=== PATIENT | male | born 1940 | race Caucasian/White ===

== ENCOUNTER 2017-10-03 13:23 | Outpatient (POV) | payer MEDICARE, SELFPAY | END 2017-10-03 16:02 | disposition home or self-care (01) | PROVIDERS: Visit Provider Podiatrist | DX: E11.52 Type 2 diabetes mellitus with diabetic peripheral angiopathy with gangrene (principal); L03.032 Cellulitis of left toe; M06.9 Rheumatoid arthritis, unspecified; M25.572 Pain in left ankle and joints of left foot | CPT/HCPCS: 99203; G0127; 73630 ==

== ENCOUNTER 2017-10-11 10:44 | Outpatient (POV) | payer MEDICARE, SELFPAY | END 2017-10-11 13:59 | disposition home or self-care (01) | PROVIDERS: Visit Provider Podiatrist | DX: M06.9 Rheumatoid arthritis, unspecified (principal); L97.523 Non-pressure chronic ulcer of other part of left foot with necrosis of muscle | CPT/HCPCS: 11042; 99213 ==

== ENCOUNTER → 2017-10-20 | Outpatient (POV) | payer MEDICARE, SELFPAY | PROVIDERS: Visit Provider Internal Medicine | DX: I25.10 Atherosclerotic heart disease of native coronary artery without angina pectoris (principal); I73.9 Peripheral vascular disease, unspecified; I10 Essential (primary) hypertension; E11.9 Type 2 diabetes mellitus without complications; R94.31 Abnormal electrocardiogram [ECG] [EKG]; I45.2 Bifascicular block | CPT/HCPCS: 93005 ==

== ENCOUNTER → 2017-10-21 | Day surgery (SDC) | payer MEDICARE, SELFPAY | PROVIDERS: Family Provider Internal Medicine; PCP Internal Medicine; Visit Provider Internal Medicine | DX: I70.262 Atherosclerosis of native arteries of extremities with gangrene, left leg (principal); I45.2 Bifascicular block | CPT/HCPCS: 37226; 75630; 80048; 85025; 85347; 99152; C1725; C1760; C1766; C1769; C1894; J1644; Q9966 ==

== ENCOUNTER → 2017-10-31 14:32 | Outpatient (CLI) | payer MEDICARE, SELFPAY ==
[2017-10-31 15:07] LABS: Basophils # 0.1 K/mm3 (0-0.2); Basophils % 0.7 % (0.1-2.0); Eosinophils % 10.7 % (0.1-12.0); Hematocrit 41.5 % (42.0-52.0); Hemoglobin 13.1 g/dL (14.1-18.0); Lymphocytes # 1.4 K/mm3 (0.7-4.5); Mean Corpuscular HGB Conc 31.6 g/dL (31.8-35.4); Mean Corpuscular Hemoglobin 34.3 pg (27.0-31.2); Mean Corpuscular Volume 108.6 fl (80-94); Mean Platelet Volume 8.5 fl (7.4-10.4); Monocytes # 0.6 K/mm3 (0.1-1.0); Monocytes % 6.1 % (1.7-9.3); Neutrophils # 6.1 K/mm3 (1.8-7.8); Neutrophils % 67.5 % (37.0-80.0); Platelet Count 424 K/mm3 (142-424); Red Blood Count 3.82 M/mm3 (4.60-6.20); Red Cell Distribution Width 14.7 % (11.5-17.5); White Blood Count 9.1 K/mm3 (4.8-10.8)
[2017-10-31 15:34] LABS: Hemoglobin A1C 6.9 % (0.0-7.0)
[2017-10-31 15:39] LABS: Anion Gap 11.3 mEq/L (5-15); Blood Urea Nitrogen 16 mg/dL (7-18); Carbon Dioxide 30 mmol/L (21.0-32.0); Chloride 100 mmol/L (98-107); Estimated Glomerular Filt Rate 73 ml/min (>60); GFR (African American) 88 ML/MIN (>60); Glucose 148 mg/dL (74-106); Potassium 5.3 mmoL/L (3.5-5.1); Sodium 136 mmol/L (136-145)
[2017-10-31 15:46] LABS: C-Reactive Protein < 0.2 mg/L (0.0-0.9)
[2017-10-31 15:58] LABS: Erythrocyte Sedimentation Rate 58 mm/hr (0-20)
== END ==
PROVIDERS: PCP Podiatrist; Visit Provider Podiatrist
DX: E10.622 Type 1 diabetes mellitus with other skin ulcer (principal); E10.9 Type 1 diabetes mellitus without complications
CPT/HCPCS: 36415; 80048; 83036; 85025; 85651; 86140

== ENCOUNTER 2017-12-02 06:00 | Day surgery (SDC) | payer MEDICARE, SELFPAY ==
[2017-11-29 14:32] VITALS: BMI 33.9
[2017-12-02] VITALS (9 sets, daily range): BP systolic 113–134; BP diastolic 60–68; PULSE 65–84; RESP 16–18; TEMP 36.1–36.4; O2SAT 93–100
[2017-12-02 06:38] LABS: POC Glucose,Bedside 132 mg/dL
--- NOTE | 2017-12-02 07:07 | P.PN_ITS ---
[facility] Anesthesia Checklist - Patient Identification Patient Identification: Arm Band - Structural Data Admitted From: Home Planned Operative Procedure/s: bmt Consent for Planned Operative Procedure(s) Verified: Yes Verified Documents: Surgical Consent, History and Physical - NPO Status Verified Time NPO: 00:00 - Additional verifications Anesthesia Reactions: No - Airway Assessment C-Spine Mobility Assessed: Yes TMJ Mobility Assessed: Yes Dentition: Edentulous - Neurological Assessment Level of Consciousness: Awake, Alert - Anesthesia Plan Anesthesia Risk discussed: Yes Anesthesia Plan: Verified ASA Class: III Anesthesia Type: General [facility] Anesthesia HX I have reviewed the patient's past medical history: Yes Medical History: Reports:: Coronary Artery Disease, Deep Vein Thrombosis, Diabetes Mellitus Type 2 (on meds and isulin), Hyperlipidemia, Hypertension, Myocardial Infarction, Peripheral Artery Disease, Peripheral Vascular Disease Denies:: Asthma, Atrial Fibrillation, Cancer, Congestive Heart Failure, Chronic Obstructive Pulmonary Disease (COPD), Gastroesophageal Reflux Disease( GERD), Gastrointestinal Bleed, Internal Pacemaker, Kidney Stones, MRSA, Osteoporosis, Pulmonary Embolism, Renal Disease, Seizures Other Medical History: Reports: Arthritis, Cataracts, Glaucoma. Denies: Blood Transfusion Reaction, Fibromyalgia, Hypothyroidism, Osteoporosis, Thyroid Disease Other Surgeries: Yes: Splenectomy, Other. No: Pacemaker Amputation: No Fractures: Yes Comment: cabg *Family Hx:: No significant family history
--- NOTE | 2017-12-02 08:12 | HMH.ANESI ---
[facility] Anesthesia Record Part I Intake, IV Amount: 500 Estimated blood loss (mL): 0 Urine output (mL): 0 Blood Pressure: 115/60 SaO2: 93 Pulse Rate: 78 Respiratory Rate: 16 Temperature: 97 F Patient is:: Awake, Stable Stable to PACU at:: 08:10
--- NOTE | 2017-12-02 08:13 | P.PN_ITS ---
[facility] Anesthesia Record Part II Discharge Time: 08:40 Destination: [facility] PACU nurse assessment reviewed?: Yes Patient Condition:: Good Anesthesia Complications:: None
--- NOTE | 2017-12-02 08:13 | HMH.ANESII ---
[facility] Anesthesia Record Part II Discharge Time: 08:40 Destination: [facility] PACU nurse assessment reviewed?: Yes Patient Condition:: Good Anesthesia Complications:: None
--- NOTE | 2017-12-02 14:41 | HMH.OPNOTE ---
Date of procedure: 12/02/17 Pre-op Diagnosis:: Chronic serous otitis media Post-op diagnosis:: same Procedure performed:: Bilateral myringotomy tube placement Surgeon:: Vito Coronado MD SAP ADMINISTRATOR:: Jay Chin Anesthesia: GETA Estimated blood loss (mL): 0 Operative findings:: With the patient under general anesthesia the right ear was prepped and draped. Using the operating microscope for all the procedure and incision was made in the posterior inferior quadrant of the right tympanic membrane. Serous fluid was aspirated and an Kline beveled tube was placed. Ciprodex drops were applied. The left ear was done in the same fashion. An Kline beveled tube was placed and Ciprodex drops were applied. Patient tolerated the procedure well and was sent to recovery in good general condition Pathology: none sent Condition: stable Disposition: PACU Complications:: none
--- NOTE | 2017-12-02 14:51 | P.OP_ITS ---
Date of procedure: 12/02/17 Pre-op Diagnosis:: Chronic serous otitis media Post-op diagnosis:: same Procedure performed:: Bilateral myringotomy tube placement Surgeon:: Vito Coronado MD SAFETY INSTRUCTOR:: Jay Chin Anesthesia: GETA Estimated blood loss (mL): 0 Operative findings:: With the patient under general anesthesia the right ear was prepped and draped. Using the operating microscope for all the procedure and incision was made in the posterior inferior quadrant of the right tympanic membrane. Serous fluid was aspirated and an Kline beveled tube was placed. Ciprodex drops were applied. The left ear was done in the same fashion. An Kline beveled tube was placed and Ciprodex drops were applied. Patient tolerated the procedure well and was sent to recovery in good general condition Pathology: none sent Condition: stable Disposition: PACU Complications:: none
== END 2017-12-02 09:06 | disposition home or self-care (01) ==
LOC: OR 06:02
PROVIDERS: Family Provider Internal Medicine; PCP Internal Medicine; Visit Provider Otolaryngology
DX: H65.20 Chronic serous otitis media, unspecified ear (principal); E11.9 Type 2 diabetes mellitus without complications; Z79.4 Long term (current) use of insulin
CPT/HCPCS: 69436; 69990; 82962; 96374

== ENCOUNTER → 2017-12-27 15:52 | Outpatient (CLI) | payer MEDICARE, SELFPAY ==
[2017-12-27 16:16] LABS: Basophils # 0.1 K/mm3 (0-0.2); Basophils % 0.9 % (0.1-2.0); Eosinophils # 0.8 K/mm3 (0.0-0.4); Eosinophils % 7.6 % (0.1-12.0); Hematocrit 42.1 % (42.0-52.0); Hemoglobin 13.2 g/dL (14.1-18.0); Lymphocytes # 1.4 K/mm3 (0.7-4.5); Lymphocytes % 13.6 K/mm3 (10-50); Mean Corpuscular HGB Conc 31.3 g/dL (31.8-35.4); Mean Corpuscular Hemoglobin 34.2 pg (27.0-31.2); Mean Corpuscular Volume 109.3 fl (80-94); Mean Platelet Volume 8.3 fl (7.4-10.4); Monocytes # 0.8 K/mm3 (0.1-1.0); Monocytes % 7.4 % (1.7-9.3); Neutrophils # 7.3 K/mm3 (1.8-7.8); Neutrophils % 70.5 % (37.0-80.0); Platelet Count 441 K/mm3 (142-424); Red Blood Count 3.85 M/mm3 (4.60-6.20); Red Cell Distribution Width 14.7 % (11.5-17.5); White Blood Count 10.3 K/mm3 (4.8-10.8)
--- NOTE | 2017-12-27 16:20 | XR_ITS ---
XR chest 2V HISTORY: ITS.REASON: HTN ORDERING PHYSICIAN: Edwige Hernandez DPM PATIENT AGE: 77 years COMPARISON: 12/15/2016 FINDINGS: Prior CABG. There is cardiomegaly without failure. The lungs are clear. No acute bony anomalies. IMPRESSION: Cardiomegaly, prior CABG, no acute finding.
[2017-12-27 16:22] LABS: C-Reactive Protein 1.5 mg/L (0.0-0.9)
[2017-12-27 17:16] LABS: Erythrocyte Sedimentation Rate 30 mm/hr (0-20)
[2017-12-27 17:32] LABS: Hemoglobin A1C 6.5 % (0.0-7.0)
== END ==
PROVIDERS: Visit Provider Podiatrist
DX: Z01.818 Encounter for other preprocedural examination (principal); E11.621 Type 2 diabetes mellitus with foot ulcer; L97.529 Non-pressure chronic ulcer of other part of left foot with unspecified severity
CPT/HCPCS: 36415; 71046; 83036; 85025; 85651; 86140; 93005

== ENCOUNTER 2017-12-28 10:54 | Day surgery (SDC) | payer MEDICARE, SELFPAY ==
--- NOTE | 2017-12-28 | XR_ITS ---
XR toe LT min 2V CLINICAL INDICATION: ITS.REASON: DEBRIDEMENT TO LT BIG TOE ORDERING PHYSICIAN: Edwige Hernandez DPM PATIENT AGE: 77 years Fluoroscopy time: 7 seconds COMPARISON: None FINDINGS: Moderate hallux valgus. 2 images submitted the C-arm available for review IMPRESSION: C-arm utilized for debridement of the left big toe
[2017-12-28 11:26] VITALS: BP 119/71; PULSE 80; RESP 18; TEMP 36.6; O2SAT 92; BMI 32.5
[2017-12-28 11:46] LABS: POC Glucose,Bedside 151 mg/dL (70-110)
--- NOTE | 2017-12-28 13:07 | P.PN_ITS ---
[facility] Anesthesia Checklist - Structural Data Admitted From: Home Planned Operative Procedure/s: i/d l foot Consent for Planned Operative Procedure(s) Verified: Yes Verified Documents: Surgical Consent - Airway Assessment C-Spine Mobility Assessed: Yes TMJ Mobility Assessed: Yes Dentition: Dentures-good fit - Neurological Assessment Level of Consciousness: Awake, Alert - Anesthesia Plan Anesthesia Risk discussed: Yes Anesthesia Plan: Verified ASA Class: III Anesthesia Type: General [facility] Anesthesia HX I have reviewed the patient's past medical history: Yes Medical History: Reports:: Coronary Artery Disease, Deep Vein Thrombosis, Diabetes Mellitus Type 2, Hyperlipidemia, Hypertension, Myocardial Infarction, Peripheral Artery Disease, Peripheral Vascular Disease Denies:: Asthma, Atrial Fibrillation, Cancer, Congestive Heart Failure, Chronic Obstructive Pulmonary Disease (COPD), Diabetes Mellitus Type 1, Gastroesophageal Reflux Disease(GERD), Gastrointestinal Bleed, Internal Pacemaker, Kidney Stones, MRSA, Osteoporosis, Pulmonary Embolism, Renal Disease , Seizures Other Medical History: Reports: Arthritis, Cataracts, Glaucoma. Denies: Blood Transfusion Reaction, Fibromyalgia, Hypothyroidism, Osteoporosis, Thyroid Disease Laterality Cases: Bilateral: Cataract Other Surgeries: Yes: Splenectomy, Other. No: Pacemaker Amputation: No Fractures: Yes *Family Hx:: No significant family history
--- NOTE | 2017-12-28 13:23 | HMH.OPNOTE ---
Date of procedure: 12/28/17 Pre-op Diagnosis:: Left Hallux Diabetic Ulcer Left Hallux Cellulitis Possible Osteomyelitis Post-op Diagnosis:: Same Procedure performed:: Left Partial Hallux Amputation Surgeon:: Edwige Hernandez DPM BULBS FARMWORKER:: Prasanna Wise Anesthesia: MAC Estimated blood loss (mL): 10 Clinical Note:: Mr. Lea is a pleasant 77-year-old diabetic RA male who presents today for follow up of a left hallux wound. Patient has been applying Santyl daily. Patient states in August 2017 he wore a pair of crocs without socks. Then he noticed some discoloration and blackness to the tip of the toe. He underwent revascularization by Dr. Sauceda 10/21/17 and had 2 stents placed. Patient has been attending HBO with Dr. Porfirio Morfin since 11/21/17. On 12/02/17 he had surgery by Dr. Coronado for bilateral myringotomy tube placement, as a complication from HBO. Dr. Morfin referred the patient back to me to surgical evaluation of worsening redness, malodor and non healing ulcer. 10/21/17: Dr. Sauceda (vascular): 1. catheter placement in the abdominal aorta, 2. abdominal aortography, 3. Repositioning the catheter in the abdominal aorta, 4. Bilateral iliofemoral runoff, 5. Stent deployment to the left popliteal artery for the indications of gangrenous left great toe, peripheral artery disease and popliteal artery stenosis. 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 2 vessel runoff is present below the knee. PRE-OP AMPUTATION/INFECTION: The patient has been having daily HBO therapy at [facility] with Dr. Porfirio Morfin. Patient was referred back to me today for surgical evaluation. Since I last saw him 11/17/17, the wound looks larger, more edematous and erythematous. I had a long discussion with the patient in regards to aggressive debridement versus amputation. I explained to the patient that after I debrided if there is exposed bone we could put a graft or I could do a definitive amputation. Patient has expressed frustration with the wound and he said he would rather not have to deal with a long postop course of daily wound care. Patient states that if post debridement the wound or bone appears bad he would rather that I be more aggressive and do the amputation. We discussed surgical intervention for amputation of the left hallux amputation versus aggressive debridement with application of wound graft (bone biopsy). Patient understands that there is a chance that the toes can migrate to fill the gap or the foot may change shape after surgery. Patient also understands that they could have wound healing complications including delayed healing and infection. We discussed that if the wound does not heal, it is possible that they may need a more proximal amputation and could result in further loss of digits, loss of partial foot or loss of leg. We discussed the risks and benefits in great detail. Other surgical risks include: prolonged pain and swelling, further infection requiring oral or IV antibiotics, delay in healing of soft tissue or bone, nerve or blood vessel damage, CRPS/RSD, DVT, anesthesia complications, and even . Plan for new x-rays intra-op tomorrow. Patient did see his PCP, Dr. Olea earlier this month. Patient has surgery with Dr. Coronado 12/02/17. Pre-op labs today 12/27/17 (compared to labs from 10/31/17): ESR 30 (58), CRP 1.5 (<0.2), Ha1c 6.5 (6.9), CBC 10.3 (9.1), neutrophils 70.5% (67.5), EKG pending Plan for surgery, [facility] 12/28/17: left hallux wound debridement with graft application, possible hallux amputation Operative findings:: Ulcer noted to the medial distal left hallux measuring preoperatively 3.1?2.2 cm. The wound base was fibrotic with areas of necrotic tissue. There is no periwound maceration. There was periwound cellulitis extending to the first metatarsophalangeal joint.
[2017-12-28 14:33] VITALS: BP 108/54; PULSE 79; RESP 16; TEMP 36.8; O2SAT 97
[2017-12-28 14:48] VITALS: BP 108/66; PULSE 78; RESP 16; O2SAT 95
--- NOTE | 2017-12-28 15:02 | XR_ITS ---
XR foot LT min 3V HISTORY: Follow-up indication ITS.REASON: post op ORDERING PHYSICIAN: Edwige Hernandez DPM PATIENT AGE: 77 years COMPARISON: 10/03/2017 FINDINGS: Status post amputation at the first interphalangeal joint. Bandage artifact is present. Diffuse vascular calcification. No fracture or dislocation. IMPRESSION: Status post amputation of the first interphalangeal joint
[2017-12-28 15:03] VITALS: BP 105/54; PULSE 81; RESP 16; O2SAT 95
[2017-12-28 15:18] VITALS: BP 105/53; PULSE 75; RESP 16; O2SAT 95
[2017-12-28 15:40] VITALS: BP 107/58; PULSE 79; RESP 16; O2SAT 95
== END 2017-12-28 15:40 | disposition home or self-care (01) ==
LOC: OR 10:56
PROVIDERS: Family Provider Internal Medicine; PCP Internal Medicine; Visit Provider Podiatrist
PROC: (CPT 28124; principal; 2017-12-28 12:30)
DX: M86.172 Other acute osteomyelitis, left ankle and foot (principal); L98.496 Non-pressure chronic ulcer of skin of other sites with bone involvement without evidence of necrosis; I45.10 Unspecified right bundle-branch block; L03.90 Cellulitis, unspecified; Z95.820 Peripheral vascular angioplasty status with implants and grafts; M72.6 Necrotizing fasciitis; I10 Essential (primary) hypertension; B95.7 Other staphylococcus as the cause of diseases classified elsewhere; M86.672 Other chronic osteomyelitis, left ankle and foot; E11.622 Type 2 diabetes mellitus with other skin ulcer; Z95.5 Presence of coronary angioplasty implant and graft
CPT/HCPCS: 28124; 73630; 73660; 76000; 82962; 87070; 87077; 87186; 87205; 88305; 88311; 96374; J3370

== ENCOUNTER → 2018-01-05 14:59 | Outpatient (CLI) | payer MEDICARE, SELFPAY ==
[2018-01-05 15:23] LABS: Basophils # 0.1 K/mm3 (0-0.2); Basophils % 0.5 % (0.1-2.0); Eosinophils # 0.7 K/mm3 (0.0-0.4); Eosinophils % 5.6 % (0.1-12.0); Hemoglobin 12.4 g/dL (14.1-18.0); Lymphocytes # 1.1 K/mm3 (0.7-4.5); Lymphocytes % 9.6 K/mm3 (10-50); Mean Corpuscular HGB Conc 31.6 g/dL (31.8-35.4); Mean Corpuscular Hemoglobin 33.4 pg (27.0-31.2); Mean Corpuscular Volume 105.6 fl (80-94); Mean Platelet Volume 8.4 fl (7.4-10.4); Monocytes # 0.5 K/mm3 (0.1-1.0); Monocytes % 4.2 % (1.7-9.3); Neutrophils # 9.2 K/mm3 (1.8-7.8); Neutrophils % 80.1 % (37.0-80.0); Platelet Count 536 K/mm3 (142-424); Red Cell Distribution Width 14.2 % (11.5-17.5); White Blood Count 11.5 K/mm3 (4.8-10.8)
[2018-01-05 16:05] LABS: Erythrocyte Sedimentation Rate > 120 mm/hr (0-20)
[2018-01-05 17:52] LABS: Alanine Aminotransferase 21 U/L (12-78); Albumin Level 2.9 gm/dL (3.4-5.0); Albumin/Globulin Ratio 0.7 (1.1-1.8); Alkaline Phosphatase 83 U/L (46-116); Anion Gap 15.1 mEq/L (5-15); Aspartate Amino Transferase 16 U/L (15-37); Bilirubin,Total 0.4 mg/dL (0.2-1.0); Blood Urea Nitrogen 19 mg/dL (7-18); Carbon Dioxide 29 mmol/L (21.0-32.0); Chloride 93 mmol/L (98-107); Creatinine,Serum 0.98 mg/dL (0.70-1.30); Estimated Glomerular Filt Rate 74 ml/min (>60); GFR (African American) 90 ML/MIN (>60); Glucose 234 mg/dL (74-106); Potassium 5.1 mmoL/L (3.5-5.1); Sodium 132 mmol/L (136-145); Total Protein,Serum 6.9 gm/dL (6.4-8.2)
[2018-01-05 17:58] LABS: C-Reactive Protein 17.9 mg/L (0.0-0.9)
== END ==
PROVIDERS: Family Provider Internal Medicine; PCP Internal Medicine; Visit Provider Podiatrist
DX: Z98.890 Other specified postprocedural states (principal); I45.10 Unspecified right bundle-branch block
CPT/HCPCS: 36415; 80053; 85025; 85651; 86140; 87070; 87077; 87205

== ENCOUNTER 2018-01-06 09:58 | Inpatient (IN) | payer MEDICARE, SELFPAY ==
[2018-01-06] VITALS (19 sets, daily range): BP systolic 94–132; BP diastolic 42–77; PULSE 75–105; RESP 12–20; TEMP 36.3–43; O2SAT 90–96; BMI 32.5; BMI 31.8
--- NOTE | 2018-01-06 10:48 | XR_ITS ---
XR chest portable COMPARISON: PA and lateral chest 12/27/2017 HISTORY: PICC line placement TECHNIQUE: Portable upright chest FINDINGS: The PICC line is seen ascending the left axillary vein and the tip is at the junction of the innominate vein with superior vena cava. The lung [place] remain clear and there is no pleural fluid. There is no pneumothorax. IMPRESSION: PICC line placement as described above
[2018-01-06 11:16] LABS: POC Glucose,Bedside 141 mg/dL (70-110)
--- NOTE | 2018-01-06 12:13 | HMH.OPNOTE ---
Date of procedure: 01/06/18 Pre-op Diagnosis:: Left hallux cellulitis Left foot gas gangrene S/p left partial hallux amp 12/28/17 Post-op Diagnosis:: Left hallux cellulitis Left foot necrotizing fasciitis Procedure performed:: Left Hallux Incision and Drainage Left Transmetatarsal Amputation Surgeon:: Edwige Hernandez DPM HAIR SPINNING MACHINE OPERATOR:: Jay Chin Anesthesia: LMA Estimated blood loss (mL): 5 Clinical Note:: Labs 01/08/18: WBC 11.5, CRP 17.9, ESR >120, Neutrophil 80.1%, glucose 234 Wound culture: gram positive bacilli Based on the wound culture result this morning GPB, we called the patient to come in for reevaluation. The wound is more wet than yesterday. There is malodor, pain and increased edema and erythema. We discussed surgical intervention for amputation of the left hallux and possible 1st ray resection. Patient understands that there is a chance that the toes can migrate to fill the gap or the foot may change shape after surgery. Patient also understands that they could have wound healing complications including delayed healing and infection. We discussed that if the wound does not heal, it is possible that they may need a more proximal amputation and could result in further loss of digits, loss of partial foot or loss of leg. We discussed the risks and benefits in great detail. Other surgical risks include: prolonged pain and swelling, further infection requiring oral or IV antibiotics, delay in healing of soft tissue or bone, nerve or blood vessel damage, CRPS/RSD, DVT, anesthesia complications, and even . Patient has recent lab work from yesterday and medical clearance from previous surgery 12/28/17. Plan for OR now for incision and drainage, left hallux amp, possible left partial 1st ray resection Operative findings:: Left hallux cellulitis and edema had spread proximally. Erythema noted extending to the TN joint as well as to the distal one third of the leg. There was a clear space with no erythema over the ankle. There was brown dishwater drainage coming from the suture flap site. Upon disarticulation of the hallux at the first MPJ there was soto discoloration noted to the muscle the tissue was necrotic there is malodor noted. There is breakdown of the tissue planes with infection spreading to the second MPJ. Discoloration duskiness and erythema noted to the second third and fourth MPJs plantarly. Operative note:: On this date and time patient was deemed an appropriate surgical candidate. With informed consent signed, the patient was taken to the operating theater. The patient was positioned supine. LMA anesthesia was induced. No tourniquet used. Intraoperative fluoroscopy was utilized to take pictures of the left foot preoperatively. Left hallux incision and drainage: The left lower extremity was prepped and draped in normal sterile fashion. Attention was directed to the plantar medial aspect of the left hallux where new necrotic tissue was noted. The distal tip of the proximal phalanx where the flap was sutured was necrotic with brown dishwater drainage seeping from it. Sutures were loose. Macerated wet skin noted extending from the sutures into the interspace and over the second metatarsophalangeal joint. The second through fourth MPJs plantarly were dusky with erythema noted. Cellulitis is noted extending from the MPJ to TNJ, clear at ankle, and more erythema noted on distal leg. Wound probed directly to the bone and purulent drainage was coming from the wound site. A wound culture was taken. A racketball incision was mapped out over the left hallux to first MPJ. Utilizing a 15 blade dissection was carried down sharply to the level of the bone around the proximal phalanx was disarticulated from the first MPJ. The phalanx bone was soft and crumbly and had a slight malodor to it. It was sent for bone culture. This point the wound was explored. Tissue around the first metatarsal head was necrotic and the muscle was soto. The soft
--- NOTE | 2018-01-06 13:42 | XR_ITS ---
XR foot LT 2V COMPARISON: Left foot 12/28/2017 HISTORY: Probable diabetic neuropathy, post previous amputation distal phalanx great toe TECHNIQUE: Fluoroscopy for amputation procedure FINDINGS: Initial fluoroscopy shows the capitate distal phalanx great toe, metatarsals and remaining phalanges are seen with mild hammertoe deformities of the second through fifth toes. Subsequent fluoroscopic images show amputation of all the metatarsals and phalanges at the level of the distal shaft of the metatarsals. IMPRESSION: Satisfactory amputation of the forefoot as described
--- NOTE | 2018-01-06 14:11 | P.PN_ITS ---
[facility] Anesthesia Record Part I Intake, IV Amount: 800 Estimated blood loss (mL): 100 Urine output (mL): 0 Blood Pressure: 114/42 SaO2: 96 Pulse Rate: 90 Respiratory Rate: 12 Temperature: 97.4 F Patient is:: Awake, Stable Stable to PACU at:: 14:10
--- NOTE | 2018-01-06 14:12 | P.PN_ITS ---
[facility] Anesthesia Record Part II Discharge Time: 14:40 Destination: floor PACU nurse assessment reviewed?: Yes Patient Condition:: Good Anesthesia Complications:: None
--- NOTE | 2018-01-06 14:13 | XR_ITS ---
XR foot LT min 3V COMPARISON: Fluoroscopy at time of surgery HISTORY: Post appendectomy dictation TECHNIQUE: AP lateral and oblique views FINDINGS: There has been amputation of the distal metatarsals and phalanges with well demarcated postsurgical truncation at the dictation sites.. There are somewhat heterogenic appearing soft tissue around the dictation sites probably due to post surgical changes of the soft tissues. IMPRESSION: Satisfactory amputation of the forefoot as described
[2018-01-06 14:33] LABS: POC Glucose,Bedside 157 mg/dL (70-110)
--- NOTE | 2018-01-06 14:49 | P.CONPHA_ITS ---
- Pharmacy Consult Date: 01/06/18 Time: 14:47 Referring provider: DR. MAHONEY Reason for Consult:: VANCOMYCIN DOSING Allergies and ADEs:: Allergies Allergy/AdvReac Type Severity Reaction Status Date / Time Penicillins Allergy Severe S-BLISTERING Verified 01/05/18 13:48 WELTS Home Medications:: Home Medications Medication Instructions Recorded Confirmed Type aspirin 81 mg tablet,delayed 81 mg PO QDAY 10/25/17 01/06/18 History release celecoxib 200 mg capsule 200 mg PO BID cap 10/25/17 01/06/18 History etanercept 50 mg/mL (0.98 mL) 50 mg IV WEEKLY 10/25/17 01/06/18 History subcutaneous cartridge folic acid 1 mg tablet 1 mg PO QDAY 10/25/17 01/06/18 History furosemide 40 mg tablet 40 mg PO QDAY 10/25/17 01/06/18 History glipizide 10 mg tablet 10 mg PO QDAY 10/25/17 01/06/18 History insulin human U-100 NPH-regulr 15 unit SUB-Q QPMWM 10/25/17 01/06/18 History 70-30 mix 100 unit/mL subcutaneous susp melatonin 10 mg tablet 10 mg PO HS PRN 10/25/17 01/06/18 History methotrexate sodium 2.5 mg tablet 2.5 mg PO ONCE 10/25/17 01/06/18 History metoprolol succinate ER 25 mg 25 mg PO BID tab 10/25/17 01/06/18 History tablet,extended release 24 hr omeprazole 20 mg tablet,delayed 20 mg PO QDAY tab 10/25/17 01/06/18 History release pioglitazone 30 mg tablet 30 mg PO QDAY 10/25/17 01/06/18 History prednisone 1 mg tablet 1 mg PO ONCE 10/25/17 01/06/18 History valsartan 320 mg tablet 320 mg PO QDAY 10/25/17 01/06/18 History clopidogrel 75 mg tablet 75 mg PO QDAY 10/26/17 01/06/18 History atorvastatin 80 mg tablet 80 mg PO QDAY 10/31/17 01/06/18 History gabapentin 300 mg capsule 300 mg PO Q8H 10/31/17 01/06/18 History metformin 1,000 mg tablet 1,000 mg PO BID 10/31/17 01/06/18 History timolol maleate 0.5 % eye drops 1 drp OPHTHALMIC BID 10/31/17 01/06/18 History clindamycin HCl 300 mg capsule 300 mg PO DAILY 14 Days cap 12/27/17 01/06/18 History polyethylene glycol 3350 17 17 g PO ONCE g 01/05/18 01/06/18 History gram/dose oral powder Height: 1.83 m Weight: 108.862 kg Laboratory Results:: Laboratory Results - last 24 hr 01/06/18 10:53: POC Glucose 141 01/06/18 14:25: POC Glucose 157 Medical History: Reports:: Coronary Artery Disease, Deep Vein Thrombosis, Diabetes Mellitus Type 2, Hyperlipidemia, Hypertension, Myocardial Infarction, Peripheral Artery Disease, Peripheral Vascular Disease Denies:: Asthma, Atrial Fibrillation, Cancer, Congestive Heart Failure, Chronic Obstructive Pulmonary Disease (COPD), Diabetes Mellitus Type 1, Gastroesophageal Reflux Disease(GERD), Gastrointestinal Bleed, Internal Pacemaker, Kidney Stones, MRSA, Osteoporosis, Pulmonary Embolism, Renal Disease , Seizures Assessment and Plan - Assessment and plan all Dx Assessment and Plan for all problems:: BASED ON PATIENT FACTORS, RECOMMEND VANCOMYCIN 1,500MG IV EVERY 12 HOURS. PATIENT RECEIVED ONE TIME DOSE OF VANCOMYCIN 2GM PREOPERATIVE. WILL OBTAIN TROUGH LEVEL PRIOR TO THE FOURTH DOSE. PHARMACY WILL MONITOR AND ADJUST DOSE APPROPRIATE. -COLIN REGALADO, EPHRAIMD
--- NOTE | 2018-01-06 15:16 | PC.NURSE ---
1420-checked fsbs w/results of 157 radiology at bedside
--- NOTE | 2018-01-06 15:22 | PC.NURSE ---
1438-detailed report called to [place],RN 1440-Pt transported to 2nd floor room 203 via hospital bed and left in care of KATHARINE Camarena w/bed locked in lowest position per KATHARINE Carlton and KATHARINE Waldron. VSS. PT stable .
--- NOTE | 2018-01-06 15:43 | SUR.OPER ---
1245-Family notified and agreed to Left Transmetatarsal Amputation, consent updated. 1255-Dr. Hernandez to talk to family.
--- NOTE | 2018-01-06 17:25 | HMH.HP ---
*Admission Date: 01/06/18 *Chief complaint: Gangrenous foot with cellulitis *History of present illness: 77-year-old white male who suffers from diabetes, coronary disease, and rheumatoid arthritis who has been following with podiatry here over the past week for foot infection. Wound culture showed Staphylococcus that was amenable to outpatient clindamycin but examination of his wound showed significant progression over the past 48 hours and was brought to the OR this morning for metatarsal amputation which was accomplished. Please see surgical note. Given the seriousness of the infection, his comorbid conditions and low-grade temperatures and elevated white count it was felt he would require IV antibiotics to forestall further infection or the development of bloodstream infection. The patient himself now feels good, denies breathing or GI effects. Has no foot in the pain at this point. Podiatry surgical notes reviewed. [facility] History Medical History: Reports:: Coronary Artery Disease, Deep Vein Thrombosis, Diabetes Mellitus Type 2, Hyperlipidemia, Hypertension, Myocardial Infarction, Peripheral Artery Disease, Peripheral Vascular Disease Denies:: Asthma, Atrial Fibrillation, Cancer, Congestive Heart Failure, Chronic Obstructive Pulmonary Disease (COPD), Diabetes Mellitus Type 1, Gastroesophageal Reflux Disease(GERD), Gastrointestinal Bleed, Internal Pacemaker, Kidney Stones, MRSA, Osteoporosis, Pulmonary Embolism, Renal Disease, Seizures Other Medical History: Reports: Arthritis, Cataracts, Glaucoma. Denies: Blood Transfusion Reaction, Fibromyalgia, Hypothyroidism, Osteoporosis, Thyroid Disease Laterality Cases: Bilateral: Myringotomy (Ear Tubes) Other Surgeries: Yes: Splenectomy, Other. No: Pacemaker Amputation: Yes (Left hallux partial amputation) Fractures: Yes - *Social History Educational Level: Completed High School Smoking Status: Never smoker Tobacco Type: cigarettes #Yrs smoked (if former smoker): 25 Alcohol Intake: never Alcohol Intake Frequency:: 0-2 drinks per day Substance Use Type: denies use Occupational Status: retired Housing: house Household Members: spouse - Psychiatric History Expresses thoughts of harming self/others: None Suicide Plan Description: No Plan *Family Hx:: No significant family history Review of Systems - Review of Systems Review of systems:: unable to obtain, other, pertinent systems reviewed and negative unless documented below - Constitutional Denies anorexia, Denies body ache(s), Denies chills - Eyes Denies blind spots, Denies blurry vision - *Cardiovascular Denies chest pain, Denies chest pain at rest, Denies chest pain with activity - *Respiratory Denies change in phlegm color, Denies chest congestion, Denies cough - *Gastrointestinal Denies abdominal pain, Denies belching, Denies bloating - *Genitourinary Denies difficulty urinating - *Musculoskeletal Reports abnormal walking, Reports joint pain - *Neurologic Reports abnormal walking, Denies abnormal hearing, Denies abnormal movements - Psychiatric Denies abnormal sleep pattern Meds Home Medications Medication Instructions Recorded Confirmed Type aspirin 81 mg tablet,delayed 81 mg PO QDAY 10/25/17 01/06/18 History release celecoxib 200 mg capsule 200 mg PO BID cap 10/25/17 01/06/18 History etanercept 50 mg/mL (0.98 mL) 50 mg IV WEEKLY 10/25/17 01/06/18 History subcutaneous cartridge folic acid 1 mg tablet 1 mg PO QDAY 10/25/17 01/06/18 History furosemide 40 mg tablet 40 mg PO QDAY 10/25/17 01/06/18 History glipizide 10 mg tablet 10 mg PO QDAY 10/25/17 01/06/18 History insulin human U-100 NPH-regulr 15 unit SUB-Q QPMWM 10/25/17 01/06/18 History 70-30 mix 100 unit/mL subcutaneous susp melatonin 10 mg tablet 10 mg PO HS PRN 10/25/17 01/06/18 History methotrexate sodium 2.5 mg tablet 2.5 mg PO ONCE 10/25/17 01/06/18 History metoprolol succinate ER 25 mg 25 mg PO BID tab 10/25/17 01/06/18 History tab
--- NOTE | 2018-01-06 17:28 | P.HP_ITS ---
*Admission Date: 01/06/18 *Chief complaint: Gangrenous foot with cellulitis *History of present illness: 77-year-old white male who suffers from diabetes, coronary disease, and rheumatoid arthritis who has been following with podiatry here over the past week for foot infection. Wound culture showed Staphylococcus that was amenable to outpatient clindamycin but examination of his wound showed significant progression over the past 48 hours and was brought to the OR this morning for metatarsal amputation which was accomplished. Please see surgical note. Given the seriousness of the infection, his comorbid conditions and low-grade temperatures and elevated white count it was felt he would require IV antibiotics to forestall further infection or the development of bloodstream infection. The patient himself now feels good, denies breathing or GI effects. Has no foot in the pain at this point. Podiatry surgical notes reviewed. [facility] History Medical History: Reports:: Coronary Artery Disease, Deep Vein Thrombosis, Diabetes Mellitus Type 2, Hyperlipidemia, Hypertension, Myocardial Infarction, Peripheral Artery Disease, Peripheral Vascular Disease Denies:: Asthma, Atrial Fibrillation, Cancer, Congestive Heart Failure, Chronic Obstructive Pulmonary Disease (COPD), Diabetes Mellitus Type 1, Gastroesophageal Reflux Disease(GERD), Gastrointestinal Bleed, Internal Pacemaker, Kidney Stones, MRSA, Osteoporosis, Pulmonary Embolism, Renal Disease , Seizures Other Medical History: Reports: Arthritis, Cataracts, Glaucoma. Denies: Blood Transfusion Reaction, Fibromyalgia, Hypothyroidism, Osteoporosis, Thyroid Disease Laterality Cases: Bilateral: Myringotomy (Ear Tubes) Other Surgeries: Yes: Splenectomy, Other. No: Pacemaker Amputation: Yes (Left hallux partial amputation) Fractures: Yes - *Social History Educational Level: Completed High School Smoking Status: Never smoker Tobacco Type: cigarettes #Yrs smoked (if former smoker): 25 Alcohol Intake: never Alcohol Intake Frequency:: 0-2 drinks per day Substance Use Type: denies use Occupational Status: retired Housing: house Household Members: spouse - Psychiatric History Expresses thoughts of harming self/others: None Suicide Plan Description: No Plan *Family Hx:: No significant family history Review of Systems - Review of Systems Review of systems:: unable to obtain, other, pertinent systems reviewed and negative unless documented below - Constitutional Denies anorexia, Denies body ache(s), Denies chills - Eyes Denies blind spots, Denies blurry vision - *Cardiovascular Denies chest pain, Denies chest pain at rest, Denies chest pain with activity - *Respiratory Denies change in phlegm color, Denies chest congestion, Denies cough - *Gastrointestinal Denies abdominal pain, Denies belching, Denies bloating - *Genitourinary Denies difficulty urinating - *Musculoskeletal Reports abnormal walking, Reports joint pain - *Neurologic Reports abnormal walking, Denies abnormal hearing, Denies abnormal movements - Psychiatric Denies abnormal sleep pattern Meds Home Medications Medication Instructions Recorded Confirmed Type aspirin 81 mg tablet,delayed 81 mg PO QDAY 10/25/17 01/06/18 History release celecoxib 200 mg capsule 200 mg PO BID cap 10/25/17 01/06/18 History etanercept 50 mg/mL (0.98 mL) 50 mg IV WEEKLY 10/25/17 01/06/18 History subcutaneous cartridge folic acid 1 mg tablet 1 mg PO QDAY 10/25/17 01/06/18 History furosemide 40 mg tablet
--- NOTE | 2018-01-06 17:48 | PC.NURSE ---
PT IS RESTING IN BED, NO COMPLAINTS OF DISCOMFORT, ALERT AND ORIENTED X3. DRESSING TO LEFT FOOT IS C/D/I AND IS ELEVATED ON 2 PILLOWS. LUNG SOUNDS CLEAR, BOWEL SOUNDS NORMAL, PT HAS BEEN VOIDING, EATING WELL, VSS, WILL CONTINUE TO MONITOR.
--- NOTE | 2018-01-06 19:30 | PC.NURSE ---
report given to mj
[2018-01-07] VITALS (7 sets, daily range): BP systolic 114–134; BP diastolic 33–62; PULSE 77–109; RESP 18–20; TEMP 36.8–37.2; O2SAT 90–96
--- NOTE | 2018-01-07 04:37 | PC.NURSE ---
PATIENT HAS SLEPT ON AND OFF THIS SHIFT. LLE REMAINS ELEVATED. DRESSING TO LEFT FOOT SURGICAL SITE CDI. REDNESS TO LLE DOESN'T SEEM TO HAVE SPREAD BEYOND MARKINGS. PATIENT AFEBRILE. C/O PAIN X2 AND RECEIVED PRN PAIN MEDICATION, WHICH HE STATED WAS EFFECTIVE. PATIENT VERY PLEASANT AND TALKATIVE. NO OTHER PROBLEMS NOTED AT THIS TIME. VSS. WILL CONTINUE TO MONITOR.
--- NOTE | 2018-01-07 05:30 | PC.NURSE ---
PATIENT C/O INCREASED PAIN AT THIS TIME. PRN NORCO NOT DUE. PATIENT OFFERED PRN MORPHINE AND REFUSED, STATING HE ISN'T GOING HOME WITH MORPHINE SO HE DOESN'T WANT IT NOW. EXPLAINED TO PATIENT THAT MORPHINE CAN BE USED IN BETWEEN PO PAIN MEDS FOR BREAKTHROUGH PAIN, HOWEVER HE STILL REFUSED. PATIENT INFORMED TO LET STAFF KNOW IF HE DOES DECIDE TO HAVE MORPHINE; PATIENT VERBALIZED UNDERSTANDING. WILL CONTINUE TO MONITOR.
--- NOTE | 2018-01-07 07:19 | P.PN_ITS ---
Internal Medicine - PN: Subj *Date: 01/07/18 *Time: 07:18 Interval history: Patient underwent successful left great toe amputation yesterday by Dr. Mills. He states this morning the amputation site can become quite painful and that pain medication does not last quite long enough. Otherwise he feels well Exam Vital signs and Labs for Last 24 Hours: Temp Pulse Resp BP Pulse Ox 98.7 F 91 H 18 134/62 94 L 01/07/18 04:00 01/07/18 04:00 01/07/18 04:00 01/07/18 04:00 01/07/18 04:00 Laboratory Results - last 24 hr 01/06/18 10:53: POC Glucose 141 01/06/18 14:25: POC Glucose 157 I & O for Last 24 hours: Intake & Output 01/04/18 01/05/18 01/06/18 01/07/18 11:59 11:59 11:59 11:59 Intake Total 1810 / 1810 Output Total 1675 / 1675 Balance 135 / 135 Weight 240 lb 235 lb 3 oz Microbiology Reports for the Last 24 Hours: Microbiology 01/06/18 13:24 Toe,Left Great Gram Stain - Final 01/06/18 13:24 Toe,Left Fifth Gram Stain - Final 01/06/18 13:24 Foot,Left Gram Stain - Final 01/06/18 13:24 Foot,Left Gram Stain - Final 01/06/18 13:24 Foot,Left Gram Stain - Final 01/06/18 13:24 Foot,Left Gram Stain - Final Narrative: Patient appears comfortable. Lungs are clear. Heart has a regular rate and rhythm. Foot is bandaged and I chose not to remove the bandage as Dr. Mills will be in later to examine the surgical site Assessment and Plan (1) CAD (coronary artery disease) Current visit: No Status: Chronic Qualifiers: Coronary Disease-Associated Artery/Lesion type: [place] artery [place] vs. transplanted heart: [place] heart Associated angina: without angina Qualified Code(s): I25.10 - Atherosclerotic heart disease of [place] coronary artery without angina pectoris Category: Medical Code(s): I25.10 - Atherosclerotic heart disease of [place] coronary artery without angina pectoris (2) Diabetes mellitus Current visit: No Status: Chronic Qualifiers: Diabetes mellitus type: type 2 Diabetes mellitus extermination inspector insulin use: without care home use Diabetes mellitus complication status: without complication Qualified Code(s): E11.9 - Type 2 diabetes mellitus without complications Category: Medical Code(s): E11.9 - Type 2 diabetes mellitus without complications (3) PAD (peripheral artery disease) Current visit: No Status: Chronic Category: Medical Code(s): I73.9 - Peripheral vascular disease, unspecified - Assessment and plan all Dx Assessment and Plan for all problems:: Doing well, await podiatry assessment and plan
--- NOTE | 2018-01-07 07:31 | PC.NURSE ---
REPORT GIVEN TO Elke ALANIZ W/C
[2018-01-07 08:06] LABS: Basophils # 0.1 K/mm3 (0-0.2); Basophils % 0.7 % (0.1-2.0); Eosinophils # 0.7 K/mm3 (0.0-0.4); Eosinophils % 6.1 % (0.1-12.0); Hematocrit 34.2 % (42.0-52.0); Hemoglobin 10.8 g/dL (14.1-18.0); Lymphocytes # 1.7 K/mm3 (0.7-4.5); Lymphocytes % 14.5 K/mm3 (10-50); Mean Corpuscular HGB Conc 31.7 g/dL (31.8-35.4); Mean Corpuscular Hemoglobin 33.3 pg (27.0-31.2); Mean Corpuscular Volume 105.1 fl (80-94); Mean Platelet Volume 8.9 fl (7.4-10.4); Monocytes # 0.8 K/mm3 (0.1-1.0); Monocytes % 6.7 % (1.7-9.3); Neutrophils # 8.6 K/mm3 (1.8-7.8); Platelet Count 587 K/mm3 (142-424); Red Blood Count 3.25 M/mm3 (4.60-6.20); Red Cell Distribution Width 14.4 % (11.5-17.5); White Blood Count 11.9 K/mm3 (4.8-10.8)
--- NOTE | 2018-01-07 11:46 | P.PN_ITS ---
Subjective Date: 01/07/18 Time: 11:15 Principal diagnosis: Left foot cellulitis, necrotizing fasciitis Interval history: Mr. Hamm is a 77-year-old male who was admitted yesterday after left foot incision and drainage and transmetatarsal amputation. Patient states his appetite has returned and is feeling overall better. His pain has decreased. He also denies fever and chills, nausea and vomiting, shortness of breath and chest pain. S/p left foot incision and drainage, transmetatarsal amputation POD # 1 PN: Obj Ex Vital signs: Temp Pulse Resp BP Pulse Ox 98.3 F 80 18 123/55 92 L 01/07/18 11:39 01/07/18 11:39 01/07/18 11:39 01/07/18 11:39 01/07/18 11:39 - Constitutional no acute distress - Routine HEENT Exam Head: Present: normocephalic - Routine Extremities Exam Present: edema, amputation. Absent: cyanosis - Detailed Lower Extremity Exam Foot/Toes: Left amputation (L TMA), Left erythema (improved from yesterday), Left swelling (non pitting edema), Left tenderness (mild) Top foot image: 1 - Amputated Comments: The erythema extending to the distal leg has greatly improved. There is some nonpitting edema noted to the left foot. Sutures are intact. Small opening at the apex of the incision line has packing. Packing removed. No purulence or malodor noted. Decreased pain to palpation of the distal foot. Foot is not as hot as it was yesterday. No lymphangitis or palpable popliteal lymph nodes. No calf or thigh pain noted bilaterally. Progress Note: A&P (1) CAD (coronary artery disease) Status: Chronic Current Visit: No (2) Diabetes mellitus Status: Chronic Current Visit: No (3) PAD (peripheral artery disease) Status: Chronic Current Visit: No (4) Cellulitis Start date: 01/05/18 Start time: 08:00 Status: Acute Assessment and plan: S/p left foot incision and drainage, transmetatarsal amputation POD # 1 Intra-op wound culture, 3/7/18: Staphylococcus lugdunensis, Gram Positive Bacilli (resistant to Clinda, changed to po Cipro) Intra-op bone path (left hallux distal phalanx), 12/28/17: Acute and chronic osteomyelitis Office wound culture, 01/05/18: Gram Positive Bacilli, Cocci Intra-op wound culture, 01/06/18: GPC The left foot dressing was removed today. Saline was used to clean the incision site and flushed the small opening at the apex of the incision. Wound explored no purulence or malodor noted. Infection looks to be much improved with decrease in pain, edema and erythema. Quarter inch packing was soaked in Betadine and packed into the wound. Soaked Xeroform followed by Betadine soaked 4 x 4, dry 4 x 4 and Kerlix was secured to the left foot. 1. Dr. Hernandez will do dressing change again tomorrow 2. PICC in place, continue IV Abx (Vanco) 3. Await intra-op wound culture from 01/06/18 4. Intra-op bone cultures and path pending 5. NWB left foot, has post op shoe and walker at home 6. Elevate on pillow for pain and swelling 7. senior living plan: will need PICC, IV Abx 4 (up to 6) weeks, daily dressing changes with packing, weekly follow up outpt with me Current Visit: Yes (5) Osteomyelitis Start date: 12/28/17 Status: Acute Assessment and plan: See above Current Visit: Yes (6) Necrotizing fasciitis Start date: 01/05/18 Status: Acute Assessment and plan: See above Current Visit: Yes
--- NOTE | 2018-01-07 13:22 | P.CONPHA_ITS ---
[facility] Pharmacy VTE Monitoring - Patient Demographics Admission date: 01/07/18 Report Date: 01/07/18 Time: 13:22 Allergies/Adverse Reactions: Patient Allergies Penicillins Allergy (Severe, Verified 01/05/18 13:48) S-BLISTERING WELTS Height: 1.83 m Weight: 106.679 kg Patient Problems: Current Active Problems Cellulitis (Acute) Osteomyelitis (Acute) Necrotizing fasciitis (Acute) - VTE Risk Labs: VTE Related Lab Results Hgb 10.8 g/dL (14.1-18.0) L 01/07/18 06:44 Hct 34.2 % (42.0-52.0) L 01/07/18 06:44 Plt Count 587 K/mm3 (142-424) H 01/07/18 06:44 VTE Score: 6 VTE Risk Level: Moderate Risk - Prophylaxis Location of Applied Device: Refused - VTE Diagnosis Confirmed Comment: ARMANI BARRIOS ORDERED
[2018-01-07 16:38] LABS: POC Glucose,Bedside 285 mg/dL (70-110)
--- NOTE | 2018-01-07 18:58 | PC.NURSE ---
Report to be given to Elke Harrell RN
[2018-01-07 22:37] LABS: Vancomycin,Trough 14.4 mcg/ml (10.0-20.0)
--- NOTE | 2018-01-08 03:43 | PC.NURSE ---
C/O PAIN IN L FOOT THIS SHIFT. PT STATED IT IS INTERMITTENT, IT IS REALLY INTENSE/SHARP THEN IT GOES AWAY. MEDICATED PT PER MAR WITH PRN PAIN MEDICATIONS, PT REPORTS RELIEF WITH THESE MEDICATIONS. L FOOT DRESSING NOTED CDI. VSS. WILL CONTINUE TO MONITOR.
[2018-01-08 04:00] VITALS: BP 114/63; PULSE 91; RESP 18; TEMP 36.9; O2SAT 97
--- NOTE | 2018-01-08 06:28 | PC.NURSE ---
ENCOURAGED USE OF INCENTIVE SPIROMETER WHILE AWAKE THIS SHIFT, PT VERBALIZES UNDERSTANDING OF HOW TO USE INCENTIVE SPIROMETER.
--- NOTE | 2018-01-08 07:17 | PC.NURSE ---
REPORT GIVEN TO Elke ALANIZ W/C
[2018-01-08 07:42] VITALS: BP 124/73; PULSE 93; RESP 18; TEMP 36.8; O2SAT 96
[2018-01-08 08:21] LABS: C-Reactive Protein 15.3 mg/L (0.0-0.9)
--- NOTE | 2018-01-08 08:33 | HMH.ACPN2 ---
Internal Medicine - PN: Subj *Date: 01/08/18 *Time: 08:33 Interval history: Patient has no complaints this morning. Pain in the left foot seems to be improving. Exam Vital signs and Labs for Last 24 Hours: Temp Pulse Resp BP Pulse Ox 98.2 F 93 H 18 124/73 96 01/08/18 07:42 01/08/18 07:42 01/08/18 07:42 01/08/18 07:42 01/08/18 07:42 Laboratory Results - last 24 hr 01/07/18 16:26: POC Glucose 285 01/07/18 22:05: Vancomycin Trough 14.4 01/08/18 08:00: C-Reactive Protein 15.3 H I & O for Last 24 hours: Intake & Output 01/05/18 01/06/18 01/07/18 01/08/18 11:59 11:59 11:59 11:59 Intake Total 2290 / 2290 1090 / 1090 Output Total 2775 / 2775 1500 / 1500 Balance -485 / -485 -410 / -410 Weight 240 lb 235 lb 3 oz 235 lb 3 oz Microbiology Reports for the Last 24 Hours: Microbiology 01/06/18 13:24 Toe,Left Great Gram Stain - Final 01/06/18 13:24 Toe,Left Great Wound Culture - Preliminary Kocuria kristinae 01/06/18 13:24 Foot,Left Gram Stain - Final 01/06/18 13:24 Foot,Left Surgical Biopsy Culture - Preliminary 01/06/18 13:24 Toe,Left Fifth Gram Stain - Final 01/06/18 13:24 Toe,Left Fifth Surgical Biopsy Culture - Preliminary NO GROWTH AFTER 24 HOURS 01/06/18 13:24 Foot,Left Gram Stain - Final 01/06/18 13:24 Foot,Left Surgical Biopsy Culture - Preliminary NO GROWTH AFTER 24 HOURS 01/06/18 13:24 Foot,Left Gram Stain - Final 01/06/18 13:24 Foot,Left Surgical Biopsy Culture - Preliminary NO GROWTH AFTER 24 HOURS 01/06/18 13:24 Foot,Left Gram Stain - Final 01/06/18 13:24 Foot,Left Surgical Biopsy Culture - Preliminary NO GROWTH AFTER 24 HOURS Narrative: Is awake and alert and in no distress. Lungs are clear. Heart has a regular rate and rhythm. Bandages intact on the left foot. Left great toe culture is positive for Kocuria with sensitivities pending Assessment and Plan (1) CAD (coronary artery disease) Current visit: No Status: Chronic Qualifiers: Coronary Disease-Associated Artery/Lesion type: [place] artery [place] vs. transplanted heart: [place] heart Associated angina: without angina Qualified Code(s): I25.10 - Atherosclerotic heart disease of [place] coronary artery without angina pectoris Category: Medical Code(s): I25.10 - Atherosclerotic heart disease of [place] coronary artery without angina pectoris (2) Diabetes mellitus Current visit: No Status: Chronic Qualifiers: Diabetes mellitus type: type 2 Diabetes mellitus snf insulin use: without terminal worker use Diabetes mellitus complication status: without complication Qualified Code(s): E11.9 - Type 2 diabetes mellitus without complications Category: Medical Code(s): E11.9 - Type 2 diabetes mellitus without complications (3) PAD (peripheral artery disease) Current visit: No Status: Chronic Category: Medical Code(s): I73.9 - Peripheral vascular disease, unspecified (4) Cellulitis Start date: 01/05/18 Start time: 08:00 Current visit: Yes Status: Acute Category: Medical Code(s): L03.90 - Cellulitis, unspecified (5) Osteomyelitis Start date: 12/28/17 Current visit: Yes Status: Acute Category: Medical Code(s): M86.9 - Osteomyelitis, unspecified (6) Necrotizing fasciitis Start date: 01/05/18 Current visit: Yes Status: Acute Category: Medical Code(s): M72.6 - Necrotizing fasciitis - Assessment and plan all Dx Assessment and Plan for all problems:: No change in medical care at this time
[2018-01-08 08:55] LABS: Erythrocyte Sedimentation Rate > 120 mm/hr (0-20)
[2018-01-08 09:45] VITALS: PULSE 93; RESP 18; O2SAT 96
--- NOTE | 2018-01-08 10:00 | HMH.ORTHPN ---
Subjective Date: 01/08/18 Time: 09:35 Principal diagnosis: Left foot cellulitis, necrotizing fasciitis Interval history: Mr. Hamm is a 77-year-old male who was admitted [facility] after left foot incision and drainage and transmetatarsal amputation. Patient states his appetite has returned and is feeling overall better. His pain has decreased and he has not had pain meds since last night. He also denies fever and chills, nausea and vomiting, shortness of breath and chest pain. Patient does report constipation, no bowel movement for several days. S/p left foot incision and drainage, transmetatarsal amputation POD # 2 PN: Obj Ex Vital signs: Temp Pulse Resp BP Pulse Ox 98.2 F 93 H 18 124/73 96 01/08/18 07:42 01/08/18 09:45 01/08/18 09:45 01/08/18 07:42 01/08/18 09:45 - Constitutional no acute distress - Detailed Lower Extremity Exam Foot/Toes: Left amputation (L TMA), Left swelling (non pitting), Left tenderness (lateral left amp site) Comments: The erythema extending to the distal leg has greatly improved and resolved on the leg. There is some nonpitting edema noted to the left foot. Sutures are intact. Small opening at the apex of the incision line has packing. Packing removed. No purulence or malodor noted. Decreased pain to palpation of the distal foot medially. No lymphangitis or palpable popliteal lymph nodes. No calf or thigh pain noted bilaterally. There is pain noted to the left lateral foot over where the 5th met. Two sutures moved. Wound explored with a sterile hemostat. Pain noted with palpation and squeezing. No purulence or drainage expressed. Skin color over this area is the same as the central and medial flap. No necrotic tissue noted. Progress Note: A&P (1) CAD (coronary artery disease) Status: Chronic Current Visit: No (2) Diabetes mellitus Status: Chronic Current Visit: No (3) PAD (peripheral artery disease) Status: Chronic Current Visit: No (4) Cellulitis Status: Acute Current Visit: Yes (5) Osteomyelitis Status: Acute Current Visit: Yes (6) Necrotizing fasciitis Status: Acute Current Visit: Yes Assessment and Plan for All Diagnoses:: S/p left foot incision and drainage, transmetatarsal amputation POD # 2 Intra-op wound culture, 3/7/18: Staphylococcus lugdunensis, Gram Positive Bacilli (resistant to Clinda, changed to po Cipro) Intra-op bone path (left hallux distal phalanx), 12/28/17: Acute and chronic osteomyelitis Office wound culture, 01/05/18: Koprasadria rhonaae Intra-op wound culture, 01/06/18: GPC ESR 01/07/18: >120 CRP 01/08/18: 15.3 (down from 17.9) The left foot dressing was removed today. Saline was used to clean the incision site and flushed the small opening at the apex of the incision. Wound explored no purulence or malodor noted. Infection looks to be much improved with decrease in pain medially. Edema and erythema improved. There is pain noted to the left lateral foot over where the 5th met. Two sutures moved. Wound explored with a sterile hemostat. Pain noted with palpation and squeezing. No purulence or drainage expressed. I am concerned with the pain directly localized over the fifth metatarsal. There is no evidence of new cellulitis or breakdown of skin. There is no purulence from the wound site. Patient reported feeling better after the suture was removed and it was re-flushed. Patient was given morphine for the dressing change. Quarter inch packing was soaked in Betadine and packed into the wound (3 suture sites). Betadine soaked 4 x 4, dry 4 x 4 and Kerlix was secured to the left foot. 1. Dr. Hernandez will do dressing change again tomorrow am 2. PICC in place, continue IV Abx (Vanco) 3. Await intra-op wound culture from 01/06/18 4. Intra-op bone cultures and path pending 5. NWB left foot, has post op shoe and walker at home 6. Elevate on pillow for pain and swelling 7. assisted plan: has PICC, IV Abx 6 weeks, jonah
--- NOTE | 2018-01-08 13:29 | HMH.PHACONS ---
- Pharmacy Consult Date: 01/08/18 Time: 13:29 Referring provider: DR. GAONA Reason for Consult:: VANCOMYCIN TROUGH LEVEL Allergies and ADEs:: Allergies Allergy/AdvReac Type Severity Reaction Status Date / Time Penicillins Allergy Severe S-BLISTERING Verified 01/05/18 13:48 WELTS Home Medications:: Home Medications Medication Instructions Recorded Confirmed Type aspirin 81 mg tablet,delayed 81 mg PO DAILY 10/25/17 01/07/18 History release celecoxib 200 mg capsule 200 mg PO BID cap 10/25/17 01/06/18 History etanercept 50 mg/mL (0.98 mL) 50 mg IV WEEKLY 10/25/17 01/06/18 History subcutaneous cartridge folic acid 1 mg tablet 1 mg PO DAILY 10/25/17 01/07/18 History furosemide 40 mg tablet 40 mg PO DAILY 10/25/17 01/07/18 History glipizide 10 mg tablet 10 mg PO DAILY 10/25/17 01/07/18 History insulin human U-100 NPH-regulr 15 unit SUB-Q QPMWM 10/25/17 01/06/18 History 70-30 mix 100 unit/mL subcutaneous susp melatonin 10 mg tablet 10 mg PO HS PRN 10/25/17 01/06/18 History metoprolol succinate ER 25 mg 25 mg PO BID tab 10/25/17 01/06/18 History tablet,extended release 24 hr omeprazole 20 mg tablet,delayed 20 mg PO DAILY tab 10/25/17 01/07/18 History release pioglitazone 30 mg tablet 30 mg PO DAILY 10/25/17 01/07/18 History valsartan 320 mg tablet 320 mg PO DAILY 10/25/17 01/07/18 History clopidogrel 75 mg tablet 75 mg PO DAILY 10/26/17 01/07/18 History atorvastatin 80 mg tablet 80 mg PO DAILY 10/31/17 01/07/18 History gabapentin 300 mg capsule 300 mg PO Q8H 10/31/17 01/06/18 History metformin 1,000 mg tablet 1,000 mg PO BID 10/31/17 01/06/18 History clindamycin HCl 300 mg capsule 300 mg PO BID 14 Days cap 12/27/17 01/07/18 History polyethylene glycol 3350 17 17 g PO DAILY g 01/05/18 01/07/18 History gram/dose oral powder Height: 1.83 m Weight: 106.679 kg Laboratory Results:: Laboratory Results - last 24 hr 01/07/18 16:26: POC Glucose 285 01/07/18 22:05: Vancomycin Trough 14.4 01/08/18 08:00: ESR > 120 H 01/08/18 08:00: C-Reactive Protein 15.3 H Medical History: Reports:: Coronary Artery Disease, Deep Vein Thrombosis, Diabetes Mellitus Type 2, Hyperlipidemia, Hypertension, Myocardial Infarction, Peripheral Artery Disease, Peripheral Vascular Disease Denies:: Asthma, Atrial Fibrillation, Cancer, Congestive Heart Failure, Chronic Obstructive Pulmonary Disease (COPD), Diabetes Mellitus Type 1, Gastroesophageal Reflux Disease(GERD), Gastrointestinal Bleed, Internal Pacemaker, Kidney Stones, MRSA, Osteoporosis, Pulmonary Embolism, Renal Disease, Seizures Assessment and Plan (1) CAD (coronary artery disease) Current visit: No Status: Chronic Qualifiers: Coronary Disease-Associated Artery/Lesion type: [place] artery [place] vs. transplanted heart: [place] heart Associated angina: without angina Qualified Code(s): I25.10 - Atherosclerotic heart disease of [place] coronary artery without angina pectoris Category: Medical Code(s): I25.10 - Atherosclerotic heart disease of [place] coronary artery without angina pectoris (2) Diabetes mellitus Current visit: No Status: Chronic Qualifiers: Diabetes mellitus type: type 2 Diabetes mellitus alf insulin use: without alf use Diabetes mellitus complication status: without complication Qualified Code(s): E11.9 - Type 2 diabetes mellitus without complications Category: Medical Code(s): E11.9 - Type 2 diabetes mellitus without complications (3) PAD (peripheral artery disease) Current visit: No Status: Chronic Category: Medical Code(s): I73.9 - Peripheral vascular disease, unspecified (4) Cellulitis Start date: 01/05/18 Start time: 08:00 Current visit: Yes Status: Acute Category: Medical Code(s): L03.90 - Cellulitis, unspecified (5) Osteomyelitis Start date: 12/28/17 Current visit: Yes Status: Acute Category: Medical Code(s): M86.9 - Osteomyelitis, unspecified (6) Ne
[2018-01-08 15:34] VITALS: BP 132/65; PULSE 83; RESP 18; TEMP 36.7; O2SAT 97
--- NOTE | 2018-01-08 17:58 | PC.NURSE ---
Dressing to LLE changed this am by Dr. Hernandez. Pt was medicated with prn pain meds before procedure and tolerated well. Pt tried to ambulate to the bathroom with a walker and assist x1 but stated his legs were too weak to make it there. Bedside commode was utilized instead. Family has been to visit. No complaints verbalized. Will continue to monitor.
[2018-01-08 20:00] VITALS: BP 144/63; PULSE 91; RESP 18; TEMP 36.9; O2SAT 94
[2018-01-09 01:50] LABS: POC Glucose,Bedside 261 mg/dL (70-110)
[2018-01-09 04:00] VITALS: BP 125/58; PULSE 87; RESP 18; TEMP 36.4; O2SAT 94
--- NOTE | 2018-01-09 04:22 | PC.PHONENOTE ---
C/O PAIN IN L FOOT, RATING IT A 5/10 ON 0-10 ESTIMATOR JEWELRY, DESCRIBES PAIN SHARP/SHOOTING THAT IS INTERMITTENT, MEDICATED PER MAR WITH PRN NORCO, ON REASSESSMENT PT NOTED SLEEPING. DRESSING ON L FOOT NOTED CDI. L FOOT ELEVATED ON PILLOWS THIS SHIFT. CONTACT PRECAUTIONS IN PLACE THIS SHIFT. PICC NOTED IN [place], PATENT WITH DRESSING CDI, NO S/S OF INFECTION NOTED. PT REPORTED LAST BOWEL MOVEMENT WAS MULTIPLE DAYS AGO, PT STATED I DO NOT HAVE ANY PAIN IN MY ABDOMEN BUT IT JUST FEELS FULL. PROVIDED PT WITH PRUNE JUICE, NO STOOL NOTED. ENCOURAGED USE OF INCENTIVE SPIROMETER EVERY HOUR WHILE AWAKE, PT VERBALIZED UNDERSTANDING AND REPORTED ABOUT EVERY HOUR USE OF INCENTIVE SPIROMETER. VSS. WILL CONTINUE TO MONITOR.
--- NOTE | 2018-01-09 07:17 | PC.NURSE ---
REPORT GIVEN TO Christine JOHNSON W/C
[2018-01-09 07:36] VITALS: BP 139/70; PULSE 90; RESP 18; TEMP 36.6; O2SAT 91
--- NOTE | 2018-01-09 07:54 | HMH.ORTHPN ---
Subjective Date: 01/05/18 Time: 08:00 Principal diagnosis: Left foot cellulitis, necrotizing fasciitis Interval history: Mr. Hamm is a 77-year-old male who was admitted [facility] after left foot incision and drainage and transmetatarsal amputation. Patient states his appetite has returned and is feeling overall better. His pain has decreased and he has not had pain meds since last night. He also denies fever and chills, nausea and vomiting, shortness of breath and chest pain. Patient does report constipation, no bowel movement for several days. S/p left foot incision and drainage, transmetatarsal amputation POD # 3 PN: Obj Ex Vital signs: Temp Pulse Resp BP Pulse Ox 97.8 F 90 18 139/70 91 L 01/09/18 07:36 01/09/18 07:36 01/09/18 07:36 01/09/18 07:36 01/09/18 07:36 Narrative: Denies N/V, F/C, SOB/CP. - Constitutional no acute distress - Detailed Lower Extremity Exam Foot/Toes: Left amputation (L TMA), Left erythema (improving), Left swelling (improving), Left tenderness (lateral left foot) Comments: The erythema extending to the distal leg has greatly improved and resolved on the leg. There is some nonpitting edema noted to the left foot. Sutures are intact (minus 3). Small opening at the apex medially, centrally and most lateral part of the incision line has packing. No purulence or malodor noted. Decreased pain to palpation of the distal foot medially. No lymphangitis or palpable popliteal lymph nodes. No calf or thigh pain noted bilaterally. There is less pain noted to the left lateral foot over where the 4-5th met. Mild pain noted with palpation and squeezing. No purulence or drainage expressed. Skin color over the central flap slightly dusky but no necrotic tissue noted. Overall looks stable with improved edema and erythema. Progress Note: A&P (1) CAD (coronary artery disease) Status: Chronic Current Visit: No (2) Diabetes mellitus Status: Chronic Current Visit: No (3) PAD (peripheral artery disease) Status: Chronic Current Visit: No (4) Cellulitis Start date: 01/05/18 Start time: 08:00 Status: Acute Assessment and plan: S/p left foot incision and drainage, transmetatarsal amputation POD # 3 Intra-op wound culture, 12/28/17: Staphylococcus lugdunensis, Gram Positive Bacilli (resistant to Clinda, changed to po Cipro in office) Intra-op bone path (left hallux distal phalanx), 12/28/17: Acute and chronic osteomyelitis Office wound culture, 01/05/18: Kocuria kristinae Intra-op wound culture, 01/06/18: Kocuria kristinae Intra-op 4th metatarsal bone culture, 01/06/18: GPC ESR 01/07/18: >120 CRP 01/08/18: 15.3 (down from 17.9) The left foot dressing was removed today. Saline was used to clean the incision site and flushed the 3 small openings at the medial apex, central and lateral side of the incision. Wound explored no purulence or malodor noted. There is still pain noted to the left lateral foot over the 4th-5th met, pain is less than yesterday. No purulence or drainage expressed. There is no evidence of new cellulitis or breakdown of skin. There is no purulence from the wound site. Patient was given morphine for the dressing change. Overall the left foot looks stable, with decreased pain, edema and erythema noted. Quarter inch packing was soaked in Betadine and packed into the wound (3 suture sites). Betadine soaked 4 x 4, dry 4 x 4 and Kerlix was secured to the left foot. 1. Dr. Hernandez will do dressing change tomorrow am 2. PICC in place, continue IV Abx (Vanco) 3. Await intra-op wound culture from 01/06/18 4. Intra-op bone cultures and path pending 5. NWB left foot, has post op shoe and walker at bedside 6. Elevate on pillow for pain and swelling 7. ferry terminal supervisor plan: has PICC, IV Abx 6 weeks, daily dressing changes with packing, weekly follow up outpt with me Current Visit: Yes (5) Osteomyelitis Status: Acute Current Visit: Yes (6) Necrotizing fasciitis S
--- NOTE | 2018-01-09 07:56 | HMH.ACPN ---
Internal Medicine - PN: Subj *Date: 01/09/18 *Time: 07:56 Interval history: No events overnight. He reports feeling well this morning, no pain prior to surgical dressing change. Rested well last night. Hasn't had a BM for some time, started miralax and prune juice yesterday. Exam Vital signs and Labs for Last 24 Hours: Temp Pulse Resp BP Pulse Ox 97.8 F 90 18 139/70 91 L 01/09/18 07:36 01/09/18 07:36 01/09/18 07:36 01/09/18 07:36 01/09/18 07:36 Laboratory Results - last 24 hr 01/08/18 08:00: ESR > 120 H 01/08/18 08:00: C-Reactive Protein 15.3 H 01/08/18 22:15: POC Glucose 261 I & O for Last 24 hours: Intake & Output 01/06/18 01/07/18 01/08/18 01/09/18 11:59 11:59 11:59 11:59 Intake Total 2290 / 2290 1090 / 1090 870 / 870 Output Total 2775 / 2775 1650 / 1650 1250 / 1250 Balance -485 / -485 -560 / -560 -380 / -380 Weight 240 lb 235 lb 3 oz 235 lb 3 oz 235 lb 3 oz Microbiology Reports for the Last 24 Hours: Microbiology 01/06/18 13:24 Foot,Left Gram Stain - Final 01/06/18 13:24 Foot,Left Surgical Biopsy Culture - Preliminary Gram Positive Cocci 01/06/18 13:24 Foot,Left Gram Stain - Final 01/06/18 13:24 Foot,Left Surgical Biopsy Culture - Preliminary 01/06/18 13:24 Toe,Left Fifth Gram Stain - Final 01/06/18 13:24 Toe,Left Fifth Surgical Biopsy Culture - Preliminary NO GROWTH AFTER 48 HOURS 01/06/18 13:24 Foot,Left Gram Stain - Final 01/06/18 13:24 Foot,Left Surgical Biopsy Culture - Preliminary NO GROWTH AFTER 48 HOURS 01/06/18 13:24 Foot,Left Gram Stain - Final 01/06/18 13:24 Foot,Left Surgical Biopsy Culture - Preliminary NO GROWTH AFTER 48 HOURS 01/06/18 13:24 Toe,Left Great Gram Stain - Final 01/06/18 13:24 Toe,Left Great Wound Culture - Preliminary Yumiko mercado Narrative: Pleasant male, upright on bedside eating breakfast. Heart with RRR, lungs are clear with good air movement. Abdomen is soft, NT/ND, BS present. He has no edema in the right lower extremity, surgical dressing intact on the left foot. Alert and oriented x3. Assessment and Plan (1) Osteomyelitis Start date: 12/28/17 Current visit: Yes Status: Acute Category: Medical Code(s): M86.9 - Osteomyelitis, unspecified (2) CAD (coronary artery disease) Current visit: No Status: Chronic Qualifiers: Qualified Code(s): I25.10 - Atherosclerotic heart disease of [place] coronary artery without angina pectoris Category: Medical Code(s): I25.10 - Atherosclerotic heart disease of [place] coronary artery without angina pectoris (3) Diabetes mellitus Current visit: No Status: Chronic Qualifiers: Qualified Code(s): E11.9 - Type 2 diabetes mellitus without complications Category: Medical Code(s): E11.9 - Type 2 diabetes mellitus without complications (4) PAD (peripheral artery disease) Current visit: No Status: Chronic Category: Medical Code(s): I73.9 - Peripheral vascular disease, unspecified (5) Cellulitis Start date: 01/05/18 Start time: 08:00 Current visit: Yes Status: Acute Category: Medical Code(s): L03.90 - Cellulitis, unspecified (6) Necrotizing fasciitis Start date: 01/05/18 Current visit: Yes Status: Acute Category: Medical Code(s): M72.6 - Necrotizing fasciitis - Assessment and plan all Dx Assessment and Plan for all problems:: No changes in plan today. Continue IV vancomycin, dressing changes per surgeon. Final culture with sensitivity is still pending.
--- NOTE | 2018-01-09 07:58 | P.PN_ITS ---
Subjective Date: 01/05/18 Time: 08:00 Principal diagnosis: Left foot cellulitis, necrotizing fasciitis Interval history: Mr. Hamm is a 77-year-old male who was admitted [facility] after left foot incision and drainage and transmetatarsal amputation. Patient states his appetite has returned and is feeling overall better. His pain has decreased and he has not had pain meds since last night. He also denies fever and chills , nausea and vomiting, shortness of breath and chest pain. Patient does report constipation, no bowel movement for several days. S/p left foot incision and drainage, transmetatarsal amputation POD # 3 PN: Obj Ex Vital signs: Temp Pulse Resp BP Pulse Ox 97.8 F 90 18 139/70 91 L 01/09/18 07:36 01/09/18 07:36 01/09/18 07:36 01/09/18 07:36 01/09/18 07:36 Narrative: Denies N/V, F/C, SOB/CP. - Constitutional no acute distress - Detailed Lower Extremity Exam Foot/Toes: Left amputation (L TMA), Left erythema (improving), Left swelling ( improving), Left tenderness (lateral left foot) Comments: The erythema extending to the distal leg has greatly improved and resolved on the leg. There is some nonpitting edema noted to the left foot. Sutures are intact (minus 3). Small opening at the apex medially, centrally and most lateral part of the incision line has packing. No purulence or malodor noted. Decreased pain to palpation of the distal foot medially. No lymphangitis or palpable popliteal lymph nodes. No calf or thigh pain noted bilaterally. There is less pain noted to the left lateral foot over where the 4-5th met. Mild pain noted with palpation and squeezing. No purulence or drainage expressed. Skin color over the central flap slightly dusky but no necrotic tissue noted. Overall looks stable with improved edema and erythema. Progress Note: A&P (1) CAD (coronary artery disease) Status: Chronic Current Visit: No (2) Diabetes mellitus Status: Chronic Current Visit: No (3) PAD (peripheral artery disease) Status: Chronic Current Visit: No (4) Cellulitis Start date: 01/05/18 Start time: 08:00 Status: Acute Assessment and plan: S/p left foot incision and drainage, transmetatarsal amputation POD # 3 Intra-op wound culture, 12/28/17: Staphylococcus lugdunensis, Gram Positive Bacilli (resistant to Clinda, changed to po Cipro in office) Intra-op bone path (left hallux distal phalanx), 12/28/17: Acute and chronic osteomyelitis Office wound culture, 01/05/18: Kocuria kristinae Intra-op wound culture, 01/06/18: Kocuria kristinae Intra-op 4th metatarsal bone culture, 01/06/18: GPC ESR 01/07/18: >120 CRP 01/08/18: 15.3 (down from 17.9) The left foot dressing was removed today. Saline was used to clean the incision site and flushed the 3 small openings at the medial apex, central and lateral side of the incision. Wound explored no purulence or malodor noted. There is still pain noted to the left lateral foot over the 4th-5th met, pain is less than yesterday. No purulence or drainage expressed. There is no evidence of new cellulitis or breakdown of skin. There is no purulence from the wound site. Patient was given morphine for the dressing change. Overall the left foot looks stable, with decreased pain, edema and erythema noted. Quarter inch packing was soaked in Betadine and packed into the wound (3 suture sites). Betadine soaked 4 x 4, dry 4 x 4 and Kerlix was secured to the left foot. 1. Dr. Hernandez will do dressing change tomorrow am 2. PICC in place, continue IV Abx (Vanco) 3. Await intra-op wound culture fr
--- NOTE | 2018-01-09 07:59 | P.PN_ITS ---
Internal Medicine - PN: Subj *Date: 01/09/18 *Time: 07:56 Interval history: No events overnight. He reports feeling well this morning, no pain prior to surgical dressing change. Rested well last night. Hasn't had a BM for some time , started miralax and prune juice yesterday. Exam Vital signs and Labs for Last 24 Hours: Temp Pulse Resp BP Pulse Ox 97.8 F 90 18 139/70 91 L 01/09/18 07:36 01/09/18 07:36 01/09/18 07:36 01/09/18 07:36 01/09/18 07:36 Laboratory Results - last 24 hr 01/08/18 08:00: ESR > 120 H 01/08/18 08:00: C-Reactive Protein 15.3 H 01/08/18 22:15: POC Glucose 261 I & O for Last 24 hours: Intake & Output 01/06/18 01/07/18 01/08/18 01/09/18 11:59 11:59 11:59 11:59 Intake Total 2290 / 2290 1090 / 1090 870 / 870 Output Total 2775 / 2775 1650 / 1650 1250 / 1250 Balance -485 / -485 -560 / -560 -380 / -380 Weight 240 lb 235 lb 3 oz 235 lb 3 oz 235 lb 3 oz Microbiology Reports for the Last 24 Hours: Microbiology 01/06/18 13:24 Foot,Left Gram Stain - Final 01/06/18 13:24 Foot,Left Surgical Biopsy Culture - Preliminary Gram Positive Cocci 01/06/18 13:24 Foot,Left Gram Stain - Final 01/06/18 13:24 Foot,Left Surgical Biopsy Culture - Preliminary 01/06/18 13:24 Toe,Left Fifth Gram Stain - Final 01/06/18 13:24 Toe,Left Fifth Surgical Biopsy Culture - Preliminary NO GROWTH AFTER 48 HOURS 01/06/18 13:24 Foot,Left Gram Stain - Final 01/06/18 13:24 Foot,Left Surgical Biopsy Culture - Preliminary NO GROWTH AFTER 48 HOURS 01/06/18 13:24 Foot,Left Gram Stain - Final 01/06/18 13:24 Foot,Left Surgical Biopsy Culture - Preliminary NO GROWTH AFTER 48 HOURS 01/06/18 13:24 Toe,Left Great Gram Stain - Final 01/06/18 13:24 Toe,Left Great Wound Culture - Preliminary Yumiko mercado Narrative: Pleasant male, upright on bedside eating breakfast. Heart with RRR, lungs are clear with good air movement. Abdomen is soft, NT/ND, BS present. He has no edema in the right lower extremity, surgical dressing intact on the left foot. Alert and oriented x3. Assessment and Plan (1) Osteomyelitis Start date: 12/28/17 Current visit: Yes Status: Acute Category: Medical Code(s): M86.9 - Osteomyelitis, unspecified (2) CAD (coronary artery disease) Current visit: No Status: Chronic Qualifiers: Qualified Code(s): I25.10 - Atherosclerotic heart disease of [place] coronary artery without angina pectoris Category: Medical Code(s): I25.10 - Atherosclerotic heart disease of [place] coronary artery without angina pectoris (3) Diabetes mellitus Current visit: No Status: Chronic Qualifiers: Qualified Code(s): E11.9 - Type 2 diabetes mellitus without complications Category: Medical Code(s): E11.9 - Type 2 diabetes mellitus without complications (4) PAD (peripheral artery disease) Current visit: No Status: Chronic Category: Medical Code(s): I73.9 - Peripheral vascular disease, unspecified (5) Cellulitis Start date: 01/05/18 Start time: 08:00 Current visit: Yes Status: Acute Category: Medical Code(s): L03.90 - Cellulitis, unspecified (6) Necrotizing fasciitis Start date: 01/05/18 Current visit: Yes Status: Acute Category: Medical Code(s): M72.6 - Necrotizing fasciitis - [place]
--- NOTE | 2018-01-09 09:22 | HMH.ACPN ---
Internal Medicine - PN: Subj *Date: 01/09/18 *Time: 09:22 Exam Vital signs and Labs for Last 24 Hours: Temp Pulse Resp BP Pulse Ox 97.8 F 90 18 139/70 91 L 01/09/18 07:36 01/09/18 07:36 01/09/18 07:36 01/09/18 07:36 01/09/18 07:36 Laboratory Results - last 24 hr 01/08/18 22:15: POC Glucose 261 I & O for Last 24 hours: Intake & Output 01/06/18 01/07/18 01/08/18 01/09/18 23:59 23:59 23:59 23:59 Intake Total 1330 / 1330 1690 / 1690 960 / 960 520 / 520 Output Total 675 / 675 2500 / 2500 2150 / 2150 350 / 350 Balance 655 / 655 -810 / -810 -1190 / -1190 170 / 170 Weight 106.679 kg 106.679 kg 106.679 kg Microbiology Reports for the Last 24 Hours: Microbiology 01/06/18 13:24 Toe,Left Great Gram Stain - Final 01/06/18 13:24 Toe,Left Great Wound Culture - Preliminary Gram Positive Bacilli 01/06/18 13:24 Foot,Left Gram Stain - Final 01/06/18 13:24 Foot,Left Surgical Biopsy Culture - Preliminary Gram Positive Cocci 01/06/18 13:24 Foot,Left Gram Stain - Final 01/06/18 13:24 Foot,Left Surgical Biopsy Culture - Preliminary 01/06/18 13:24 Toe,Left Fifth Gram Stain - Final 01/06/18 13:24 Toe,Left Fifth Surgical Biopsy Culture - Preliminary NO GROWTH AFTER 48 HOURS 01/06/18 13:24 Foot,Left Gram Stain - Final 01/06/18 13:24 Foot,Left Surgical Biopsy Culture - Preliminary NO GROWTH AFTER 48 HOURS 01/06/18 13:24 Foot,Left Gram Stain - Final 01/06/18 13:24 Foot,Left Surgical Biopsy Culture - Preliminary NO GROWTH AFTER 48 HOURS Assessment and Plan (1) Osteomyelitis Start date: 12/28/17 Current visit: Yes Status: Acute Category: Medical Code(s): M86.9 - Osteomyelitis, unspecified (2) CAD (coronary artery disease) Current visit: No Status: Chronic Qualifiers: Coronary Disease-Associated Artery/Lesion type: [place] artery [place] vs. transplanted heart: [place] heart Associated angina: without angina Qualified Code(s): I25.10 - Atherosclerotic heart disease of [place] coronary artery without angina pectoris Category: Medical Code(s): I25.10 - Atherosclerotic heart disease of [place] coronary artery without angina pectoris (3) Diabetes mellitus Current visit: No Status: Chronic Qualifiers: Diabetes mellitus type: type 2 Diabetes mellitus extermination inspector insulin use: without shelter use Diabetes mellitus complication status: without complication Qualified Code(s): E11.9 - Type 2 diabetes mellitus without complications Category: Medical Code(s): E11.9 - Type 2 diabetes mellitus without complications (4) PAD (peripheral artery disease) Current visit: No Status: Chronic Category: Medical Code(s): I73.9 - Peripheral vascular disease, unspecified (5) Cellulitis Start date: 01/05/18 Start time: 08:00 Current visit: Yes Status: Acute Category: Medical Code(s): L03.90 - Cellulitis, unspecified (6) Necrotizing fasciitis Start date: 01/05/18 Current visit: Yes Status: Acute Category: Medical Code(s): M72.6 - Necrotizing fasciitis The patient's infection will respond to the chosen ABx?: Yes Is the patient receiving the right drug, dose, and route?: Yes Could a more targeted ABx be ordered?: No
[2018-01-09 13:54] VITALS: BMI 31.8
[2018-01-09 15:46] VITALS: BP 141/58; PULSE 87; RESP 18; TEMP 36.5; O2SAT 98
--- NOTE | 2018-01-09 16:34 | SW/DCPLANNER ---
SENT REFERRAL FOR IV ANTIBIOTICS FOR THE PATIENT LISTED ABOVE...I SENT REFERRAL TO [facility] AND ASKED FOR THEM TO DO A COST REPORT AND GAVE IT TO THE PATIENT... HE WAS OK PAYING THE $75 PER WEEK FOR HIS MEDICINE AND IF HOME [facility]ALTH DOESN'T PAY FOR THE FLUSHES HE REALIZES HE MAY BE RESPONSIBLE FOR THEM ALSO....HE CHOSE [facility] HIS PROVIDER AND ONCE THE ORDER HAS BEEN OBTAINED AND WE KNOW EXACTLY WHAT THE CULTURE SHOWS I WILL MAKE CONTACT WITH THEM AND SET THIS UP FOR HIM TO RECEIVE HIS ANTIBIOTIC AT HOME... PLANNED DISCHARGE IS FOR TU PENDING WE GET THE CULTURE BACK...
--- NOTE | 2018-01-09 19:11 | PC.NURSE ---
report given to chula hadley
[2018-01-09 20:00] VITALS: BP 117/44; PULSE 84; RESP 18; TEMP 36.6; O2SAT 96
[2018-01-10 02:19] LABS: POC Glucose,Bedside 277 mg/dL (70-110)
--- NOTE | 2018-01-10 02:47 | PC.NURSE ---
PT IS PLEASANT AND TALKATIVE, ALERT AND ORIENTED X 3. S/P LT TOE AMPUTATIONS. DRG C/D/I. NO DRAINAGE NOTED. DENIES PAIN OR DISCOMFORT. PT WAS UP WITH WALKER AND BOOT TO AMBULATE YESTERDAY, NOT BEEN UP THUS FAR THIS SHIFT. PT HAS PICC IN LT UPPER ARM, NO REDNESS OR EDEMA NOTED AROUND SITE, DRG C/D/I. LYING IN BED RESTING, CALL LIGHT WITHIN REACH, WILL CONTINUE TO MONITOR.
--- NOTE | 2018-01-10 03:02 | PC.NURSE ---
NO STOOL REPORTED THIS SHIFT BUT PT DOES REPORT PASSING FLATUS OFTEN, PT STATES I FEEL LIKE, THAT IS IMPROVEMENT AND I MAY HAVE A BM SOON.
[2018-01-10 04:00] VITALS: BP 108/54; PULSE 86; RESP 18; TEMP 36.8; O2SAT 92
[2018-01-10 07:40] LABS: Basophils # 0.1 K/mm3 (0-0.2); Basophils % 0.6 % (0.1-2.0); Eosinophils # 0.8 K/mm3 (0.0-0.4); Eosinophils % 5.7 % (0.1-12.0); Hematocrit 35.9 % (42.0-52.0); Hemoglobin 11.3 g/dL (14.1-18.0); Lymphocytes # 1.5 K/mm3 (0.7-4.5); Lymphocytes % 10.4 K/mm3 (10-50); Mean Corpuscular HGB Conc 31.6 g/dL (31.8-35.4); Mean Corpuscular Hemoglobin 33.3 pg (27.0-31.2); Mean Corpuscular Volume 105.3 fl (80-94); Mean Platelet Volume 8.1 fl (7.4-10.4); Monocytes # 0.8 K/mm3 (0.1-1.0); Monocytes % 5.4 % (1.7-9.3); Neutrophils # 11.5 K/mm3 (1.8-7.8); Neutrophils % 77.9 % (37.0-80.0); Platelet Count 663 K/mm3 (142-424); Red Blood Count 3.41 M/mm3 (4.60-6.20); Red Cell Distribution Width 14.2 % (11.5-17.5); White Blood Count 14.7 K/mm3 (4.8-10.8)
[2018-01-10 07:46] LABS: Anion Gap 10.8 mEq/L (5-15); Blood Urea Nitrogen 12 mg/dL (7-18); Carbon Dioxide 30 mmol/L (21.0-32.0); Chloride 99 mmol/L (98-107); Creatinine Clearance Estimated 95 mL/min (0-300); Creatinine,Serum 0.87 mg/dL (0.70-1.30); Estimated Glomerular Filt Rate 85 ml/min (>60); GFR (African American) 103 ML/MIN (>60); Glucose 291 mg/dL (74-106); Potassium 4.8 mmoL/L (3.5-5.1); Sodium 135 mmol/L (136-145)
[2018-01-10 07:47] VITALS: BP 97/31; PULSE 83; RESP 18; TEMP 36.6; O2SAT 95
--- NOTE | 2018-01-10 08:33 | HMH.DCSUM ---
General - General Admission date: 01/07/18 Discharge date: 01/10/18 HPI HPI: 77-year-old white male who suffers from diabetes, coronary disease, and rheumatoid arthritis who has been following with podiatry here over the past week for foot infection. Wound culture showed Staphylococcus that was amenable to outpatient clindamycin but examination of his wound showed significant progression over the past 48 hours and was brought to the OR this morning for metatarsal amputation which was accomplished. Please see surgical note. Given the seriousness of the infection, his comorbid conditions and low-grade temperatures and elevated white count it was felt he would require IV antibiotics to forestall further infection or the development of bloodstream infection. The patient himself now feels good, denies breathing or GI effects. Has no foot in the pain at this point. Podiatry surgical notes reviewed. Hospital Course Hospital Course: Patient was admitted for IV antibiotics and wound care. Dr. Hernandez has performed daily irrigations to left foot wound with dressing changes. He has had significant improvement of erythema and swelling. Pain has resolved. Left 4th metatarsal culture was positive for staph epidermidis which was sensitive to vancomycin. PICC line was placed and placement was confirmed. Patient was able to ambulate with therapy without gait instability or pain. He feels well and is ready to go home. Discharge home with home health for Vancomycin 2 grams IVPB every 24 hours x 6 weeks. Vanco trough per protocol. Daily dressings changes per Dr. Hernandez's recommendations. FU with Dr. Hernandez in 6 days. Objective Vital signs: Temp Pulse Resp BP Pulse Ox 97.9 F 83 18 97/31 95 01/10/18 07:47 01/10/18 07:47 01/10/18 07:47 01/10/18 07:47 01/10/18 07:47 Narrative: Alert and oriented x3. Rate and rhythm regular. Left foot wound without drainage or odor, erythema resolving. 1-2+ left foot edema. Abdomen soft and nontender. Normoactive bowel sound Results Labs on day of discharge: Labs from last 24 hours 01/10/18 01/10/18 01/09/18 07:20 07:20 22:12 WBC 14.7 H RBC 3.41 L Hgb 11.3 L Hct 35.9 L MCV 105.3 H MCH 33.3 H MCHC 31.6 L RDW 14.2 Plt Count 663 H MPV 8.1 Neut % (Auto) 77.9 Lymph % (Auto) 10.4 [place] % (Auto) 5.4 Eos % (Auto) 5.7 Baso % (Auto) 0.6 Neut # (Auto) 11.5 H Lymph # (Auto) 1.5 [place] # (Auto) 0.8 Eos # (Auto) 0.8 H Baso # (Auto) 0.1 Sodium 135 L Potassium 4.8 Chloride 99 Carbon Dioxide 30 Anion Gap 10.8 BUN 12 Creatinine 0.87 Estimated Creat Clear 95 Estimated GFR 85 Est GFR ( Amer) 103 Glucose 291 H POC Glucose 277 Preliminary micro results at discharge 01/06/18 13:24 Surgical Biopsy Culture - Preliminary Foot,Left 01/06/18 13:24 Surgical Biopsy Culture - Preliminary Toe,Left Fifth NO GROWTH AFTER 72 HOURS 01/06/18 13:24 Surgical Biopsy Culture - Preliminary Foot,Left NO GROWTH AFTER 72 HOURS 01/06/18 13:24 Surgical Biopsy Culture - Preliminary Foot,Left NO GROWTH AFTER 72 HOURS Discharge Plan - Patient Discharge Instructions ACTIVITY: Continue current activity DIET: continue same diet - Follow up Plan Disposition: Home Health Service Home Medications: Home Medications Medication Instructions Recorded Confirmed Type aspirin 81 mg tablet,delayed 81 mg PO DAILY 10/25/17 01/07/18 History release celecoxib 200 mg capsule 200 mg PO BID cap 10/25/17 01/06/18 History etanercept 50 mg/mL (0.98 mL) 50 mg IV WEEKLY 10/25/17 01/06/18 History subcutaneous cartridge folic acid 1 mg tablet 1 mg PO DAILY 10/25/17 01/07/18 History furosemide 40 mg tablet 40 mg PO DAILY 10/25/17 01/07/18 History glipizide 10 mg tablet 10 mg PO DAILY 10/25/17 01/07/18 History insulin human U-100 NPH-regulr 15 unit SUB-Q QPMWM 10/25/17 01/06/18 H
--- NOTE | 2018-01-10 08:37 | P.DS_ITS ---
General - General Admission date: 01/07/18 Discharge date: 01/10/18 HPI HPI: 77-year-old white male who suffers from diabetes, coronary disease, and rheumatoid arthritis who has been following with podiatry here over the past week for foot infection. Wound culture showed Staphylococcus that was amenable to outpatient clindamycin but examination of his wound showed significant progression over the past 48 hours and was brought to the OR this morning for metatarsal amputation which was accomplished. Please see surgical note. Given the seriousness of the infection, his comorbid conditions and low-grade temperatures and elevated white count it was felt he would require IV antibiotics to forestall further infection or the development of bloodstream infection. The patient himself now feels good, denies breathing or GI effects. Has no foot in the pain at this point. Podiatry surgical notes reviewed. Hospital Course Hospital Course: Patient was admitted for IV antibiotics and wound care. Dr. Hernandez has performed daily irrigations to left foot wound with dressing changes. He has had significant improvement of erythema and swelling. Pain has resolved. Left 4th metatarsal culture was positive for staph epidermidis which was sensitive to vancomycin. PICC line was placed and placement was confirmed. Patient was able to ambulate with therapy without gait instability or pain. He feels well and is ready to go home. Discharge home with home health for Vancomycin 2 grams IVPB every 24 hours x 6 weeks. Vanco trough per protocol. Daily dressings changes per Dr. Hernandez's recommendations. FU with Dr. Hernandez in 6 days. Objective Vital signs: Temp Pulse Resp BP Pulse Ox 97.9 F 83 18 97/31 95 01/10/18 07:47 01/10/18 07:47 01/10/18 07:47 01/10/18 07:47 01/10/18 07:47 Narrative: Alert and oriented x3. Rate and rhythm regular. Left foot wound without drainage or odor, erythema resolving. 1-2+ left foot edema. Abdomen soft and nontender. Normoactive bowel sound Results Labs on day of discharge: Labs from last 24 hours 01/10/18 01/10/18 01/09/18 07:20 07:20 22:12 WBC 14.7 H RBC 3.41 L Hgb 11.3 L Hct 35.9 L MCV 105.3 H MCH 33.3 H MCHC 31.6 L RDW 14.2 Plt Count 663 H MPV 8.1 Neut % (Auto) 77.9 Lymph % (Auto) 10.4 [place] % (Auto) 5.4 Eos % (Auto) 5.7 Baso % (Auto) 0.6 Neut # (Auto) 11.5 H Lymph # (Auto) 1.5 [place] # (Auto) 0.8 Eos # (Auto) 0.8 H Baso # (Auto) 0.1 Sodium 135 L Potassium 4.8 Chloride 99 Carbon Dioxide 30 Anion Gap 10.8 BUN 12 Creatinine 0.87 Estimated Creat Clear 95 Estimated GFR 85 Est GFR ( Amer) 103 Glucose 291 H POC Glucose 277 Preliminary micro results at discharge 01/06/18 13:24 Surgical Biopsy Culture - Preliminary Foot,Left 01/06/18 13:24 Surgical Biopsy Culture - Preliminary Toe,Left Fifth NO GROWTH AFTER 72 HOURS 01/06/18 13:24 Surgical Biopsy Culture - Preliminary Foot,Left NO GROWTH AFTER 72 HOURS 01/06/18 13:24 Surgical Biopsy Culture - Preliminary Foot,Left NO GROWTH AFTER 72 HOURS
--- NOTE | 2018-01-10 09:02 | HMH.ORTHPN ---
Subjective Date: 01/10/18 Time: 07:50 Principal diagnosis: Left foot cellulitis, necrotizing fasciitis Interval history: Mr. Hamm is a 77-year-old male who was admitted [facility] after left foot incision and drainage and transmetatarsal amputation. Patient denies pain. He also denies fever and chills, nausea and vomiting, shortness of breath and chest pain. S/p left foot incision and drainage, transmetatarsal amputation POD # 4 PN: Obj Ex Vital signs: Temp Pulse Resp BP Pulse Ox 97.9 F 83 18 97/31 95 01/10/18 07:47 01/10/18 07:47 01/10/18 07:47 01/10/18 07:47 01/10/18 07:47 - Constitutional no acute distress - Detailed Lower Extremity Exam Foot/Toes: Left amputation (L TMA), Left erythema (localized to incision site), Left swelling (distal left foot), Left tenderness (resolved) Comments: The erythema extending to the distal leg has greatly resolved and is localized to the left foot TMA incision site. There is some nonpitting edema noted to the left foot. Sutures are intact (minus 3). Small opening at the apex medially, centrally and most lateral part of the incision line has packing. No purulence or malodor noted. Minimal pain to palpation of the distal foot medially. No lymphangitis or palpable popliteal lymph nodes. No calf or thigh pain noted bilaterally. There is no pain noted to the left lateral foot over where the 4-5th met. Minimal pain noted with palpation and squeezing. No purulence or drainage expressed. Skin color over the central flap slightly dusky. Overall looks stable with improved edema, erythema and pain. Progress Note: A&P (1) Cellulitis Start date: 01/05/18 Start time: 08:00 Status: Acute Assessment and plan: S/p left foot incision and drainage, transmetatarsal amputation POD # 4 Intra-op wound culture, 12/28/17: Staphylococcus lugdunensis, Gram Positive Bacilli (resistant to Clinda, changed to po Cipro in office) Intra-op bone path (left hallux distal phalanx), 18: Acute and chronic osteomyelitis Office wound culture, 01/05/18: Kocuria kristinae Intra-op wound culture, 01/06/18: Kocuria rhonaae Intra-op 4th metatarsal bone culture, 01/06/18: Staph epidermidis ESR 01/07/18: >120 CRP 01/08/18: 15.3 (down from 17.9) The left foot dressing was removed today. Saline was used to clean the incision site and flushed the 3 small openings at the medial apex, central and lateral side of the incision. Wound explored no purulence or malodor noted. There is minimal pain noted to the left lateral foot over the 4th-5th met, pain is less than yesterday. If not squeezing, no pain. No purulence or drainage expressed. There is no evidence of new cellulitis or breakdown of skin. Central incision is slightly dusky. Overall the left foot looks stable, with decreased pain, edema and erythema noted. Wound flushed with saline. Betadine packing inserted. Betadine DSD applied (see below for specifics). 1. PICC in place, continue IV Abx (Vanco) 2. Awaiting final intra-op bone cultures and path pending 3. NWB left foot, has post op shoe and walker at bedside. Had a long discussion with the patient bedside about compliance and not being FWB due to the potential of the incision opening. Must be NWB in post op shoe with walker. 4. Elevate on pillow for pain and swelling 5. buttermaker helper plan: has PICC, IV Abx x 6 weeks, daily dressing changes with packing, weekly follow up outpt with co Tuesday01/16/18 Dressing change orders: Flush wound with normal saline via the 3 open suture sites (medial, central, lateral). Cleanse skin with betadine after the saline flush. Quarter inch packing was soaked in Betadine and packed into the wound (3 suture sites). Betadine soaked 4 x 4, dry 4 x 4 and Kerlix was applied to the left foot, secure with tape. Current Visit: Yes (2) Necrotizing fasciitis Status: Acute Current Visit: Yes
[2018-01-10 09:30] VITALS: BP 123/60
[2018-01-10 09:34] LABS: Vancomycin,Trough 19.7 mcg/ml (10.0-20.0)
--- NOTE | 2018-01-10 09:58 | HMH.PHACONS ---
- Pharmacy Consult Date: 01/10/18 Time: 10:00 Referring provider: DR. GAONA/DENZEL Reason for Consult:: VANCOMYCIN TROUGH LEVEL Allergies and ADEs:: Allergies Allergy/AdvReac Type Severity Reaction Status Date / Time Penicillins Allergy Severe S-BLISTERING Verified 01/05/18 13:48 WELTS Home Medications:: Home Medications Medication Instructions Recorded Confirmed Type aspirin 81 mg tablet,delayed 81 mg PO DAILY 10/25/17 01/07/18 History release celecoxib 200 mg capsule 200 mg PO BID cap 10/25/17 01/06/18 History etanercept 50 mg/mL (0.98 mL) 50 mg IV WEEKLY 10/25/17 01/06/18 History subcutaneous cartridge folic acid 1 mg tablet 1 mg PO DAILY 10/25/17 01/07/18 History furosemide 40 mg tablet 40 mg PO DAILY 10/25/17 01/07/18 History glipizide 10 mg tablet 10 mg PO DAILY 10/25/17 01/07/18 History insulin human U-100 NPH-regulr 15 unit SUB-Q QPMWM 10/25/17 01/06/18 History 70-30 mix 100 unit/mL subcutaneous susp melatonin 10 mg tablet 10 mg PO HS PRN 10/25/17 01/06/18 History metoprolol succinate ER 25 mg 25 mg PO BID tab 10/25/17 01/06/18 History tablet,extended release 24 hr omeprazole 20 mg tablet,delayed 20 mg PO DAILY tab 10/25/17 01/07/18 History release pioglitazone 30 mg tablet 30 mg PO DAILY 10/25/17 01/07/18 History valsartan 320 mg tablet 320 mg PO DAILY 10/25/17 01/07/18 History clopidogrel 75 mg tablet 75 mg PO DAILY 10/26/17 01/07/18 History atorvastatin 80 mg tablet 80 mg PO DAILY 10/31/17 01/07/18 History gabapentin 300 mg capsule 300 mg PO Q8H 10/31/17 01/06/18 History metformin 1,000 mg tablet 1,000 mg PO BID 10/31/17 01/06/18 History clindamycin HCl 300 mg capsule 300 mg PO BID 14 Days cap 12/27/17 01/07/18 History polyethylene glycol 3350 17 17 g PO DAILY g 01/05/18 01/07/18 History gram/dose oral powder Height: 1.83 m Weight: 106.679 kg Laboratory Results:: Laboratory Results - last 24 hr 01/09/18 22:12: POC Glucose 277 01/10/18 07:20: WBC 14.7 H, RBC 3.41 L, Hgb 11.3 L, Hct 35.9 L, MCV 105.3 H, MCH 33.3 H, MCHC 31.6 L, RDW 14.2, Plt Count 663 H, MPV 8.1, Neut % (Auto) 77.9, Lymph % (Auto) 10.4, [place] % (Auto) 5.4, Eos % (Auto) 5.7, Baso % (Auto) 0.6, Neut # (Auto) 11.5 H, Lymph # (Auto) 1.5, [place] # (Auto) 0.8, Eos # (Auto) 0.8 H, Baso # (Auto) 0.1 01/10/18 07:20: Sodium 135 L, Potassium 4.8, Chloride 99, Carbon Dioxide 30, Anion Gap 10.8, BUN 12, Creatinine 0.87, Estimated Creat Clear 95, Estimated GFR 85, Est GFR ( Amer) 103, Glucose 291 H 01/10/18 09:00: Vancomycin Trough 19.7 Medical History: Reports:: Coronary Artery Disease, Deep Vein Thrombosis, Diabetes Mellitus Type 2, Hyperlipidemia, Hypertension, Myocardial Infarction, Peripheral Artery Disease, Peripheral Vascular Disease Denies:: Asthma, Atrial Fibrillation, Cancer, Congestive Heart Failure, Chronic Obstructive Pulmonary Disease (COPD), Diabetes Mellitus Type 1, Gastroesophageal Reflux Disease(GERD), Gastrointestinal Bleed, Internal Pacemaker, Kidney Stones, MRSA, Osteoporosis, Pulmonary Embolism, Renal Disease, Seizures Assessment and Plan (1) Cellulitis Start date: 01/05/18 Start time: 08:00 Current visit: Yes Status: Acute Category: Medical Code(s): L03.90 - Cellulitis, unspecified (2) Necrotizing fasciitis Start date: 01/05/18 Current visit: Yes Status: Acute Category: Medical Code(s): M72.6 - Necrotizing fasciitis - Assessment and plan all Dx Assessment and Plan for all problems:: BASED ON VANCOMYCIN TROUGH LEVEL, RECOMMEND CHANGING DOSE AND INTERVAL TO VANCOMYCIN 2 GM IV Q24H. PATIENT WILL HAVE FIRST DOSE THIS MORNING AND WILL BE DISCHARGED. PATIENT WILL CONTINUE VANCOMYCIN 2GM IV Q24H WITH HOME HEALTH.
--- NOTE | 2018-01-10 14:20 | SW/DCPLANNER ---
Patient information has been faxed to [facility] for patient to have IV Vanc 2 Grams every 24 hours x 6 weeks. Andria from [employer] approved this yesterday and patient was fine with co-pay. Patient information has also been faxed to [facility] for administration of IV antibiotic and wound care. Dressing change orders: Flush wound with normal saline via the 3 open suture sites (medial, central, lateral). Cleanse skin with betadine after the saline flush. Quarter inch packing was soaked in Betadine and packed into the wound (3 suture sites). Betadine soaked 4 x 4, dry 4 x 4 and Kerlix was applied to the left foot, secure with tape per Dr Hernandez. I will follow up once Kaylen at [facility] receives patient information and can accept/decline this patient. Patient will need dose of Vanc at 10AM tomorrow.
== END 2018-01-10 12:50 | disposition home health service (06) | DRG 474 ==
LOC: 2ND 09:59
PROVIDERS: Nurse Practitioner Family; Podiatrist; Admitting Provider Internal Medicine Adolescent Medicine; Family Provider Internal Medicine; PCP Internal Medicine; Visit Provider Internal Medicine Adolescent Medicine
PROC: 0Y6N0Z9 Detachment at Left Foot, Partial 1st Ray, Open Approach (ICD-10-PCS; CPT 28800; principal; 2018-01-06 10:45)
DX: M72.6 Necrotizing fasciitis (principal); A48.0 Gas gangrene; E11.52 Type 2 diabetes mellitus with diabetic peripheral angiopathy with gangrene; I45.10 Unspecified right bundle-branch block; M86.9 Osteomyelitis, unspecified; I10 Essential (primary) hypertension; I25.10 Atherosclerotic heart disease of native coronary artery without angina pectoris; I70.292 Other atherosclerosis of native arteries of extremities, left leg; Z87.891 Personal history of nicotine dependence; Z79.4 Long term (current) use of insulin; M06.9 Rheumatoid arthritis, unspecified; K59.00 Constipation, unspecified; Z86.718 Personal history of other venous thrombosis and embolism; Z95.828 Presence of other vascular implants and grafts
CPT/HCPCS: 28800; 36415; 71045; 73620; 73630; 76000; 80048; 80053; 80202; 82962; 85025; 85651; 86140; 87070; 87077; 87186; 87205; 88305; 88307; 88311; 96374; C1751; J2405; J3370

== ENCOUNTER → 2018-01-23 17:10 | Outpatient (REF) | payer MEDICARE, SELFPAY | LOC: LAB 17:10 | PROVIDERS: Visit Provider Podiatrist | DX: Z98.890 Other specified postprocedural states (principal) | CPT/HCPCS: 87070; 87205 ==

== ENCOUNTER 2018-02-07 11:30 | Outpatient (CLI) | payer MEDICARE, SELFPAY ==
[2018-02-07 11:45] VITALS: BP 122/68; PULSE 68; RESP 20; TEMP 36.9; O2SAT 96
[2018-02-07 12:30] VITALS: BP 122/78; PULSE 68; RESP 20; TEMP 36.9; O2SAT 96; BMI 31.1
[2018-02-07 13:04] LABS: Blood Urea Nitrogen 18 mg/dL (7-18); Carbon Dioxide 29 mmol/L (21.0-32.0); Chloride 102 mmol/L (98-107); Creatinine Clearance Estimated 92 mL/min (0-300); Creatinine,Serum 1.01 mg/dL (0.70-1.30); Estimated Glomerular Filt Rate 72 ml/min (>60); GFR (African American) 87 ML/MIN (>60); Glucose 161 mg/dL (74-106); Sodium 139 mmol/L (136-145); Vancomycin,Trough 13.3 mcg/ml (10.0-20.0)
[2018-02-07 13:13] LABS: Basophils # 0.1 K/mm3 (0-0.2); Basophils % 0.7 % (0.1-2.0); Eosinophils # 1.3 K/mm3 (0.0-0.4); Eosinophils % 11.4 % (0.1-12.0); Hematocrit 35.7 % (42.0-52.0); Hemoglobin 11.3 g/dL (14.1-18.0); Lymphocytes # 1.6 K/mm3 (0.7-4.5); Lymphocytes % 14.6 K/mm3 (10-50); Mean Corpuscular HGB Conc 31.5 g/dL (31.8-35.4); Mean Corpuscular Hemoglobin 33.5 pg (27.0-31.2); Mean Corpuscular Volume 106.2 fl (80-94); Mean Platelet Volume 8.4 fl (7.4-10.4); Monocytes # 0.9 K/mm3 (0.1-1.0); Monocytes % 8.2 % (1.7-9.3); Neutrophils # 7.2 K/mm3 (1.8-7.8); Neutrophils % 65.1 % (37.0-80.0); Platelet Count 459 K/mm3 (142-424); Red Blood Count 3.36 M/mm3 (4.60-6.20); White Blood Count 11.1 K/mm3 (4.8-10.8)
== END 2018-02-07 12:35 | disposition home or self-care (01) ==
LOC: INF 14:20
PROVIDERS: Family Provider Internal Medicine; PCP Internal Medicine; Visit Provider Internal Medicine
DX: Z45.2 Encounter for adjustment and management of vascular access device (principal); M86.9 Osteomyelitis, unspecified
CPT/HCPCS: 80048; 80202; 85025; 96365

== ENCOUNTER → 2018-02-13 14:36 | Outpatient (CLI) | payer MEDICARE, SELFPAY ==
--- NOTE | 2018-02-13 14:56 | XR_ITS ---
XR foot wt bearing LT 3V HISTORY: Follow-up amputation ORDERING PHYSICIAN: Edwige Hernandez DPM PATIENT AGE: 77 years COMPARISON: 01/06/2018 FINDINGS: Status post transmetatarsal amputation of the left foot. Surgical clips are in place. No bony erosive change or abnormal soft tissue gas evident.. There is vascular calcification and a small calcaneal spur. IMPRESSION: Overall no change transmetatarsal amputation left foot
[2018-02-13 15:14] LABS: Basophils # 0.1 K/mm3 (0-0.2); Eosinophils # 0.8 K/mm3 (0.0-0.4); Eosinophils % 9.5 % (0.1-12.0); Hematocrit 37.5 % (42.0-52.0); Hemoglobin 11.8 g/dL (14.1-18.0); Lymphocytes # 1.3 K/mm3 (0.7-4.5); Lymphocytes % 14.8 K/mm3 (10-50); Mean Corpuscular HGB Conc 31.6 g/dL (31.8-35.4); Mean Corpuscular Hemoglobin 33.8 pg (27.0-31.2); Mean Corpuscular Volume 106.8 fl (80-94); Monocytes # 0.5 K/mm3 (0.1-1.0); Monocytes % 5.4 % (1.7-9.3); Neutrophils # 6.1 K/mm3 (1.8-7.8); Neutrophils % 69.2 % (37.0-80.0); Platelet Count 542 K/mm3 (142-424); Red Blood Count 3.51 M/mm3 (4.60-6.20); Red Cell Distribution Width 16.1 % (11.5-17.5); White Blood Count 8.7 K/mm3 (4.8-10.8)
[2018-02-13 15:36] LABS: C-Reactive Protein < 0.2 mg/L (0.0-0.9)
[2018-02-13 16:26] LABS: Erythrocyte Sedimentation Rate 64 mm/hr (0-20)
== END ==
PROVIDERS: PCP Internal Medicine; Visit Provider Podiatrist
DX: Z98.890 Other specified postprocedural states (principal); E11.9 Type 2 diabetes mellitus without complications
CPT/HCPCS: 36415; 73630; 83036; 85025; 85651; 86140

== ENCOUNTER → 2018-02-20 09:19 | Outpatient (REF) | payer MEDICARE, SELFPAY | LOC: LAB 09:19 | PROVIDERS: Visit Provider Podiatrist | DX: Z98.890 Other specified postprocedural states (principal) | CPT/HCPCS: 87070; 87205 ==

== ENCOUNTER → 2018-03-22 15:12 | Outpatient (REF) | payer MEDICARE, SELFPAY ==
[2018-03-22 15:22] LABS: Basophils # 0.1 K/mm3 (0-0.2); Basophils % 0.7 % (0.1-2.0); Eosinophils % 8.9 % (0.1-12.0); Hemoglobin 12.4 g/dL (14.1-18.0); Lymphocytes # 1.5 K/mm3 (0.7-4.5); Lymphocytes % 13.3 K/mm3 (10-50); Mean Corpuscular HGB Conc 30.2 g/dL (31.8-35.4); Mean Corpuscular Hemoglobin 32.1 pg (27.0-31.2); Mean Corpuscular Volume 106.3 fl (80-94); Mean Platelet Volume 8.5 fl (7.4-10.4); Monocytes % 8.3 % (1.7-9.3); Neutrophils # 7.9 K/mm3 (1.8-7.8); Neutrophils % 68.8 % (37.0-80.0); Platelet Count 494 K/mm3 (142-424); Red Blood Count 3.86 M/mm3 (4.60-6.20); Red Cell Distribution Width 16.7 % (11.5-17.5); White Blood Count 11.6 K/mm3 (4.8-10.8)
[2018-03-22 15:29] LABS: Anion Gap 13.5 mEq/L (5-15); Blood Urea Nitrogen 20 mg/dL (7-18); Carbon Dioxide 29 mmol/L (21.0-32.0); Chloride 99 mmol/L (98-107); Estimated Glomerular Filt Rate 65 ml/min (>60); GFR (African American) 79 ML/MIN (>60); Glucose 223 mg/dL (74-106); Potassium 4.5 mmoL/L (3.5-5.1); Sodium 137 mmol/L (136-145)
[2018-03-22 16:05] LABS: Erythrocyte Sedimentation Rate 26 mm/hr (0-20)
== END ==
LOC: LAB 15:12
PROVIDERS: Visit Provider Podiatrist
DX: M86.9 Osteomyelitis, unspecified (principal)
CPT/HCPCS: 80048; 85025; 85651

== ENCOUNTER 2018-03-24 06:06 | Day surgery (SDC) | payer MEDICARE, SELFPAY ==
[2018-03-23 13:42] VITALS: BMI 32.5
[2018-03-24 06:24] VITALS: BP 118/44; PULSE 66; RESP 18; TEMP 36.2; O2SAT 95
[2018-03-24 06:55] LABS: POC Glucose,Bedside 124 (70-110)
--- NOTE | 2018-03-24 07:00 | HMH.ANESCL ---
[facility] Anesthesia Checklist - Patient Identification Patient Identification: Arm Band, Verbal (Name & ) - Structural Data Admitted From: Home Consent for Planned Operative Procedure(s) Verified: Yes Verified Documents: Surgical Consent, History and Physical - NPO Status Verified Time NPO: 22:00 - Additional verifications Anesthesia Reactions: No - Airway Assessment C-Spine Mobility Assessed: Yes TMJ Mobility Assessed: Yes Dentition: Partials (Upper) - Neurological Assessment Level of Consciousness: Awake Hx Seizures: No Numbness or tingling in extremities: No - Anesthesia Plan Anesthesia Risk discussed: Yes Anesthesia Plan: Verified ASA Class: III Anesthesia Type: MAC [facility] Anesthesia HX I have reviewed the patient's past medical history: Yes Medical History: Reports:: Coronary Artery Disease, Deep Vein Thrombosis, Diabetes Mellitus Type 2, Hyperlipidemia, Hypertension, Myocardial Infarction, Peripheral Artery Disease, Peripheral Vascular Disease Denies:: Asthma, Atrial Fibrillation, Cancer, Congestive Heart Failure, Chronic Obstructive Pulmonary Disease (COPD), Diabetes Mellitus Type 1, Gastroesophageal Reflux Disease(GERD), Gastrointestinal Bleed, Internal Pacemaker, Lung Disease, Kidney Stones, MRSA, Osteoporosis, Pulmonary Embolism, Renal Disease, Seizures Other Medical History: Reports: Arthritis, Cataracts, Glaucoma. Denies: Blood Transfusion Reaction, Fibromyalgia, Hypothyroidism, Osteoporosis, Thyroid Disease Laterality Cases: Bilateral: Myringotomy (Ear Tubes) Other Surgeries: Yes: Splenectomy, Other. No: Pacemaker Amputation: Yes (Left hallux partial amputation) Fractures: Yes *Family Hx:: No significant family history
--- NOTE | 2018-03-24 08:39 | XR_ITS ---
XR foot LT min 3V HISTORY: Follow-up amputation ITS.REASON: post op ORDERING PHYSICIAN: Edwige Hernandez DPM PATIENT AGE: 77 years COMPARISON: 01/06/2018 FINDINGS: Status post proximal transmetatarsal amputation. Amputation is now more proximal compared to the previous exam of 01/06/2018 postsurgical gas and bandage artifact present. Diffuse vascular calcification noted. IMPRESSION: Status post proximal transmetatarsal amputation
[2018-03-24 08:48] VITALS: BP 99/46; PULSE 69; RESP 18; TEMP 36.3; O2SAT 91
--- NOTE | 2018-03-24 08:57 | XR_ITS ---
XR foot LT 2V HISTORY: ITS.REASON: TOE DEBRIDEMENT IN OR ORDERING PHYSICIAN: Edwige Hernandez DPM PATIENT AGE: 77 years COMPARISON: None Fluoroscopy time: 18 seconds FINDINGS: Status post proximal transmetatarsal amputation. Amputation is now more proximal compared to the previous exam of 01/06/2018. IMPRESSION: Status post proximal transmetatarsal amputation
[2018-03-24 09:03] VITALS: BP 99/47; PULSE 57; RESP 18; O2SAT 93
[2018-03-24 09:18] VITALS: BP 97/50; PULSE 55; RESP 18; O2SAT 93
--- NOTE | 2018-03-24 09:28 | HMH.OPNOTE ---
Date of procedure: 03/24/18 Pre-op Diagnosis:: 1. Left foot DM ulcer 2. Left foot osteomyelitis 3. S/p left foot ulcer debridement, delayed primary closure, application of Integra wound graft on 02/01/18 4. S/p left TMA on 01/06/18 Post-op Diagnosis:: 1. Left foot DM ulcer 2. Left foot osteomyelitis 3. S/p left foot ulcer debridement, delayed primary closure, application of Integra wound graft on 02/01/18 4. S/p left TMA on 01/06/18 Procedure performed:: 1. Left foot ulcer debridement, excision 2. Left revision of transmetatarsal amputation 3. Left delayed primary closure 4. Left foot application of Integra wound graft Surgeon:: Edwige Hernandez DPM NURSE EPIDEMIOLOGIST:: Other (Sloan Walker) Anesthesia: MAC, local Estimated blood loss (mL): 10 Clinical Note:: Mr. Lea is a 77 y/o DM RA male who presents for continued left foot ulcer. 02/01/18: S/p Left foot ulcer debridement, delayed primary closure, application of Integra wound graft on 02/01/18 and s/p left TMA on 01/06/18. He has been using the wound vac > 3 weeks. He denies any new issues. He had the PICC removed with no new drainage or infection symptoms. Patient is having vac changes MWF. Wound vac @125mmHg medium continuous flow to left foot. X-rays 02/13/18: no new evidence of cortical erosions or OM noted, no gas Labs 02/07/18: wbc 11.1, glucose 161, vanco trough 13.3 Labs 02/13/18: wbc 8.7, ESR 64 (from 120), CRP <0.2 (15.3, 17.9) Labs 03/02/18: wbc 9.8, ESR 48, CRP 5.5 Labs 03/22/18: wbc 11.6, ESR 26, creatinine 1.1 Once again, we discussed future options including the use of a wound VAC and continue local wound care with possible regrafting. The other option discussed is return to the operating room for further debridement, metatarsal resection and delayed primary closure. The wound has too much tension and will not close medially. My recommendation is surgery. We discussed surgical intervention for left foot ulcer. Patient understands that there is a chance that the foot may change shape after surgery. Patient also understands that they could have wound healing complications including delayed healing and infection. We discussed that if the wound does not heal, it is possible that they may need a more proximal amputation and could result in further loss of digits, loss of partial foot or loss of leg. We discussed the risks and benefits in great detail. Other surgical risks include: prolonged pain and swelling, further infection requiring oral or IV antibiotics, delay in healing of soft tissue or bone, nerve or blood vessel damage, CRPS/RSD, DVT, anesthesia complications, and even . All questions answered. Written consent obtained. Plan for surgery Tuesday03/24/18: left foot ulcer debridement, metatarsal resection, delayed primary closure, possible application of wound vac, application of skin graft. Operative findings:: Status post left TMA. There is mild non pitting edema noted. No malodor noted. No pain to palpation with compression of the medial wound. There is new tissue formation noted to both the medial and lateral wound sites. The lateral wound is 3.1 x 1.6cm and probes 0.3cm. The new tissue is 70% granular and 30% fibrotic. No necrotic tissue noted. The medial wound is 3.2 x 2.4 and probes to bone. Serous drainage. The metatarsal is visible in wound bed medially. Operative note:: On this date and time patient was deemed an appropriate surgical candidate. With informed consent signed, the patient was taken to the local procedure operating theater room. The patient was positioned supine. No anesthesia was induced. Mid calf tourniquet @225 mmHg. Pre-op left foot block given with 20 cc 0.5% marcaine plain. Left ulcer debridement and excision: The left extremity was prepped and draped in normal sterile fashion. All sutures were removed. Attention was directed to the medial aspect of the left hallux where an ulcer was noted. There is new tissue formation noted to both the medial and lateral wound sit
--- NOTE | 2018-03-24 09:31 | P.OP_ITS ---
Date of procedure: 03/24/18 Pre-op Diagnosis:: 1. Left foot DM ulcer 2. Left foot osteomyelitis 3. S/p left foot ulcer debridement, delayed primary closure, application of Integra wound graft on 02/01/18 4. S/p left TMA on 01/06/18 Post-op Diagnosis:: 1. Left foot DM ulcer 2. Left foot osteomyelitis 3. S/p left foot ulcer debridement, delayed primary closure, application of Integra wound graft on 02/01/18 4. S/p left TMA on 01/06/18 Procedure performed:: 1. Left foot ulcer debridement, excision 2. Left revision of transmetatarsal amputation 3. Left delayed primary closure 4. Left foot application of Integra wound graft Surgeon:: Edwige Hernandez DPM CUSTOMER SUCCESS SPECIALIST:: Other (Sloan Walker) Anesthesia: MAC, local Estimated blood loss (mL): 10 Clinical Note:: Mr. Lea is a 77 y/o DM RA male who presents for continued left foot ulcer. 09/10: S/p Left foot ulcer debridement, delayed primary closure, application of Integra wound graft on 02/01/18 and s/p left TMA on 01/06/18. He has been using the wound vac > 3 weeks. He denies any new issues. He had the PICC removed with no new drainage or infection symptoms. Patient is having vac changes MWF. Wound vac @125mmHg medium continuous flow to left foot. X-rays 02/13/18: no new evidence of cortical erosions or OM noted, no gas Labs 02/07/18: wbc 11.1, glucose 161, vanco trough 13.3 Labs 02/13/18: wbc 8.7, ESR 64 (from 120), CRP <0.2 (15.3, 17.9) Labs 03/02/18: wbc 9.8, ESR 48, CRP 5.5 Labs 03/22/18: wbc 11.6, ESR 26, creatinine 1.1 Once again, we discussed future options including the use of a wound VAC and continue local wound care with possible regrafting. The other option discussed is return to the operating room for further debridement, metatarsal resection and delayed primary closure. The wound has too much tension and will not close medially. My recommendation is surgery. We discussed surgical intervention for left foot ulcer. Patient understands that there is a chance that the foot may change shape after surgery. Patient also understands that they could have wound healing complications including delayed healing and infection. We discussed that if the wound does not heal, it is possible that they may need a more proximal amputation and could result in further loss of digits, loss of partial foot or loss of leg. We discussed the risks and benefits in great detail. Other surgical risks include: prolonged pain and swelling, further infection requiring oral or IV antibiotics, delay in healing of soft tissue or bone, nerve or blood vessel damage, CRPS/RSD, DVT, anesthesia complications, and even . All questions answered. Written consent obtained. Plan for surgery Tuesday03/24/18: left foot ulcer debridement, metatarsal resection, delayed primary closure, possible application of wound vac, application of skin graft. Operative findings:: Status post left TMA. There is mild non pitting edema noted. No malodor noted. No pain to palpation with compression of the medial wound. There is new tissue formation noted to both the medial and lateral wound sites. The lateral wound is 3.1 x 1.6cm and probes 0.3cm. The new tissue is 70% granular and 30% fibrotic. No necrotic tissue noted. The medial wound is 3.2 x 2.4 and probes to bone. Serous drainage. The metatarsal is visible in wound bed medially. Operative note:: On this date and time patient was deemed an appropriate surgical candidate. With informed consent signed, the patient was taken to the local procedure operating theater room. The patient was positioned supine. No anesthesia was induced. Mid calf tourniquet @225 mmHg. Pre-op left foot block given with 20 cc 0.5% marcaine plain. Left ulcer debridem
[2018-03-24 11:14] VITALS: BP 107/52; PULSE 63; RESP 18; O2SAT 93
== END 2018-03-24 09:33 | disposition home or self-care (01) ==
LOC: OR 06:08
PROVIDERS: Family Provider Internal Medicine; PCP Internal Medicine; Visit Provider Podiatrist
DX: E11.42 Type 2 diabetes mellitus with diabetic polyneuropathy (principal); E11.621 Type 2 diabetes mellitus with foot ulcer; E11.69 Type 2 diabetes mellitus with other specified complication; M86.172 Other acute osteomyelitis, left ankle and foot; Z89.432 Acquired absence of left foot; I25.10 Atherosclerotic heart disease of native coronary artery without angina pectoris; Z86.718 Personal history of other venous thrombosis and embolism; I10 Essential (primary) hypertension; I25.2 Old myocardial infarction; Z90.81 Acquired absence of spleen; Z82.49 Family history of ischemic heart disease and other diseases of the circulatory system; Z88.0 Allergy status to penicillin; Z79.02 Long term (current) use of antithrombotics/antiplatelets; Z79.82 Long term (current) use of aspirin; Z79.4 Long term (current) use of insulin; Z79.899 Other long term (current) drug therapy; E78.5 Hyperlipidemia, unspecified; L97.526 Non-pressure chronic ulcer of other part of left foot with bone involvement without evidence of necrosis
CPT/HCPCS: 28805; 73620; 73630; 76000; 82962; 87070; 87077; 87186; 87205; 88305; 88311; 96374; Q4114

== ENCOUNTER → 2018-04-04 13:59 | Outpatient (CLI) | payer MEDICARE, SELFPAY ==
[2018-04-04 14:21] LABS: Basophils # 0.1 K/mm3 (0-0.2); Basophils % 1.1 % (0.1-2.0); Eosinophils # 0.9 K/mm3 (0.0-0.4); Eosinophils % 9.3 % (0.1-12.0); Hematocrit 37.6 % (42.0-52.0); Hemoglobin 11.6 g/dL (14.1-18.0); Lymphocytes # 1.4 K/mm3 (0.7-4.5); Lymphocytes % 13.3 K/mm3 (10-50); Mean Corpuscular HGB Conc 30.8 g/dL (31.8-35.4); Mean Corpuscular Hemoglobin 32.1 pg (27.0-31.2); Mean Corpuscular Volume 104.2 fl (80-94); Monocytes # 0.8 K/mm3 (0.1-1.0); Monocytes % 7.8 % (1.7-9.3); Neutrophils % 68.5 % (37.0-80.0); Platelet Count 645 K/mm3 (142-424); Red Blood Count 3.61 M/mm3 (4.60-6.20); Red Cell Distribution Width 16.2 % (11.5-17.5); White Blood Count 10.1 K/mm3 (4.8-10.8)
[2018-04-04 15:03] LABS: Erythrocyte Sedimentation Rate > 120 mm/hr (0-20)
== END ==
PROVIDERS: Family Provider Internal Medicine; PCP Internal Medicine; Visit Provider Podiatrist
DX: L03.90 Cellulitis, unspecified (principal); Z98.890 Other specified postprocedural states
CPT/HCPCS: 36415; 85025; 85651; 86140

== ENCOUNTER 2018-04-13 09:45 | Outpatient (CLI) | payer MEDICARE, SELFPAY ==
[2018-04-13] VITALS (7 sets, daily range): BP systolic 115–136; BP diastolic 48–65; PULSE 70–93; RESP 16–18; TEMP 36.5; O2SAT 92; BMI 31.1
[2018-04-13 10:36] LABS: Basophils # 0.1 K/mm3 (0-0.2); Basophils % 0.7 % (0.1-2.0); Eosinophils # 0.5 K/mm3 (0.0-0.4); Eosinophils % 4.4 % (0.1-12.0); Hematocrit 38.2 % (42.0-52.0); Hemoglobin 11.8 g/dL (14.1-18.0); Lymphocytes # 1.5 K/mm3 (0.7-4.5); Lymphocytes % 13.6 K/mm3 (10-50); Mean Corpuscular HGB Conc 30.8 g/dL (31.8-35.4); Mean Corpuscular Hemoglobin 31.4 pg (27.0-31.2); Mean Corpuscular Volume 101.9 fl (80-94); Mean Platelet Volume 7.8 fl (7.4-10.4); Monocytes # 0.8 K/mm3 (0.1-1.0); Monocytes % 6.6 % (1.7-9.3); Neutrophils # 8.5 K/mm3 (1.8-7.8); Neutrophils % 74.7 % (37.0-80.0); Platelet Count 700 K/mm3 (142-424); Red Blood Count 3.75 M/mm3 (4.60-6.20); Red Cell Distribution Width 16.2 % (11.5-17.5); White Blood Count 11.3 K/mm3 (4.8-10.8)
[2018-04-13 11:19] LABS: Erythrocyte Sedimentation Rate > 120 mm/hr (0-20)
--- NOTE | 2018-04-13 14:02 | XR_ITS ---
XR foot wt bearing LT 3V Ordering Physician: Edwige Hernandez DPM Patient Age: 77 years: Male HISTORY: ITS.REASON: post-op TECHNIQUE: 3 views left foot. Labeled as weightbearing COMPARISON :02/13/2018 FINDINGS Appears to been further amputation of the forefoot since prior study of February 13. More proximal Amputation now level now at the proximal metatarsals left foot... Soft tissue changes are seen at the stump the site overlying. There is a discrete margin at the second, third, fourth and fifth metatarsal. The margin of the first metatarsal is not quite as well delineated and sharp and will require close follow-up for any for any progressive irregularity or erosive changes. At the tarsals appear intact. Small vessel calcification seen throughout the ankle reflecting underlying diabetes. Calcifications at distal aspect & & insertion insertion Achilles tendon; and along at the plantar aponeurosis observed IMPRESSION: ...... Appears to be a repeat and more proximal metatarsal amputation evident since 02/13/2018 . Amputated stump of the first metatarsal is not as well delineated than the other amputated metatarsals. Cannot exclude some early irregularity or possible early erosive changes here. Will require close follow-up . Clinical correlation required
== END 2018-04-13 13:55 | disposition home or self-care (01) ==
LOC: INF 11:08
PROVIDERS: Family Provider Internal Medicine; PCP Internal Medicine; Visit Provider Podiatrist
DX: M86.9 Osteomyelitis, unspecified (principal); E11.621 Type 2 diabetes mellitus with foot ulcer; Z98.890 Other specified postprocedural states
CPT/HCPCS: 73630; 85025; 85651; 86140; 96365; 96366; J2407

== ENCOUNTER → 2018-04-25 13:56 | Outpatient (CLI) | payer MEDICARE, SELFPAY ==
--- NOTE | 2018-04-25 13:58 | US_ITS ---
US Arterial Ankle Brachial Ind History: ITS.REASON: no pulses, non-healing wound ORDERING PHYSICIAN: Edwige Hernandez DPM PATIENT AGE: 77 years TECHNIQUE: Segmental pressures obtained of both right and left leg. These are compared to brachial blood pressure to yield index at each level sampled including summary SATNISLAV. The data sheets from the procedure are available in PACS FINDINGS Rest study only performed today No prior studies available for comparison. Blood pressures reported are in millimeters mercury. RIGHT LEG STANISLAV = 0.7. RIGHT LEG TBI=.02 Brachial BP: 102 Thigh BP: 161 Calf BP: 113 Ankle PT: 74 Ankle DP : 69 Digit =21 LEFT LEG STANISLAV = 1.1 LEFT LEG TBI= No digits to monitor due to amputation. Brachial BPD: 105 Thigh BP: >254 Calf BP: 158 Ankle PT:110 Ankle DP: >254 Digit = Pulses and waveforms: Diminished pulses bilaterally IMPRESSION: 1. Slightly low right STANISLAV is 0.7 consistent with moderate atherosclerotic vascular disease 2. Low right tibia of 0.2 consistent with small vessel disease
== END ==
PROVIDERS: Family Provider Internal Medicine; PCP Internal Medicine; Visit Provider Podiatrist
DX: I73.9 Peripheral vascular disease, unspecified (principal)
CPT/HCPCS: 93922

== ENCOUNTER → 2018-05-16 13:52 | Outpatient (REF) | payer MEDICARE, SELFPAY | LOC: LAB 13:52 | PROVIDERS: Visit Provider Podiatrist | DX: M86.172 Other acute osteomyelitis, left ankle and foot (principal); E11.621 Type 2 diabetes mellitus with foot ulcer | CPT/HCPCS: 87070; 87077; 87186; 87205 ==

== ENCOUNTER 2018-08-22 11:30 | Outpatient (RCR) | payer MEDICARE, SELFPAY ==
--- NOTE | 2018-04-20 16:16 | HMH.PTOPWND ---
Rehab Outpt Wound Evaluation Rehab OP Wound Evaluation Start: 04/20/18 15:59 Freq: Status: Active Protocol: Document 04/20/18 15:59 LUCHO (Rec: 04/20/18 16:16 PHORNE [id number]) Electronically Signed By Werner Mcmillan, KENN 04/20/18 15:59 Subjective/History History History Pt is a 77 yo whit male who presents with left TM amputation with wound at incision site due ti poor healing. He initially had a great toe wound with gangrene developing which failed HBO treatment and resulting in the toe amputation. His wound failed to heal resulting in the TM amputation, which has started to fail despite skin graft. He has undergone revascularization of the Left LE previously also. His goal is to avoid any further surgery and he has undergone IV abx infusion therapy recently. PMH: DM, CAD, PVD, PA, PAD, HL Wound Eval Wound Left Foot Wound Type Amputation Wound Length (cm) 1.7 Wound Width (cm) 4.5 Wound Depth (cm) 2.7 Wound Bed Appearance Beefy Red Yellow Percentage Granulated (%) 10 Percentage of Slough (%) 90 Wound Margins Description Well Defined Surrounding Tissue Appearance [place] Edema Type Pitting Edema Degree 2+ Query Text:1+ Trace, Barely Detectable, Rebound 15-30 seconds 2+ Moderate, Slight Indentation, Rebound 10-20 seconds 3+ Deep, Deeper Indentation, Rebound > 30 seconds 4+ Very Deep, Rebound > 60 seconds Edema Appearance Shiny Drainage Description Serosanguineous Drainage Amount Large Wound Topical Solution/Irrigant Saline Irrigant Packing Type Alginate Comment tegaderm Ag mesh with [place]bal[place] Ag Primary Dressing Absorbant Pad Wound Secondary Dressing Type Gauze Roll/Wrap Adhering Gauze Roll Wound Debridement Method Sharps Forceps Wound Debridement Amount of Tissue Moderate Removed Wound Debridement Result Healthy Tissue Revealed
--- NOTE | 2018-07-25 16:07 | HMH.RHREAS ---
Rehab Reassessment Rehab OP Re-assessment Start: 07/25/18 16:03 Freq: Status: Active Protocol: Document 07/25/18 16:04 LUCHO (Rec: 07/25/18 16:07 LUCHO [id number]) Electronically Signed By Werner Mcmillan, PT 07/25/18 16:04 Rehab Re-assessment Subjective Subjective Pt reports no c/o pain and is very happy with progress of wound healing. Objective Objective Notes Left distal foot wound: length = 0.4 cm, width= 4.0 cm. Assessment Progress Assessment Progressing as Expected Assessment Notes Pt has significant improvement in wound appearance and size. Also improved mobility and transfers. Patient goals met STG: all met Goals Not Met LTG: none met Revised Goals none Plan Plan Continue per initial POC. Frequency of Therapy 2 Duration of therapy 8 Time and Billing Re-Eval Time 0 Re-Eval Billing Units 0 PHYSICIAN CERTIFICATION: I certify the specified therapy services for Ken Lea are required, authorized, and reviewed every 30 days.
== END 2018-08-22 11:35 | disposition home or self-care (01) ==
LOC: PT 11:30
PROVIDERS: Family Provider Internal Medicine; PCP Internal Medicine; Visit Provider Podiatrist
DX: E11.621 Type 2 diabetes mellitus with foot ulcer (principal); M79.605 Pain in left leg; M86.172 Other acute osteomyelitis, left ankle and foot
CPT/HCPCS: 97140; 97163; 97164; 97597

== ENCOUNTER → 2018-08-22 12:55 | Outpatient (CLI) | payer MEDICARE, SELFPAY ==
[2018-08-22 15:58] LABS: C-Reactive Protein < 0.2 mg/L (0.0-0.9)
== END ==
PROVIDERS: PCP Internal Medicine; Visit Provider Podiatrist
DX: Z98.890 Other specified postprocedural states (principal); Z51.89 Encounter for other specified aftercare; M86.9 Osteomyelitis, unspecified
CPT/HCPCS: 36415; 85025; 85651; 86140

== ENCOUNTER → 2018-08-24 11:50 | Outpatient (POV) | payer MEDICARE, SELFPAY | PROVIDERS: Visit Provider Podiatrist | DX: Z00.00 Encounter for general adult medical examination without abnormal findings (principal) ==

== ENCOUNTER → 2018-11-21 10:53 | Outpatient (CLI) | payer MEDICARE, SELFPAY ==
[2018-11-21 11:15] LABS: Anion Gap 10.5 mEq/L (5-15); Blood Urea Nitrogen 20 mg/dL (7-18); Calcium 9.8 mg/dL (8.5-10.1); Carbon Dioxide 31 mmol/L (21.0-32.0); Chloride 97 mmol/L (98-107); Creatinine,Serum 1.26 mg/dL (0.70-1.30); Estimated Glomerular Filt Rate 55 ml/min (>60); GFR (African American) 67 ML/MIN (>60); Glucose 107 mg/dL (74-106); Potassium 4.5 mmoL/L (3.5-5.1); Sodium 134 mmol/L (136-145)
== END ==
PROVIDERS: Visit Provider Internal Medicine
DX: I25.10 Atherosclerotic heart disease of native coronary artery without angina pectoris (principal); I73.9 Peripheral vascular disease, unspecified; I10 Essential (primary) hypertension; E11.9 Type 2 diabetes mellitus without complications; E78.2 Mixed hyperlipidemia
CPT/HCPCS: 36415; 80048

== ENCOUNTER 2019-04-05 14:00 | Outpatient (RCR) | payer MEDICARE, SELFPAY ==
--- NOTE | 2019-02-07 16:23 | HMH.PTOPEV ---
PT Outpatient Evaluation Rehab PT Outpatient Evaluation Start: 02/07/19 16:14 Freq: Status: Active Protocol: Document 02/07/19 16:14 LUCHO (Rec: 02/07/19 16:23 PHOROMER [id number]) Electronically Signed By Werner Mcmillan, PT 02/07/19 16:14 Outpatient Therapy Subjective History Subjective History Pt is 78 yowm who presents with c/o decreased balance and endurance x ~ 1 yr S/P left transmetatarsal amputation. He reports mild edema in lisa LE which he attributes to a side- effect of one of his diabetes medications. He also reports having a right LE endarterectomy performed ~ 6 wks ago. He had a difficult time with healing of his left foot after the amputation and was relegated to a w/c for a long period of time. He currently reports no pain and wishes to be able to become more active with less fatigue. PMH: DM-II with neuropathy, left transmetatarsal amputation, right LE endarterectomy. Chief Complaint Weakness Symptoms Relieved By Nothing Symptoms Aggravated By Physical Activity Prior Functional Limitations Standing Recreation Activity Walking Stairs Current Functional Limitations Standing Recreation Activity Walking Stairs Level of pain today (0-10) 0 Balance Eval Hx of Falls Hx Falls No Gait/Posture Asssessment General Gait Observation Wide Based Gait Assistive Devices Straight Cane Level of Transfer Assist Independent Hip Observation in Gait Swing Circumducted Externally Rotated Ankle/Foot Observation in Gait Swing Decreased Foot Clearance Timed Up and Go Test 1. Is the Timed Up and Go test result > yes or = to 12 seconds? [place] Feet Together/Eyes open/Stable Surface pass Feet Together/Eyes Closed/Stable Surface fail Feet Together/Eyes open/Unstable Surface fail Feet Together/Eyes Closed/Unstable fail Surface Outpatient Therapy Assessment Impairments Problems/Impairmments Impaired Strength
== END 2019-04-05 14:05 | disposition home or self-care (01) ==
LOC: PT 14:00
PROVIDERS: Visit Provider Podiatrist
DX: I89.0 Lymphedema, not elsewhere classified (principal); R60.0 Localized edema
CPT/HCPCS: 97110; 97112; 97163

== ENCOUNTER → 2019-04-11 13:21 | Outpatient (POV) | payer MEDICARE, SELFPAY | DX: Z00.00 Encounter for general adult medical examination without abnormal findings (principal) ==

== ENCOUNTER → 2020-07-16 13:09 | Outpatient (POV) | payer MEDICARE, SELFPAY | DX: Z00.00 Encounter for general adult medical examination without abnormal findings (principal) ==

== ENCOUNTER → 2020-12-31 14:00 | Outpatient (POV) | payer MEDICARE, SELFPAY | DX: Z00.00 Encounter for general adult medical examination without abnormal findings (principal) ==

== ENCOUNTER 2021-02-14 05:06 | Inpatient (IN) | payer MEDICARE, SELFPAY ==
[2021-02-14] VITALS (15 sets, daily range): BP systolic 103–124; BP diastolic 53–80; PULSE 60–104; RESP 14–20; TEMP 36.4–37.9; O2SAT 93–98; BMI 28.7; BMI 28.8
--- NOTE | 2021-02-14 04:38 | ECG_ITS ---
APPROVED REPORT Exam: Resting ECG HR:97 bpm ECG Measurements Heart Rate 97 AXES HI 212 P 59 QRSd 126 QRS -76 QT 346 T 70 QTc 439 Conclusion Sinus rhythm with 1st degree AV block Left axis deviation Right bundle branch block Inferior infarct -- old changes Abnormal ECG Electronically signed by : Jassi Steel, 02/14/2021 15:48:22
--- NOTE | 2021-02-14 04:53 | XR_ITS ---
PROCEDURE: XR CHEST PORTABLE CLINICAL HISTORY: fall Posttraumatic pain COMPARISON: CR CXR CHEST(2 VIEWS-NOT PORTABLE) from 12/15/2016 CR CXR2V XR chest 2V from 12/27/2017 CR CXR1VP XR chest portable from 01/06/2018 FINDINGS: Prior CABG with cardiomegaly without failure. The lungs are clear without infiltrates, suspicious nodules, or pleural effusions. No acute bony abnormalities. IMPRESSION: No acute findings. Dictated by: Elroy Fuchs MD 02/14/2021 06:12 Elroy Fuchs MD in [facility] 02/14/2021 06:12
--- NOTE | 2021-02-14 04:53 | XR_ITS ---
PROCEDURE: XR PELVIS 1-2V CLINICAL INDICATION: fall Posttraumatic pain COMPARISON: No exams were available for comparison TECHNIQUE: XR Pelvis AP View FINDINGS: No fracture or dislocation is evident. Mild degenerative changes of the hips. Periarticular calcification lateral to the right femoral neck and could represent an old avulsion fracture the greater trochanter.. Surgical clips present over the perineal region. IMPRESSION: No acute findings. Dictated by: Elroy Fuchs MD 02/14/2021 06:11 Elroy Fuchs MD in [facility] 02/14/2021 06:11
--- NOTE | 2021-02-14 04:53 | CT_ITS ---
PROCEDURE: CT CERVICAL SPINE WO CON CLINICAL INDICATION: fall Neck injury with pain, contusion/abrasion or hematoma, cervical sprain/strain the COMPARISON: No exams were available for comparison TECHNIQUE: Axial images obtained with sagittal and coronal reformats. All CT scans at the facility use one or more dose reduction, viz: automated exposure control, ma/kV adjustment per patient size (including targeted exams where dose is matched to indication, i.e. head), or iterative reconstruction technique. Axial spiral CT scanning performed of the cervical spine beginning at the base of the skull and continuing to the upper T-spine. 3-D multiplanar reconstruction with 3-D manipulation of volumetric data set in image rendering was completed by the radiologist and/or technologist with the supervision of the radiologist on independent workstation. FINDINGS: There is normal alignment. No fracture or dislocation. C2-C3: Unremarkable. C3-C4: Broad-based prominent partially calcified central left paracentral disc protrusion causing canal stenosis and left lateral recess and foraminal narrowing. C4-C5: Degenerative disc disease with a small left paracentral disc protrusion C5-C6: Degenerative disc disease with small central disc osteophyte complex with left-sided lateral recess and foraminal narrowing from facet and uncovertebral hypertrophy. C6-C7: Degenerative disc disease. C7-T1: Unremarkable. IMPRESSION: 1. No acute fracture. 2. Multilevel cervical spondylosis. Please see above for detailed description at each level Dictated by: Elroy Fuchs MD 02/14/2021 06:57 Elroy Fuchs MD in [facility] 02/14/2021 06:57
--- NOTE | 2021-02-14 04:53 | CT_ITS ---
PROCEDURE: CT HEAD/BRAIN WO CON CLINICAL INDICATION: fall Head injury with headache/pain, contusion, abrasion or hematoma COMPARISON: No exams were available for comparison TECHNIQUE: Axial images obtained. All CT scans at the facility use one or more dose reduction, viz: automated exposure control, ma/kV adjustment per patient size (including targeted exams where dose is matched to indication, i.e. head), or iterative reconstruction technique. FINDINGS: No midline shift, mass effect, intracranial hemorrhage, hydrocephalus, or extra-axial fluid collection is evident. There is generalized atrophy with hypoattenuation of the periventricular white matter consistent with microangiopathic changes. The calvarium has an unremarkable appearance. No mastoid effusion. Mucosal thickening involves the ethmoid sinuses IMPRESSION: No acute intracranial finding Dictated by: Elroy Fuchs MD 02/14/2021 06:51 Elroy Fuchs MD in [facility] 02/14/2021 06:51
[2021-02-14 05:23] LABS: Basophils # 0.2 K/mm3 (0-0.2); Basophils % 0.7 % (0.1-2.0); Eosinophils # 0.1 K/mm3 (0.0-0.4); Eosinophils % 0.5 % (0.1-12.0); Hematocrit 43.2 % (42.0-52.0); Hemoglobin 13.9 g/dL (14.1-18.0); Lymphocytes # 0.9 K/mm3 (0.7-4.5); Lymphocytes % 3.8 % (10-50); Mean Corpuscular HGB Conc 32.2 g/dL (31.8-35.4); Mean Corpuscular Hemoglobin 33.4 pg (27.0-31.2); Mean Corpuscular Volume 103.5 fl (80-94); Mean Platelet Volume 9.2 fl (7.4-10.4); Monocytes # 1.2 K/mm3 (0.1-1.0); Monocytes % 4.8 % (1.7-9.3); Neutrophils # 22.6 K/mm3 (1.8-7.8); Neutrophils % 90.2 % (37.0-80.0); Platelet Count 475 K/mm3 (142-424); Red Blood Count 4.18 M/mm3 (4.60-6.20)
[2021-02-14 05:28] LABS: Alanine Aminotransferase 25 U/L (12-78); Albumin Level 4.4 g/dl (3.5-5.0); Albumin/Globulin Ratio 1.4 (1.1-1.8); Alkaline Phosphatase 88 U/L (38-126); Anion Gap 12.8 mEq/L (5-15); Aspartate Amino Transferase 35 U/L (17-59); Bilirubin,Total 0.9 mg/dl (0.2-1.3); Blood Urea Nitrogen 25 mg/dl (9-20); Calcium 9.7 mg/dl (8.4-10.2); Carbon Dioxide 27 mmol/L (22.0-30.0); Chloride 100 mmol/L (98-107); Creatinine Clearance Estimated 63 mL/min (50-200); Estimated Glomerular Filt Rate 53 ml/min (>60); GFR (African American) 64 ML/MIN (>60); Globulin 3.1 g/dL (1.3-3.2); Glucose 147 mg/dl (74-100); Potassium 4.8 mmoL/L (3.5-5.1); Sodium 135 mmol/L (136-145); Total Protein,Serum 7.5 g/dl (6.3-8.2)
[2021-02-14 05:33] LABS: C-Reactive Protein 58.9 mg/L (0-4)
[2021-02-14 05:42] LABS: Troponin I 0.02 ng/ml (0.00-0.034)
--- NOTE | 2021-02-14 05:42 | HMH.EDFALL ---
ED Disposition Clinical Impression: SIRS (systemic inflammatory response syndrome), Multiple falls, Right bundle branch block Leukocytosis (leucocytosis) Qualifiers: Leukocytosis type: bandemia Qualified Code(s): D72.825 - Bandemia Diabetes mellitus Qualifiers: Diabetes mellitus type: type 2 Diabetes mellitus watermaster insulin use: unspecified assisted insulin use status Diabetes mellitus complication status: with other specified complication Qualified Code(s): E11.69 - Type 2 diabetes mellitus with other specified complication Disposition: Admitted as Observation Condition on Discharge: Good Referrals: Floyd Olea [Primary Care Provider] - - Critical Care Critical Care Time: No Attestation: On 02/14/21, the high probability of a clinically significant, sudden or life threatening deterioration of the following system(s) required my full and direct attention, intervention and personal management. The time I documented below is in addition to time spent performing reported procedures but includes the following listed in this critical care notation. Medical Decision Making - Medical Records Medical records reviewed: Yes: I reviewed the patient's medical records. - [place] Inquiry Pt receiving controlled substance: No Vital Signs: 02/14/21 04:45 02/14/21 05:30 02/14/21 06:30 Temperature 100.2 F H Temperature Source Oral Pulse Rate 91 H 83 Pulse Rate [Right Brachial] 104 H Respiratory Rate 14 17 16 Blood Pressure 103/62 L 122/64 Blood Pressure [Right Arm] 124/67 Blood Pressure Mean [Right Arm] 86 Blood Pressure Source Automatic Cuff Blood Pressure Source [Right Arm] Automatic Cuff Blood Pressure Position Supine Blood Pressure Position [Right Arm] Sitting 02 Sat by Pulse Oximetry 98 95 93 L Oxygen Delivery Method Room Air Room Air Room Air 02/14/21 06:41 Temperature 98.4 F Temperature Source Oral Pulse Rate Pulse Rate [Right Brachial] Respiratory Rate Blood Pressure Blood Pressure [Right Arm] Blood Pressure Mean [Right Arm] Blood Pressure Source Blood Pressure Source [Right Arm] Blood Pressure Position Blood Pressure Position [Right Arm] 02 Sat by Pulse Oximetry Oxygen Delivery Method - Lab Data Lab results reviewed: Yes: I reviewed the patient's lab results. Lab Results 02/14/21 04:47: WBC 25.0 H*, RBC 4.18 L, Hgb 13.9 L, Hct 43.2, MCV 103.5 H, MCH 33.4 H, MCHC 32.2, RDW 17.0, Plt Count 475 H, MPV 9.2, Neut % (Auto) 90.2 H, Lymph % (Auto) 3.8 L, [place] % (Auto) 4.8, Eos % (Auto) 0.5, Baso % (Auto) 0.7, Neut # (Auto) 22.6 H, Lymph # (Auto) 0.9, [place] # (Auto) 1.2 H, Eos # (Auto) 0.1, Baso # (Auto) 0.2, Total Counted 100, Neutrophils % (Manual) 93 H, Lymphocytes % (Manual) 3 L, Monocytes % (Manual) 4, Platelet Estimate Slight increase, RBC Morphology Not Reportable, Anisocytosis 1+, Macrocytosis 1+, Acanthocytes (Spur) 1+, ESR 27 H 02/14/21 04:47: Sodium 135 L, Potassium 4.8, Chloride 100, Carbon Dioxide 27, Anion Gap 12.8, BUN 25 H, Creatinine 1.30 H, Estimated Creat Clear 63, Estimated GFR 53 L, Est GFR ( Amer) 64, Glucose 147 H, Calcium 9.7, Total Bilirubin 0.9, AST 35, ALT 25, Alkaline Phosphatase 88, Troponin I 0.02, C-Reactive Protein 58.9 H, Total Protein 7.5, Albumin 4.4, Globulin 3.1, Albumin/Globulin Ratio 1.4, Procalcitonin 0.617 02/14/21 04:47: Lactate 2.0 02/14/21 04:47: NT-Pro-B Natriuret Pep 1270 H 02/14/21 04:47: Total Creatine Kinase 347 H 02/14/21 04:47: Acetone Level None detected 02/14/21 05:27: Urine Color Yellow, Urine Appearance Clear, Urine pH 7.0, Ur Specific [place] 1.010, Urine Protein Negative, Urine Glucose (UA) 3+, Urine Ketones Trace, Urine Blood Negative, Urine Nitrate Negative, Urine Bilirubin Negative, Urine Urobilinogen 0.2, Ur Leukocyte Esterase Negative, Urine RBC None, Urine WBC Occasional, Ur Squamous Epith Cells None, Urine Bacteria None 02/14/21 05:27: Urine Opiates Screen Negative, Urine Methadone Screen Negative, Ur Barbituates S
[2021-02-14 05:43] LABS: MANUAL DIFFERENTIAL MANUAL DIFFERENTIAL (MANUAL DIFF)
[2021-02-14 05:45] LABS: Adenovirus,PCR Not Detected (NotDetected); Bordetella Pertussis Not Detected (NotDetected); Chlamydophila Pneumoniae, PCR Not Detected (NotDetected); Coronavirus 19, PCR Not Detected (NotDetected); Coronavirus 229E Not Detected (NotDetected); Coronavirus NL63 Not Detected (NotDetected); Coronavirus OC43 Not Detected (NotDetected); Coronovirus HKU1,PCR Not Detected (NotDetected); Human Metapneumovirus Not Detected (NotDetected); Influenza A, PCR Not Detected (NotDetected); Influenza AH1, 2009 Not Detected (NotDetected); Influenza AH1, PCR Not Detected (NotDetected); Influenza AH3,PCR Not Detected (NotDetected); Influenza B, PCR Not Detected (NotDetected); Mycoplasma Pneumoniae, PCR Not Detected (NotDetected); Parainfluenza 1, PCR Not Detected (NotDetected); Parainfluenza 2, PCR Not Detected (NotDetected); Parainfluenza 3, PCR Not Detected (NotDetected); Parainfluenza 4, PCR Not Detected (NotDetected); Respiratory Syncytial Virus Not Detected (NotDetected); Rhinovirus/Enterovirus Not Detected (NotDetected)
[2021-02-14 05:46] LABS: Procalcitonin 0.617 ng/mL (0.0-2.0)
[2021-02-14 06:01] LABS: NT Pro Brain Natriuretic Pep. 1270 pg/mL (0-450)
[2021-02-14 06:14] LABS: Creatine Kinase 347 U/L (55-170)
[2021-02-14 06:20] LABS: Appearance,Urine CLEAR (Clear); Bilirubin,Urine Negative (Negative); Blood, Urine Negative (Negative); Color,Urine YELLOW (Yellow); Glucose,Urine (UA) 3+ (Negative); Ketones,Urine TRACE (Negative); Leukocyte Esterase,Urine Negative (Negative); Microscopic, Urine URINE MICROSCOPIC (MICROSCOPIC); Nitrate,Urine Negative (Negative); Protein,Urine Negative (Negative); Urobilinogen,Urine 0.2 EU/dl (0.2)
[2021-02-14 06:22] LABS: Erythrocyte Sedimentation Rate 27 mm/hr (0-20)
[2021-02-14 06:26] LABS: Lymphocytes % 3 % (10-50); Monocytes % 4 % (2-9); Neutrophils % 93 % (42-76); Total Cells Counted 100
[2021-02-14 06:29] LABS: Macrocytosis 1+; Platelet Estimate Slight Increase
[2021-02-14 06:31] LABS: Acanthocytes 1+; Anisocytosis 1+
[2021-02-14 06:35] LABS: WBC,Urine Occasional #/hpf (0-3)
--- NOTE | 2021-02-14 06:36 | PC.NURSE ---
paged at this time
[2021-02-14 06:38] LABS: Barbiturates Screen,Urine Negative ng/ml (<200); Benzodiazepines Screen,Urine Negative ng/ml (<200)
[2021-02-14 06:39] LABS: Amphetamine/Metha Screen,Urine Negative ng/ml (<1000)
[2021-02-14 06:40] LABS: Cocaine Screen,Urine Negative ng/ml (<300); Methadone Screen,Urine Negative ng/ml (<300)
[2021-02-14 06:41] LABS: Cannabinoid Screen,Urine Negative ng/ml (<50)
[2021-02-14 06:42] LABS: Phencyclidine Screen,Urine Negative ng/ml (<25)
[2021-02-14 06:43] LABS: Opiate Screen,Urine Negative ng/ml (<300)
[2021-02-14 06:48] LABS: Acetone, Serum (Rapid) None Detected (None Detect)
--- NOTE | 2021-02-14 06:58 | PC.NURSE ---
supervisor fusing room notified of need for bed assignment.
--- NOTE | 2021-02-14 07:20 | PC.NURSE ---
PT GIVEN BREAKFAST TRAY
--- NOTE | 2021-02-14 07:45 | PC.NURSE ---
REPORT CALLED TO DIETER ALCANTAR
--- NOTE | 2021-02-14 08:23 | HMH.HP ---
*Admission Date: 02/14/21 *Chief complaint: Frequent falls, lower extremity weakness, Sirs *History of present illness: 80-year-old white male with history of diabetes, coronary disease, CHF who has been living by himself over the past couple of weeks as his is currently in a skilled care facility for rehabilitation from a patellar fracture. He notes that he has been visiting her frequently and has become extremely tired. Yesterday afternoon he had several falls and summoned the ambulance service to help him get up back into a chair a couple of times. He thought he would do well with a good night sleep, and went to bed but awoke around 1 AM this morning needing to urinate, in route to the bathroom fell again and was unable to get himself up. Ambulance service brought him to the emergency department. Thorough work-up in the emergency department revealed leukocytosis, fever on admission greater than 100 degrees. Otherwise chest x-ray, CT of head and other labs were essentially unrevealing. However, given frequent falls, weakness and SIRS criteria being met in the emergency department he was admitted for IV antibiotics, monitoring of cultures and further diagnostic testing. This morning the patient is pleasant, feels tired and weak in his legs but otherwise has no acute complaints. [facility] History I have reviewed the patient's past medical history: Yes Medical History: Reports:: Arrhythmia, Congestive Heart Failure, Coronary Artery Disease, Deep Vein Thrombosis, Diabetes Mellitus Type 2, Hyperlipidemia, Hypertension, Myocardial Infarction, Osteoporosis, Peripheral Artery Disease, Peripheral Vascular Disease, Seizures Denies:: Asthma, Atrial Fibrillation, Cancer, Chronic Obstructive Pulmonary Disease (COPD), Diabetes Mellitus Type 1, Gastroesophageal Reflux Disease(GERD), Gastrointestinal Bleed, Internal Pacemaker, Lung Disease, Kidney Stones, MRSA, Pulmonary Embolism, Renal Disease *Have you ever received a pneumonia vaccine?: Yes *Have you received a flu vaccine this season?: Yes Other Medical History: Reports: Arthritis, Cataracts, Glaucoma, Osteoporosis. Denies: Blood Transfusion Reaction, Fibromyalgia, Hypothyroidism, Thyroid Disease Laterality Cases: Bilateral: Myringotomy (Ear Tubes), Tonsillectomy, Other Other Surgeries: Yes: Angiogram, Cardiac Catheterization, Cardiac Surgery (quadruple bypass in 1994), Coronary Stent (heart and legs), Open Heart Surgery, Splenectomy, Other. No: Pacemaker Amputation: Yes (Left hallux partial amputation) Fractures: Yes - *Social History Smoking Status: Former smoker Tobacco Type: cigarettes #Yrs smoked (if former smoker): 25 Alcohol Intake: never Alcohol Intake Frequency:: other Substance Use Type: denies use *Occupational Status:: retired Housing: house Household Members: spouse *Travel in the last 8 weeks: None Family Hx:: Kidney Disease Review of Systems - Review of Systems Review of systems:: pertinent systems reviewed and negative unless documented below - *Neurologic Reports frequent falls, Reports weakness, Denies abnormal speech, Denies confusion, Denies localized weakness, Denies seizure-like activity Meds Home Medications Medication Instructions Recorded Confirmed Type aspirin 81 mg tablet,delayed 81 mg PO DAILY 10/25/17 02/14/21 History release folic acid 1 mg tablet 1 mg PO DAILY 10/25/17 02/14/21 History furosemide 40 mg tablet 40 mg PO DAILY 10/25/17 02/14/21 History omeprazole 20 mg tablet,delayed 20 mg PO DAILY tab 10/25/17 02/14/21 History release atorvastatin 80 mg tablet 80 mg PO DAILY 10/31/17 02/14/21 History gabapentin 300 mg capsule 300 mg PO Q8H 10/31/17 02/14/21 History celecoxib 200 mg capsule 200 mg PO DAILY 90 Days #90 01/23/18 02/14/21 History methotrexate sodium 2.5 mg tablet 20 mg PO WEEKLY 84 Days #96 01/23/18 02/14/21 History timolol 0.25 % eye drops 1 drp OPHTHALMIC BID 11/16/18 02/14/21 History insulin lispro 100 unit/mL 10 unit SQ QHS 01/16/19
[2021-02-14 08:50] LABS: Troponin I 0.02 ng/ml (0.00-0.034)
[2021-02-14 10:52] LABS: Thyroid Stimulating Hormone 0.54 uIU/mL (0.465-4.68)
[2021-02-14 11:08] LABS: Hemoglobin A1C 6.6 % (4.0-6.0)
[2021-02-14 11:12] LABS: Vitamin B12 > 1000 pg/mL (239-931)
[2021-02-14 11:16] LABS: 25-OH Vitamin D, Total 47.4 ng/mL (30-100)
--- NOTE | 2021-02-14 11:38 | P.CONPHA_ITS ---
[facility] Pharmacy VTE Monitoring - Patient Demographics Admission date: 02/14/21 Report Date: 02/14/21 Time: 11:38 Allergies/Adverse Reactions: Patient Allergies Penicillins Allergy (Severe, Verified 02/14/21 08:44) S-BLISTERING WELTS Height: 1.83 m Weight: 96.275 kg Patient Problems: Current Active Problems Leukocytosis (leucocytosis) (Acute) SIRS (systemic inflammatory response syndrome) (Acute) Multiple falls (Acute) Peripheral neuropathy (Acute) Right bundle branch block (Chronic) Diabetes mellitus (Chronic) - VTE Risk Labs: VTE Related Lab Results Hgb 13.9 g/dL (14.1-18.0) L 02/14/21 04:47 Hct 43.2 % (42.0-52.0) 02/14/21 04:47 Plt Count 475 K/mm3 (142-424) H 02/14/21 04:47 BUN 25 mg/dl (9-20) H 02/14/21 04:47 Creatinine 1.30 mg/dl (0.66-1.25) H 02/14/21 04:47 Estimated Creat Clear 63 mL/min (50-200) 02/14/21 04:47 Was VTE Risk Assessment Performed: Yes VTE Score: 5 VTE Risk Level: Low Risk - Prophylaxis Types of VTE Prophylaxis: TEDS Knee High, Pharmacological (XARELTO 2.5 MG BID AND ARMANI HOSE.) Location of Applied Device: Bilateral Lower Extremeties
[2021-02-14 12:03] LABS: POC Glucose,Bedside 123 (70-110)
[2021-02-14 12:34] LABS: Troponin I 0.02 ng/ml (0.00-0.034)
--- NOTE | 2021-02-14 15:04 | PC.NURSE ---
THIS RN PHONED DOMINGO REYES, PT TO INFORM ABOUT PT EVALUATION CONSULT. PER DOMINGO, HE WILL BE HERE THIS AFTERNOON.
[2021-02-14 16:28] LABS: POC Glucose,Bedside 151 (70-110)
--- NOTE | 2021-02-14 16:36 | PC.NURSE ---
Pt has been pleasant and cooperative this shift. A&O X4. No complaints of pain or SOA. Pt is on room air with sats. >90%. Lungs CTA. Skin is C/D/I. Generalized, non-pitting edema noted to BLE. Telemetry reveals NSR with a BBB. Pt ambulates with assistance X1 and uses the urinal to void clear, yellow urine without issue. No BM thus far this shift. Pt has sat up in the recliner for the majority of the day. FSBS results have been 123 and 151. 18 G peripheral IV in the LT AC is patent and infusing NS @ 100 ML/HR. VSS. Call light within reach. Will continue to monitor.
--- NOTE | 2021-02-14 18:02 | HMH.PTEV ---
Physical Therapy Evaluation Rehab PT IP Evaluation Start: 02/14/21 08:27 Freq: ONCE Status: Active Protocol: Document 02/14/21 17:57 DANUTA (Rec: 02/14/21 18:02 DANUTA [id number]) Subjective/History History History PT ADMITTED TO [facility] 80 YO MALE WITH MULTIPLE FALLS Subjective Subjective PT REPORTS FALLING ASLEEP AT HOME, WAKING UP, TRYING TO GET TO BATHROOM, 'AND MY LEGS JUST WOULDN'T WORK. THEY FELT LIKE JELLO'. Rehab PT IP Eval Objective Appearance Patient Behavior Appropriate,Cooperative Patient Orientation Person,Place,Time,Name,Age, Situation Difficulty following instructions none Speech Pattern Clear,Appropriate,Coherent Ambulation Patient Able to Ambulate Yes Ambulation Observation IP General Gait Pattern Observation No Deviations/Normal Ambulation Distance (feet) 30 Ambulation Assistive Device Rolling Walker Ambulation Ability Minimal x 1 (25% assist) Balance Ability to Arise Able, uses arms to help Sitting Balance Steady, safe Standing Balance Narrow stance w/o support Dynamic Sitting Balance Ability Normal Dynamic Standing Balance Ability Good Transfers Chair Transfer Ability Supervision/Stand by,Contact Guard/Hand Hold Sit to Stand Chair Transfer Ability Contact Guard/Hand Hold, Minimal x 1 (25% assist) ROM All Extremities PT ROM Status WFL MMT All Extremities PT MMT WFL Rehab PT IP prob,goals,plan Problems Date of Evaluation: 02/14/21 PT IP Problems Bed Mobility,Transfers,Gait, Balance Rehab Potential Rehab Potential Good Equipment Needs Assistive Devices None / NA Plan PT Intervention Plan Bed Mobility,Transfers,Gait, Balance PT Plan Frequency BID Duration LOS Discharge Goals Bed Transfer Ability Supervision/Stand by Sit to Stand Chair Transfer Ability Supervision/Stand by Ambulation Assistive Device Rolling Walker Ambulation Distance (feet) 50 Discharge Plan PT Discharge Plan PT TO D/C TO HOME W/EXECUTION OF REHAB GOALS G -code Required No Eval Complexity Eval Charge Codes 38496 - Low Complexity PHYSICIAN CERTIFICATION: I certify the specified therapy services for Ken Lea are required, authorized, and reviewed every
[2021-02-14 22:54] LABS: POC Glucose,Bedside 125 (70-110)
[2021-02-15] VITALS: PULSE 70
--- NOTE | 2021-02-15 03:18 | PC.NURSE ---
A&OX4. PT TOLERATING RA WELL. PT RECEIVING FLUIDS T/O SHIFT. PT STATES HE IS FEELING MUCH BETTER. PT STATED I HAVE BEEN RUNNING MYSELF LIKE CRAZY. I HAVEN'T BEEN EATING OR DRINKING RIGHT AND I HAVEN'T BEEN TAKING GOOD CARE OF MYSELF. I'M JUST WORRIED ABOUT MY . THIS NURSE REASSURED PT THAT HE HAS TO TAKE CARE OF HIMSELF IN ORDER TO BE THERE FOR HIS . PT HAS STOOD WITH WALKER, NO ISSUES. PT HAS ALSO SAT ON SIDE OF BED WITH EASE. PT RESTING WELL T/O MAJORITY OF SHIFT. VSS WILL CONTINUE TO MONITOR.
[2021-02-15 04:00] VITALS: BP 132/54; PULSE 70; PULSE 73; RESP 16; TEMP 37.3; O2SAT 90
--- NOTE | 2021-02-15 05:12 | PC.NURSE ---
ice passed trash and linens picked up. pt had no other needs.KSalenaM
[2021-02-15 05:29] VITALS: BMI 29.3
[2021-02-15 06:17] LABS: POC Glucose,Bedside 170 (70-110)
[2021-02-15 06:52] LABS: Basophils # 0.1 K/mm3 (0-0.2); Basophils % 0.4 % (0.1-2.0); Eosinophils # 0.2 K/mm3 (0.0-0.4); Eosinophils % 0.9 % (0.1-12.0); Hematocrit 37.9 % (42.0-52.0); Lymphocytes # 1.1 K/mm3 (0.7-4.5); Lymphocytes % 5.1 % (10-50); Mean Corpuscular HGB Conc 31.7 g/dL (31.8-35.4); Mean Corpuscular Hemoglobin 33.6 pg (27.0-31.2); Mean Corpuscular Volume 106.2 fl (80-94); Mean Platelet Volume 9.1 fl (7.4-10.4); Monocytes # 0.9 K/mm3 (0.1-1.0); Monocytes % 4.5 % (1.7-9.3); Neutrophils # 18.8 K/mm3 (1.8-7.8); Neutrophils % 89.1 % (37.0-80.0); Platelet Count 342 K/mm3 (142-424); Red Blood Count 3.57 M/mm3 (4.60-6.20); Red Cell Distribution Width 17.3 % (11.5-17.5); White Blood Count 21.1 K/mm3 (4.8-10.8)
[2021-02-15 07:00] LABS: Chloride 104 mmol/L (98-107); MANUAL DIFFERENTIAL MANUAL DIFFERENTIAL (MANUAL DIFF); Potassium 4.3 mmoL/L (3.5-5.1); Sodium 136 mmol/L (136-145)
[2021-02-15 07:03] LABS: Anion Gap 12.3 mEq/L (5-15); Blood Urea Nitrogen 18 mg/dl (9-20); Carbon Dioxide 24 mmol/L (22.0-30.0); Creatinine Clearance Estimated 83 mL/min (50-200); Estimated Glomerular Filt Rate 72 ml/min (>60); GFR (African American) 87 ML/MIN (>60)
[2021-02-15 07:04] LABS: Glucose 123 mg/dl (74-100)
[2021-02-15 07:15] LABS: Calcium 8.6 mg/dl (8.4-10.2)
--- NOTE | 2021-02-15 07:53 | HMH.DCSUM ---
General - General Admission date:: 02/14/21 Discharge date: 02/15/21 HPI HPI: 80-year-old white male with history of diabetes, coronary disease, CHF who has been living by himself over the past couple of weeks as his is currently in a skilled care facility for rehabilitation from a patellar fracture. He notes that he has been visiting her frequently and has become extremely tired. Yesterday afternoon he had several falls and summoned the ambulance service to help him get up back into a chair a couple of times. He thought he would do well with a good night sleep, and went to bed but awoke around 1 AM this morning needing to urinate, in route to the bathroom fell again and was unable to get himself up. Ambulance service brought him to the emergency department. Thorough work-up in the emergency department revealed leukocytosis, fever on admission greater than 100 degrees. Otherwise chest x-ray, CT of head and other labs were essentially unrevealing. However, given frequent falls, weakness and SIRS criteria being met in the emergency department he was admitted for IV antibiotics, monitoring of cultures and further diagnostic testing. This morning the patient is pleasant, feels tired and weak in his legs but otherwise has no acute complaints. Hospital Course Hospital Course: Patient was admitted to hospital. Leukocytosis and low-grade fever were noted. Fever work-up was undertaken, chest x-ray was clear, labs other than leukocytosis were essentially normal except for mild KERWIN which was treated and resolved with IV fluids. This morning the patient feels good, no oxygen requirement. Has been more energetic and has been up and around with his walker. His only new complaint is bilateral neck pain which he feels is from resting in an unusual hospital bed. Physical therapy evaluated him. He did well with the evaluation and he did not feel that he would need ongoing physical therapy but did recommend enhanced home safety devices with walker. Patient notes that he is not been drinking a lot of water over the past couple of weeks with his being in the custodial and spending most of the day there. He wishes to go home. I offered him another stay overnight while we wait for cultures but he wishes to be discharged home as his sister will be in town today to help him go home. 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 I have instructed him to drink a little bit more water over the next couple of days, he will use his walker at home, his sister and [id number] will be in town today to take him home and make sure he is in a safe environment. I will schedule a one-time hospital follow-up visit in my office on to make sure he is continuing to improve and go over his culture results from urine and blood. Objective Vital signs: Temp Pulse Resp BP Pulse Ox 99.2 F 73 16 132/54 L 90 L 02/15/21 04:00 02/15/21 04:00 02/15/21 04:00 02/15/21 04:00 02/15/21 04:00 no acute distress Comments: Pleasant, appears more energetic, up in a chair. Oriented x3. - *Routine HEENT Exam Head: Present: normocephalic Eye: Present: EOMI, PERRL ENT: Present: mucous membranes moist - *Routine Neck Exam Present: supple - *Routine Respiratory Exam Present: CTA bilaterally - *Routine Cardiovascular Exam Present: RRR - *Routine Abdominal Exam Present: soft, normoactive bowel sounds. Absent: tenderness - *Routine Extremities Exam Absent: cyanosis, clubbing, edema - *Routine Skin Exam Present: warm. Absent: rash - Detailed Eye Exam Eyelids: Bilateral normal inspection Results Labs on day of discharge: Labs from last 24 hours 02/15/21 02/15/21 02/15/21 06:18 06:18 06:05 WBC 21.1 H* RBC 3.57 L Hgb 12.0 L Hct 37.9 L MCV 106.2
[2021-02-15 08:00] VITALS: BP 133/68; PULSE 70; PULSE 77; RESP 18; TEMP 37.3; O2SAT 93
[2021-02-15 09:00] VITALS: O2SAT 93
[2021-02-15 09:11] LABS: Acanthocytes 1+; Anisocytosis 2+; Lymphocytes % 7 % (10-50); Macrocytosis 2+; Monocytes % 8 % (2-9); Neutrophils % 82 % (42-76); Platelet Estimate Normal; Poikilocytosis 1+; Total Cells Counted 100
[2021-02-15 09:12] LABS: Nucleated Red Blood Cells 1
[2021-02-15 12:00] VITALS: PULSE 50
[2021-02-15 13:18] LABS: POC Glucose,Bedside 110 (70-110)
[2021-04-06 11:28] LABS: POC Glucose,Bedside 128 (70-110)
== END 2021-02-15 13:25 | disposition home or self-care (01) | DRG 815 ==
LOC: ER 06:59 → 2ND 07:10
PROVIDERS: Admitting Provider Internal Medicine Adolescent Medicine; Emergency Provider Emergency Medicine; PCP Internal Medicine; Referring Provider Internal Medicine Adolescent Medicine; Visit Provider Internal Medicine Adolescent Medicine
DX: D72.825 Bandemia (principal); R65.10 Systemic inflammatory response syndrome (SIRS) of non-infectious origin without acute organ dysfunction; E11.40 Type 2 diabetes mellitus with diabetic neuropathy, unspecified; Z79.4 Long term (current) use of insulin; R29.6 Repeated falls; E78.5 Hyperlipidemia, unspecified; I25.2 Old myocardial infarction; I11.0 Hypertensive heart disease with heart failure; I50.9 Heart failure, unspecified; I25.10 Atherosclerotic heart disease of native coronary artery without angina pectoris; Z79.02 Long term (current) use of antithrombotics/antiplatelets; E03.9 Hypothyroidism, unspecified; Z95.828 Presence of other vascular implants and grafts; Z90.81 Acquired absence of spleen; Z79.899 Other long term (current) drug therapy; Z86.718 Personal history of other venous thrombosis and embolism
CPT/HCPCS: 36415; 70450; 71045; 72125; 72170; 80048; 80053; 80305; 81001; 82009; 82306; 82550; 82607; 82962; 83036; 83605; 83735; 83880; 84145; 84443; 84484; 85007; 85025; 85651; 86140; 87040; 87086; 87581; 87633; 87798; 93005; 96365; 96367; 97116; 97161; 97530; 99284; J1956

== ENCOUNTER → 2021-02-19 11:34 | Outpatient (CLI) | payer MEDICARE, SELFPAY ==
[2021-02-19 12:01] LABS: Basophils % 0.2 % (0.1-2.0); Eosinophils # 0.4 K/mm3 (0.0-0.4); Eosinophils % 2.1 % (0.1-12.0); Hematocrit 39.9 % (42.0-52.0); Hemoglobin 12.6 g/dL (14.1-18.0); Lymphocytes # 0.8 K/mm3 (0.7-4.5); Mean Corpuscular HGB Conc 31.7 g/dL (31.8-35.4); Mean Corpuscular Hemoglobin 33.4 pg (27.0-31.2); Mean Corpuscular Volume 105.6 fl (80-94); Mean Platelet Volume 8.7 fl (7.4-10.4); Monocytes # 0.3 K/mm3 (0.1-1.0); Monocytes % 1.7 % (1.7-9.3); Neutrophils % 90.9 % (37.0-80.0); Platelet Count 481 K/mm3 (142-424); Red Blood Count 3.78 M/mm3 (4.60-6.20); Red Cell Distribution Width 17.2 % (11.5-17.5); White Blood Count 16.5 K/mm3 (4.8-10.8)
[2021-02-19 12:27] LABS: MANUAL DIFFERENTIAL MANUAL DIFFERENTIAL (MANUAL DIFF)
[2021-02-19 12:41] LABS: Chloride 95 mmol/L (98-107); Potassium 5.4 mmoL/L (3.5-5.1); Sodium 131 mmol/L (136-145)
[2021-02-19 12:43] LABS: Alanine Aminotransferase 25 U/L (12-78); Aspartate Amino Transferase 51 U/L (17-59); Blood Urea Nitrogen 36 mg/dl (9-20); Estimated Glomerular Filt Rate 53 ml/min (>60); GFR (African American) 64 ML/MIN (>60)
[2021-02-19 12:44] LABS: Albumin Level 3.7 g/dl (3.5-5.0); Albumin/Globulin Ratio 1.3 (1.1-1.8); Alkaline Phosphatase 99 U/L (38-126); Anion Gap 15.4 mEq/L (5-15); Bilirubin,Total 0.9 mg/dl (0.2-1.3); Calcium 9.6 mg/dl (8.4-10.2); Carbon Dioxide 26 mmol/L (22.0-30.0); Globulin 2.8 g/dL (1.3-3.2); Glucose 117 mg/dl (74-100); Total Protein,Serum 6.5 g/dl (6.3-8.2)
[2021-02-19 14:33] LABS: Acanthocytes 1+; Anisocytosis 1+; Eosinophils % 2 % (0-3); Lymphocytes % 3 % (10-50); Macrocytosis 1+; Monocytes % 2 % (2-9); Neutrophils % 93 % (42-76); Platelet Estimate Slight Increase; Poikilocytosis 1+; Total Cells Counted 100
== END ==
PROVIDERS: Visit Provider Internal Medicine Adolescent Medicine
DX: R42 Dizziness and giddiness (principal); D72.829 Elevated white blood cell count, unspecified
CPT/HCPCS: 36415; 80053; 85007; 85025

== ENCOUNTER → 2021-03-05 11:14 | Outpatient (CLI) | payer MEDICARE, SELFPAY ==
--- NOTE | 2021-03-05 11:26 | XR_ITS ---
PROCEDURE: XR FOOT RT MIN 3V CLINICAL INDICATION: TYPE II DM,RT FOOT ULCER COMPARISON: CR [id number] XR foot wt bearing LT 3V from 02/13/2018 CR [id number] XR foot LT min 3V from 03/24/2018 CR [id number] XR foot LT 2V from 03/24/2018 CR [id number] XR foot wt bearing LT 3V from 04/13/2018 FINDINGS: Generalized osteopenia is noted. No acute fractures or dislocations. Bone density is normal. The tarsals, metatarsals and phalanges are unremarkable. Vascular calcification is noted. Calcaneal spurring is noted at the Achilles tendon insertion and the plantar fascia origin. IMPRESSION: Osteopenia. No acute fractures or dislocations. Dictated by: Valeria Cash 03/05/2021 14:21 Valeria Cash in [place] 03/05/2021 14:21
[2021-03-05 11:39] LABS: Basophils # 0.1 K/mm3 (0-0.2); Basophils % 1.5 % (0.1-2.0); Eosinophils # 0.4 K/mm3 (0.0-0.4); Hematocrit 41.5 % (42.0-52.0); Hemoglobin 13.2 g/dL (14.1-18.0); Lymphocytes # 1.1 K/mm3 (0.7-4.5); Mean Corpuscular HGB Conc 31.7 g/dL (31.8-35.4); Mean Corpuscular Hemoglobin 33.3 pg (27.0-31.2); Mean Corpuscular Volume 105.1 fl (80-94); Mean Platelet Volume 9.6 fl (7.4-10.4); Monocytes # 0.5 K/mm3 (0.1-1.0); Monocytes % 6.1 % (1.7-9.3); Neutrophils # 6.3 K/mm3 (1.8-7.8); Neutrophils % 74.5 % (37.0-80.0); Platelet Count 673 K/mm3 (142-424); Red Blood Count 3.95 M/mm3 (4.60-6.20); Red Cell Distribution Width 16.7 % (11.5-17.5); White Blood Count 8.5 K/mm3 (4.8-10.8)
[2021-03-05 12:34] LABS: Anion Gap 14.5 mEq/L (5-15); Blood Urea Nitrogen 25 mg/dl (9-20); Calcium 9.3 mg/dl (8.4-10.2); Carbon Dioxide 28 mmol/L (22.0-30.0); Chloride 96 mmol/L (98-107); Estimated Glomerular Filt Rate 65 ml/min (>60); GFR (African American) 78 ML/MIN (>60); Glucose 216 mg/dl (74-100); Potassium 5.5 mmoL/L (3.5-5.1); Sodium 133 mmol/L (136-145)
[2021-03-05 12:40] LABS: C-Reactive Protein 2.2 mg/L (0-4)
[2021-03-05 12:52] LABS: Erythrocyte Sedimentation Rate 38 mm/hr (0-20)
== END ==
PROVIDERS: Visit Provider Nurse Practitioner Family
DX: E11.621 Type 2 diabetes mellitus with foot ulcer (principal); L97.519 Non-pressure chronic ulcer of other part of right foot with unspecified severity; D72.829 Elevated white blood cell count, unspecified
CPT/HCPCS: 36415; 73630; 80048; 85025; 85651; 86140

== ENCOUNTER → 2021-04-27 15:53 | Outpatient (CLI) | payer MEDICARE, SELFPAY ==
--- NOTE | 2021-04-27 16:04 | XR_ITS ---
PROCEDURE: XR FOOT WT BEARING RT 3V CLINICAL INDICATION: right 4th toe ulcer COMPARISON: CR [id number] XR foot LT min 3V from 03/24/2018 CR [id number] XR foot LT 2V from 03/24/2018 CR [id number] XR foot wt bearing LT 3V from 04/13/2018 CR XR FOOT RT MIN 3V from 03/05/2021 FINDINGS: No fracture or dislocation. No lytic or blastic change. There is normal mineralization. There is diffuse vascular calcification. Osteoarthritic changes are present at the 1st MTP joint. Flexion deformity is present at the DIP joint of the 4th toe with dorsal subluxation of the middle phalanx. No obvious erosive change evident. There may be a small area of soft tissue gas along the sublux middle phalanx dorsally. This could be due to an open wound/ulcer or infection. Other findings:None. IMPRESSION: No convincing evidence of acute osteomyelitis. Flexion deformity is present at the DIP joint of the 4th toe with dorsal subluxation of the middle phalanx. No obvious erosive change evident. There may be a small area of soft tissue gas along the subluxed middle phalanx dorsally. This could be due to an open wound/ulcer or infection Dictated by: Elroy Fuchs MD 04/28/2021 07:49 Elroy Fuchs MD in [place] 04/28/2021 07:49
[2021-04-27 16:41] LABS: Basophils # 0.1 K/mm3 (0-0.2); Basophils % 1.5 % (0.1-2.0); Eosinophils # 0.6 K/mm3 (0.0-0.4); Eosinophils % 6.6 % (0.1-12.0); Hematocrit 41.6 % (42.0-52.0); Lymphocytes # 1.5 K/mm3 (0.7-4.5); Lymphocytes % 16.7 % (10-50); Mean Corpuscular HGB Conc 31.2 g/dL (31.8-35.4); Mean Corpuscular Hemoglobin 33.1 pg (27.0-31.2); Mean Corpuscular Volume 105.9 fl (80-94); Mean Platelet Volume 9.5 fl (7.4-10.4); Monocytes # 0.6 K/mm3 (0.1-1.0); Monocytes % 6.9 % (1.7-9.3); Neutrophils # 6.2 K/mm3 (1.8-7.8); Neutrophils % 68.3 % (37.0-80.0); Platelet Count 446 K/mm3 (142-424); Red Blood Count 3.93 M/mm3 (4.60-6.20); Red Cell Distribution Width 16.3 % (11.5-17.5); White Blood Count 9.1 K/mm3 (4.8-10.8)
[2021-04-27 16:54] LABS: Chloride 99 mmol/L (98-107); Potassium 5.2 mmoL/L (3.5-5.1); Sodium 138 mmol/L (136-145)
[2021-04-27 16:57] LABS: Alanine Aminotransferase 12 U/L (12-78); Albumin Level 4.4 g/dl (3.5-5.0); Albumin/Globulin Ratio 1.7 (1.1-1.8); Alkaline Phosphatase 74 U/L (38-126); Anion Gap 15.2 mEq/L (5-15); Aspartate Amino Transferase 26 U/L (17-59); Bilirubin,Total 0.7 mg/dl (0.2-1.3); Blood Urea Nitrogen 31 mg/dl (9-20); Carbon Dioxide 29 mmol/L (22.0-30.0); Estimated Glomerular Filt Rate 65 ml/min (>60); GFR (African American) 78 ML/MIN (>60); Globulin 2.6 g/dL (1.3-3.2)
[2021-04-27 16:58] LABS: Calcium 9.7 mg/dl (8.4-10.2); Glucose 108 mg/dl (74-100)
[2021-04-27 17:13] LABS: Erythrocyte Sedimentation Rate 27 mm/hr (0-20)
[2021-04-28 18:36] LABS: C-Reactive Protein 0.4 mg/L (0-4)
== END ==
PROVIDERS: Visit Provider Nurse Practitioner
DX: L08.9 Local infection of the skin and subcutaneous tissue, unspecified (principal); Z51.89 Encounter for other specified aftercare; M79.671 Pain in right foot
CPT/HCPCS: 36415; 73630; 80053; 85025; 85651; 86140

== ENCOUNTER → 2021-06-02 09:39 | Outpatient (CLI) | payer MEDICARE, SELFPAY ==
[2021-06-02 10:23] LABS: Basophils # 0.1 K/mm3 (0-0.2); Basophils % 1.6 % (0.1-2.0); Eosinophils # 0.7 K/mm3 (0.0-0.4); Eosinophils % 8.8 % (0.1-12.0); Hematocrit 40.6 % (42.0-52.0); Hemoglobin 12.9 g/dL (14.1-18.0); Lymphocytes # 1.5 K/mm3 (0.7-4.5); Lymphocytes % 20.1 % (10-50); Mean Corpuscular HGB Conc 31.8 g/dL (31.8-35.4); Mean Corpuscular Hemoglobin 34.3 pg (27.0-31.2); Mean Corpuscular Volume 107.9 fl (80-94); Mean Platelet Volume 9.5 fl (7.4-10.4); Monocytes # 0.7 K/mm3 (0.1-1.0); Monocytes % 9.2 % (1.7-9.3); Neutrophils # 4.5 K/mm3 (1.8-7.8); Neutrophils % 60.3 % (37.0-80.0); Platelet Count 441 K/mm3 (142-424); Red Blood Count 3.76 M/mm3 (4.60-6.20); Red Cell Distribution Width 16.7 % (11.5-17.5); White Blood Count 7.5 K/mm3 (4.8-10.8)
--- NOTE | 2021-06-02 10:34 | MR_ITS ---
PROCEDURE INFORMATION: Exam: MR Right Lower Extremity Other Than Joint Without and With Contrast; Foot Exam date and time: 06/02/2021 10:34 AM Age: 80 years old Clinical indication: Condition or disease; Other: Non healing ulcer; Patient HX: Non headling dm ulcer on 4th toe. Been [id number]. 19ml prohance given. Lot: [id number] exp: Oct 2023 bun: 35 cre: 1.3 gfr: 53 prior x-ray 04-27-21; Additional info: Non healing dm ulcer 4th toe TECHNIQUE: Imaging protocol: MR of the Right lower extremity without and with intravenous contrast. Exam focused on the foot. Contrast material: PROHANCE; Contrast volume: 19 ml; Contrast route: IV; COMPARISON: 1. CR XR FOOT WT BEARING RT 3V 04/27/2021 4:04 PM 2. CR XR FOOT RT MIN 3V 03/05/2021 11:32 AM FINDINGS: Limitations: The large [id number] utilized to image the entire foot and ankle results in proportionally lower anatomic detail, particularly in the symptomatic region of the fourth toe. Inhomogeneous fat suppression complicates assessment for enhancement on post gadolinium sequences. Bones and cartilage: Abnormal signal involving the marrow space of the middle and distal phalanges of the fourth toe is demonstrated on both T1 weighted and fluid sensitive sequences, as well as demonstrating abnormal enhancement, consistent with osteomyelitis. There are moderate dorsal and plantar calcaneal enthesophytes. There is no acute fracture or dislocation. Joint spaces: No significant joint effusion. LIGAMENTS: Lisfranc ligament: Unremarkable. No evidence of tear. TENDONS: Flexor tendons of foot: Unremarkable. No evidence of tear. Tibialis posterior tendon: Unremarkable as visualized. Peroneal tendons: Unremarkable as visualized. Extensor tendons of foot: Unremarkable. No evidence of tear. Tibialis anterior tendon: Unremarkable as visualized. Tarsal canal (Sinus tarsi): Unremarkable. Tarsal tunnel: Unremarkable. Muscles: The musculature demonstrates moderate edema and severe atrophy. Soft tissues: A soft tissue ulcer is located along the dorsal aspect of the fourth toe. There is prominent adjacent soft tissue edema in this region that is presumed to represent infected tissue. There is no organized discrete fluid signal intensity focus to suggest a drainable abscess. Previously suggested soft tissue gas cannot be appreciated on this large field of view study. Severe soft tissue edema involving the lower leg through foot may represent cellulitis or vascular insufficiency. Plantar fascia: Moderate thickening of the proximal plantar fascia has no significant surrounding edema, consistent with chronic moderate plantar fasciitis (fasciopathy). IMPRESSION: 1. 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 2. Soft tissue ulcer involving the fourth toe without a discrete abscess. 3. Severe soft tissue edema from the lower leg through foot suggesting cellulitis or vascular insufficiency.
[2021-06-02 10:43] LABS: Chloride 99 mmol/L (98-107); Potassium 5.7 mmoL/L (3.5-5.1); Sodium 138 mmol/L (136-145)
[2021-06-02 10:46] LABS: Alanine Aminotransferase 15 U/L (12-78); Albumin Level 4.2 g/dl (3.5-5.0); Albumin/Globulin Ratio 1.7 (1.1-1.8); Alkaline Phosphatase 83 U/L (38-126); Anion Gap 14.7 mEq/L (5-15); Aspartate Amino Transferase 24 U/L (17-59); Bilirubin,Total 0.5 mg/dl (0.2-1.3); Blood Urea Nitrogen 35 mg/dl (9-20); Carbon Dioxide 30 mmol/L (22.0-30.0); Estimated Glomerular Filt Rate 53 ml/min (>60); GFR (African American) 64 ML/MIN (>60); Globulin 2.5 g/dL (1.3-3.2); Total Protein,Serum 6.7 g/dl (6.3-8.2)
[2021-06-02 10:47] LABS: Calcium 9.5 mg/dl (8.4-10.2); Glucose 149 mg/dl (74-100)
[2021-06-02 10:51] LABS: Erythrocyte Sedimentation Rate 27 mm/hr (0-20)
[2021-06-02 10:52] LABS: C-Reactive Protein 0.5 mg/L (0-4)
== END ==
PROVIDERS: Visit Provider Podiatrist
DX: L03.90 Cellulitis, unspecified (principal); Z51.89 Encounter for other specified aftercare; L97.512 Non-pressure chronic ulcer of other part of right foot with fat layer exposed
CPT/HCPCS: 73720; 80053; 85025; 85651; 86140; A9576

== ENCOUNTER → 2021-06-09 15:22 | Outpatient (CLI) | payer MEDICARE, SELFPAY ==
--- NOTE | 2021-06-09 15:24 | US_ITS ---
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: Alyssa Morrell RVT Indications Non-healing Ulcer: Right PAD History of Smoking CAD PT HAS NON-HEALING ULCER RT 4TH TOE, ALL LT TOES HAVE BEEN AMPUTATED Risk Factors History of PAD: Hypertension CAD Hyperlipidemia Cardiac Disease Diabetes History of Smoking Surgery/Intervention PTCA : Site : RT FEMORAL Stent : Pressures/Indices Right Indices Left Indices Brachial 120.00 mmHg Brachial 125.00 mmHg Low Thigh 231.00 mmHg 1.85 Low Thigh 255.00 mmHg 0.00 Calf 255.00 mmHg 0.00 Calf 255.00 mmHg 0.00 Ankle(PT) 102.00 mmHg 0.82 Ankle(PT) 91.00 mmHg 0.73 Ankle(DP) 255.00 mmHg 0.00 Ankle(DP) 93.00 mmHg 0.74 Digit 87.00 mmHg 0.70 Digit Findings RT STANISLAV:0.82 LT STANISLAV:0.74 RT TBI:0.70 LT TBI:PRIOR AMPUTATION OF ALL TOES DAMPANED PULSES BILATERAL DAMPANED WAVEFORMS BILATERAL Conclusion RT STANISLAV:0.82 LT STANISLAV:0.74 RT TBI:0.70 LT TBI:PRIOR AMPUTATION OF ALL TOES DAMPANED PULSES BILATERAL DAMPANED WAVEFORMS BILATERAL Moderate arterial disease Electronically signed by : Elroy Fuchs MD 06/09/2021 16:54:26
== END ==
PROVIDERS: PCP Internal Medicine; Visit Provider Nurse Practitioner
DX: R09.89 Other specified symptoms and signs involving the circulatory and respiratory systems (principal)
CPT/HCPCS: 93923

== ENCOUNTER 2021-06-11 08:10 | Outpatient (CLI) | payer MEDICARE, SELFPAY ==
[2021-06-11 11:19] VITALS: BP 106/50; PULSE 55; RESP 20; TEMP 36.4; O2SAT 99
[2021-06-11 11:49] VITALS: BP 122/61; PULSE 58; RESP 20; O2SAT 99
[2021-06-11 12:25] VITALS: BP 114/49; PULSE 59; RESP 20; O2SAT 98
--- NOTE | 2021-06-11 16:48 | PC.NURSE ---
PT CAME IN FOR PICC LINE PLACEMENT AND IV ABX; ATTEMPTED PICC X4 STICKS NOT SUCCESSFUL ON THE LEFT SIDE; SPOKE WITH MD AND STARTED A PERIPHERAL LINE AND WE WILL GIVE ABX WITH THAT UNTIL TUESDAY WE ARE GOING TO HAVE PATIENT RETURN IN THE AFTERNOON THAT DAY AFTER AND ATTEMPT PICC LINE AGAIN.
== END 2021-06-11 12:25 | disposition home or self-care (01) ==
LOC: INF 08:10
PROVIDERS: Visit Provider Podiatrist
DX: L97.514 Non-pressure chronic ulcer of other part of right foot with necrosis of bone (principal); M86.171 Other acute osteomyelitis, right ankle and foot
CPT/HCPCS: 96365; C1751; J0878

== ENCOUNTER → 2021-06-12 14:41 | Outpatient (CLI) | payer MEDICARE, SELFPAY ==
[2021-06-12 15:09] LABS: Alanine Aminotransferase 14 U/L (12-78); Albumin Level 4.1 g/dl (3.5-5.0); Albumin/Globulin Ratio 1.6 (1.1-1.8); Alkaline Phosphatase 82 U/L (38-126); Anion Gap 15.8 mEq/L (5-15); Aspartate Amino Transferase 23 U/L (17-59); Bilirubin,Total 0.9 mg/dl (0.2-1.3); Blood Urea Nitrogen 26 mg/dl (9-20); Calcium 9.1 mg/dl (8.4-10.2); Carbon Dioxide 29 mmol/L (22.0-30.0); Chloride 97 mmol/L (98-107); Creatine Kinase 24 U/L (55-170); Estimated Glomerular Filt Rate 81 ml/min (>60); GFR (African American) 98 ML/MIN (>60); Globulin 2.5 g/dL (1.3-3.2); Glucose 117 mg/dl (74-100); Potassium 4.8 mmoL/L (3.5-5.1); Sodium 137 mmol/L (136-145); Total Protein,Serum 6.6 g/dl (6.3-8.2)
[2021-06-12 15:15] LABS: C-Reactive Protein 61.1 mg/L (0-4)
== END ==
PROVIDERS: Visit Provider Podiatrist
DX: L03.031 Cellulitis of right toe (principal); M86.9 Osteomyelitis, unspecified; L97.514 Non-pressure chronic ulcer of other part of right foot with necrosis of bone
CPT/HCPCS: 80053; 82550; 86140

== ENCOUNTER → 2021-06-16 13:06 | Outpatient (CLI) | payer MEDICARE, SELFPAY ==
[2021-06-16 13:40] VITALS: BMI 25.9
--- NOTE | 2021-06-16 13:42 | XR_ITS ---
PROCEDURE: XR CHEST PORTABLE CLINICAL HISTORY: picc placement COMPARISON: CR CXR2V XR chest 2V from 12/27/2017 CR [id number] XR chest portable from 01/06/2018 CR XR CHEST PORTABLE from 02/14/2021 FINDINGS: Left upper extremity PICC line has been placed and is in good position with the tip at the SVC region. There has been a prior CABG. Lungs are clear. Mild degenerative changes of the shoulders IMPRESSION: Left upper extremity PICC line tip in good position in the SVC Dictated by: Elroy Fuchs MD 06/16/2021 13:57 Elroy Fuchs MD in [place] 06/16/2021 13:57
[2021-06-16 14:16] LABS: Chloride 95 mmol/L (98-107); Potassium 4.8 mmoL/L (3.5-5.1); Sodium 134 mmol/L (136-145)
[2021-06-16 14:17] LABS: Basophils # 0.1 K/mm3 (0-0.2); Basophils % 0.9 % (0.1-2.0); Eosinophils # 0.7 K/mm3 (0.0-0.4); Eosinophils % 7.8 % (0.1-12.0); Hematocrit 37.1 % (42.0-52.0); Hemoglobin 11.9 g/dL (14.1-18.0); Lymphocytes # 1.2 K/mm3 (0.7-4.5); Lymphocytes % 12.6 % (10-50); Mean Corpuscular HGB Conc 32.1 g/dL (31.8-35.4); Monocytes # 0.8 K/mm3 (0.1-1.0); Monocytes % 8.8 % (1.7-9.3); Neutrophils # 6.4 K/mm3 (1.8-7.8); Neutrophils % 69.9 % (37.0-80.0); Platelet Count 443 K/mm3 (142-424); Red Cell Distribution Width 15.8 % (11.5-17.5); White Blood Count 9.1 K/mm3 (4.8-10.8)
[2021-06-16 14:19] LABS: Alanine Aminotransferase 14 U/L (12-78); Albumin Level 3.7 g/dl (3.5-5.0); Albumin/Globulin Ratio 1.2 (1.1-1.8); Alkaline Phosphatase 81 U/L (38-126); Anion Gap 16.8 mEq/L (5-15); Aspartate Amino Transferase 28 U/L (17-59); Bilirubin,Total 0.6 mg/dl (0.2-1.3); Blood Urea Nitrogen 31 mg/dl (9-20); Calcium 9.1 mg/dl (8.4-10.2); Carbon Dioxide 27 mmol/L (22.0-30.0); Creatine Kinase 53 U/L (55-170); Creatinine Clearance Estimated 60 mL/min (50-200); Estimated Glomerular Filt Rate 58 ml/min (>60); GFR (African American) 70 ML/MIN (>60); Globulin 3.1 g/dL (1.3-3.2); Glucose 205 mg/dl (74-100); Total Protein,Serum 6.8 g/dl (6.3-8.2)
[2021-06-16 14:25] LABS: C-Reactive Protein 60.4 mg/L (0-4)
[2021-06-16 15:49] LABS: Erythrocyte Sedimentation Rate 112 mm/hr (0-20)
== END ==
PROVIDERS: PCP Internal Medicine; Visit Provider Podiatrist
DX: M72.6 Necrotizing fasciitis (principal)
CPT/HCPCS: 36569; 71045; 80053; 82550; 85025; 85651; 86140; C1751

== ENCOUNTER → 2021-06-22 15:19 | Outpatient (CLI) | payer MEDICARE, SELFPAY ==
[2021-06-22 15:39] LABS: Chloride 95 mmol/L (98-107); Potassium 5.2 mmoL/L (3.5-5.1); Sodium 134 mmol/L (136-145)
[2021-06-22 15:41] LABS: Alanine Aminotransferase 19 U/L (12-78); Aspartate Amino Transferase 54 U/L (17-59); Blood Urea Nitrogen 34 mg/dl (9-20); Estimated Glomerular Filt Rate 72 ml/min (>60); GFR (African American) 87 ML/MIN (>60)
[2021-06-22 15:42] LABS: Albumin Level 3.8 g/dl (3.5-5.0); Albumin/Globulin Ratio 1.2 (1.1-1.8); Alkaline Phosphatase 81 U/L (38-126); Anion Gap 15.2 mEq/L (5-15); Bilirubin,Total 0.4 mg/dl (0.2-1.3); Calcium 9.3 mg/dl (8.4-10.2); Carbon Dioxide 29 mmol/L (22.0-30.0); Creatine Kinase 333 U/L (55-170); Globulin 3.2 g/dL (1.3-3.2); Glucose 106 mg/dl (74-100)
[2021-06-22 16:14] LABS: Basophils # 0.1 K/mm3 (0-0.2); Basophils % 1.2 % (0.1-2.0); Eosinophils # 0.5 K/mm3 (0.0-0.4); Eosinophils % 6.3 % (0.1-12.0); Hematocrit 38.6 % (42.0-52.0); Hemoglobin 12.2 g/dL (14.1-18.0); Lymphocytes # 1.3 K/mm3 (0.7-4.5); Lymphocytes % 14.4 % (10-50); Mean Corpuscular HGB Conc 31.7 g/dL (31.8-35.4); Mean Corpuscular Hemoglobin 34.7 pg (27.0-31.2); Mean Corpuscular Volume 109.7 fl (80-94); Mean Platelet Volume 11.2 fl (7.4-10.4); Monocytes # 0.6 K/mm3 (0.1-1.0); Monocytes % 6.7 % (1.7-9.3); Neutrophils # 6.2 K/mm3 (1.8-7.8); Neutrophils % 71.4 % (37.0-80.0); Platelet Count 519 K/mm3 (142-424); Red Blood Count 3.52 M/mm3 (4.60-6.20); Red Cell Distribution Width 15.6 % (11.5-17.5); White Blood Count 8.6 K/mm3 (4.8-10.8)
[2021-06-22 16:39] LABS: Erythrocyte Sedimentation Rate 91 mm/hr (0-20)
== END ==
PROVIDERS: Visit Provider Podiatrist
DX: L97.512 Non-pressure chronic ulcer of other part of right foot with fat layer exposed (principal); L03.90 Cellulitis, unspecified
CPT/HCPCS: 80053; 82550; 85025; 85651; 86140

== ENCOUNTER → 2021-06-25 12:22 | Outpatient (CLI) | payer MEDICARE, SELFPAY ==
[2021-06-25 12:45] LABS: Basophils # 0.2 K/mm3 (0-0.2); Basophils % 1.4 % (0.1-2.0); Eosinophils # 0.6 K/mm3 (0.0-0.4); Eosinophils % 5.1 % (0.1-12.0); Hematocrit 38.9 % (42.0-52.0); Hemoglobin 12.4 g/dL (14.1-18.0); Lymphocytes # 1.5 K/mm3 (0.7-4.5); Lymphocytes % 12.9 % (10-50); Mean Corpuscular Hemoglobin 34.5 pg (27.0-31.2); Mean Corpuscular Volume 107.9 fl (80-94); Mean Platelet Volume 9.8 fl (7.4-10.4); Monocytes # 0.7 K/mm3 (0.1-1.0); Monocytes % 5.8 % (1.7-9.3); Neutrophils # 8.6 K/mm3 (1.8-7.8); Neutrophils % 74.7 % (37.0-80.0); Platelet Count 598 K/mm3 (142-424); Red Blood Count 3.61 M/mm3 (4.60-6.20); Red Cell Distribution Width 15.5 % (11.5-17.5); White Blood Count 11.4 K/mm3 (4.8-10.8)
[2021-06-25 12:53] LABS: Chloride 99 mmol/L (98-107)
[2021-06-25 12:54] LABS: Potassium 4.6 mmoL/L (3.5-5.1); Sodium 139 mmol/L (136-145)
[2021-06-25 12:56] LABS: Alanine Aminotransferase 32 U/L (12-78); Aspartate Amino Transferase 60 U/L (17-59); Blood Urea Nitrogen 32 mg/dl (9-20); Estimated Glomerular Filt Rate 64 ml/min (>60); GFR (African American) 78 ML/MIN (>60)
[2021-06-25 12:57] LABS: Albumin Level 3.9 g/dl (3.5-5.0); Albumin/Globulin Ratio 1.3 (1.1-1.8); Alkaline Phosphatase 94 U/L (38-126); Anion Gap 15.6 mEq/L (5-15); Bilirubin,Total 0.3 mg/dl (0.2-1.3); Calcium 9.3 mg/dl (8.4-10.2); Carbon Dioxide 29 mmol/L (22.0-30.0); Creatine Kinase 397 U/L (55-170); Glucose 107 mg/dl (74-100); Total Protein,Serum 6.9 g/dl (6.3-8.2)
[2021-06-25 13:03] LABS: C-Reactive Protein 4.5 mg/L (0-4)
[2021-06-25 13:10] LABS: Erythrocyte Sedimentation Rate 84 mm/hr (0-20)
== END ==
PROVIDERS: Visit Provider Podiatrist
DX: L03.031 Cellulitis of right toe (principal); L97.514 Non-pressure chronic ulcer of other part of right foot with necrosis of bone; M86.9 Osteomyelitis, unspecified
CPT/HCPCS: 80053; 82550; 85025; 85651; 86140

== ENCOUNTER → 2021-06-30 12:50 | Outpatient (CLI) | payer MEDICARE, SELFPAY ==
[2021-06-30 13:15] LABS: Basophils # 0.1 K/mm3 (0-0.2); Basophils % 1.2 % (0.1-2.0); Eosinophils # 0.7 K/mm3 (0.0-0.4); Hematocrit 38.8 % (42.0-52.0); Hemoglobin 12.1 g/dL (14.1-18.0); Lymphocytes # 1.2 K/mm3 (0.7-4.5); Lymphocytes % 13.7 % (10-50); Mean Corpuscular HGB Conc 31.3 g/dL (31.8-35.4); Mean Corpuscular Hemoglobin 34.2 pg (27.0-31.2); Mean Corpuscular Volume 109.5 fl (80-94); Mean Platelet Volume 9.9 fl (7.4-10.4); Monocytes # 0.5 K/mm3 (0.1-1.0); Monocytes % 6.1 % (1.7-9.3); Neutrophils # 6.3 K/mm3 (1.8-7.8); Neutrophils % 70.9 % (37.0-80.0); Platelet Count 570 K/mm3 (142-424); Red Blood Count 3.54 M/mm3 (4.60-6.20); White Blood Count 8.9 K/mm3 (4.8-10.8)
[2021-06-30 13:26] LABS: Alanine Aminotransferase 25 U/L (12-78); Albumin Level 3.7 g/dl (3.5-5.0); Albumin/Globulin Ratio 1.3 (1.1-1.8); Alkaline Phosphatase 80 U/L (38-126); Anion Gap 12.8 mEq/L (5-15); Aspartate Amino Transferase 44 U/L (17-59); Bilirubin,Total 0.4 mg/dl (0.2-1.3); Blood Urea Nitrogen 38 mg/dl (9-20); Calcium 9.1 mg/dl (8.4-10.2); Carbon Dioxide 30 mmol/L (22.0-30.0); Chloride 95 mmol/L (98-107); Creatine Kinase 186 U/L (55-170); Estimated Glomerular Filt Rate 53 ml/min (>60); GFR (African American) 64 ML/MIN (>60); Globulin 2.9 g/dL (1.3-3.2); Glucose 116 mg/dl (74-100); Potassium 4.8 mmoL/L (3.5-5.1); Sodium 133 mmol/L (136-145); Total Protein,Serum 6.6 g/dl (6.3-8.2)
[2021-06-30 13:32] LABS: C-Reactive Protein 1.8 mg/L (0-4)
[2021-06-30 13:47] LABS: Erythrocyte Sedimentation Rate 50 mm/hr (0-20)
== END ==
PROVIDERS: Visit Provider Podiatrist
DX: E11.9 Type 2 diabetes mellitus without complications (principal); L03.90 Cellulitis, unspecified; Z51.89 Encounter for other specified aftercare; Z79.84 Long term (current) use of oral hypoglycemic drugs
CPT/HCPCS: 80053; 82550; 85025; 85651; 86140

== ENCOUNTER → 2021-07-06 10:34 | Outpatient (CLI) | payer MEDICARE, SELFPAY ==
[2021-07-06 10:49] LABS: Basophils # 0.1 K/mm3 (0-0.2); Basophils % 1.2 % (0.1-2.0); Eosinophils # 0.7 K/mm3 (0.0-0.4); Eosinophils % 8.9 % (0.1-12.0); Hematocrit 37.9 % (42.0-52.0); Hemoglobin 12.2 g/dL (14.1-18.0); Lymphocytes # 1.5 K/mm3 (0.7-4.5); Lymphocytes % 18.2 % (10-50); Mean Corpuscular Hemoglobin 34.6 pg (27.0-31.2); Mean Corpuscular Volume 108.1 fl (80-94); Mean Platelet Volume 9.4 fl (7.4-10.4); Monocytes # 0.6 K/mm3 (0.1-1.0); Monocytes % 7.1 % (1.7-9.3); Neutrophils # 5.1 K/mm3 (1.8-7.8); Neutrophils % 64.5 % (37.0-80.0); Platelet Count 472 K/mm3 (142-424); Red Blood Count 3.51 M/mm3 (4.60-6.20); Red Cell Distribution Width 15.9 % (11.5-17.5); White Blood Count 7.9 K/mm3 (4.8-10.8)
[2021-07-06 11:12] LABS: Chloride 98 mmol/L (98-107); Sodium 133 mmol/L (136-145)
[2021-07-06 11:14] LABS: Alanine Aminotransferase 24 U/L (12-78); Aspartate Amino Transferase 51 U/L (17-59); Blood Urea Nitrogen 28 mg/dl (9-20); Estimated Glomerular Filt Rate 72 ml/min (>60); GFR (African American) 87 ML/MIN (>60)
[2021-07-06 11:15] LABS: Albumin Level 3.6 g/dl (3.5-5.0); Albumin/Globulin Ratio 1.6 (1.1-1.8); Alkaline Phosphatase 80 U/L (38-126); Bilirubin,Total 0.5 mg/dl (0.2-1.3); Calcium 9.1 mg/dl (8.4-10.2); Carbon Dioxide 28 mmol/L (22.0-30.0); Creatine Kinase 354 U/L (55-170); Globulin 2.3 g/dL (1.3-3.2); Glucose 84 mg/dl (74-100); Total Protein,Serum 5.9 g/dl (6.3-8.2)
[2021-07-06 11:21] LABS: C-Reactive Protein 0.8 mg/L (0-4)
[2021-07-06 11:44] LABS: Erythrocyte Sedimentation Rate 43 mm/hr (0-20)
== END ==
LOC: LAB 10:34 → LAB.DROPOF 10:35
PROVIDERS: Visit Provider Podiatrist
DX: L03.031 Cellulitis of right toe (principal); L97.514 Non-pressure chronic ulcer of other part of right foot with necrosis of bone; M86.9 Osteomyelitis, unspecified
CPT/HCPCS: 80053; 82550; 85025; 85651; 86140

== ENCOUNTER → 2021-07-13 13:06 | Outpatient (CLI) | payer MEDICARE, SELFPAY ==
[2021-07-13 13:40] LABS: Basophils # 0.1 K/mm3 (0-0.2); Basophils % 1.6 % (0.1-2.0); Eosinophils # 0.7 K/mm3 (0.0-0.4); Eosinophils % 8.7 % (0.1-12.0); Hematocrit 39.5 % (42.0-52.0); Hemoglobin 12.5 g/dL (14.1-18.0); Lymphocytes # 1.5 K/mm3 (0.7-4.5); Lymphocytes % 19.9 % (10-50); Mean Corpuscular HGB Conc 31.6 g/dL (31.8-35.4); Mean Corpuscular Hemoglobin 34.4 pg (27.0-31.2); Mean Platelet Volume 9.5 fl (7.4-10.4); Monocytes # 0.6 K/mm3 (0.1-1.0); Monocytes % 8.7 % (1.7-9.3); Neutrophils # 4.5 K/mm3 (1.8-7.8); Platelet Count 412 K/mm3 (142-424); Red Blood Count 3.62 M/mm3 (4.60-6.20); Red Cell Distribution Width 16.2 % (11.5-17.5); White Blood Count 7.4 K/mm3 (4.8-10.8)
[2021-07-13 13:42] LABS: Chloride 95 mmol/L (98-107); Sodium 134 mmol/L (136-145)
[2021-07-13 13:43] LABS: Potassium 4.3 mmoL/L (3.5-5.1)
[2021-07-13 13:45] LABS: Alanine Aminotransferase 21 U/L (12-78); Alkaline Phosphatase 80 U/L (38-126); Anion Gap 14.3 mEq/L (5-15); Aspartate Amino Transferase 34 U/L (17-59); Bilirubin,Total 0.5 mg/dl (0.2-1.3); Blood Urea Nitrogen 31 mg/dl (9-20); Calcium 9.5 mg/dl (8.4-10.2); Carbon Dioxide 29 mmol/L (22.0-30.0); Creatine Kinase 51 U/L (55-170); Estimated Glomerular Filt Rate 58 ml/min (>60); GFR (African American) 70 ML/MIN (>60); Glucose 107 mg/dl (74-100)
[2021-07-13 13:46] LABS: Albumin/Globulin Ratio 1.4 (1.1-1.8); Globulin 2.9 g/dL (1.3-3.2); Total Protein,Serum 6.9 g/dl (6.3-8.2)
[2021-07-13 14:05] LABS: Erythrocyte Sedimentation Rate 45 mm/hr (0-20)
== END ==
LOC: LAB 13:07 → LAB.DROPOF 13:25
PROVIDERS: Visit Provider Podiatrist
DX: L03.031 Cellulitis of right toe (principal); L97.514 Non-pressure chronic ulcer of other part of right foot with necrosis of bone; M86.9 Osteomyelitis, unspecified
CPT/HCPCS: 80053; 82550; 85025; 85651; 86140; 87186

== ENCOUNTER 2021-07-14 16:14 | Outpatient (CLI) | payer MEDICARE, SELFPAY | END 2021-07-14 16:27 | disposition home or self-care (01) | LOC: INF 16:17 | PROVIDERS: PCP Internal Medicine; Visit Provider Podiatrist | DX: L03.031 Cellulitis of right toe (principal); L97.514 Non-pressure chronic ulcer of other part of right foot with necrosis of bone; M86.9 Osteomyelitis, unspecified; Z45.2 Encounter for adjustment and management of vascular access device | CPT/HCPCS: G0463 ==

== ENCOUNTER → 2021-07-20 15:09 | Outpatient (CLI) | payer MEDICARE, SELFPAY ==
[2021-07-20 15:27] LABS: Basophils # 0.1 K/mm3 (0-0.2); Basophils % 1.1 % (0.1-2.0); Eosinophils # 0.4 K/mm3 (0.0-0.4); Eosinophils % 5.4 % (0.1-12.0); Hematocrit 37.9 % (42.0-52.0); Hemoglobin 12.4 g/dL (14.1-18.0); Lymphocytes # 1.3 K/mm3 (0.7-4.5); Lymphocytes % 16.5 % (10-50); Mean Corpuscular HGB Conc 32.8 g/dL (31.8-35.4); Mean Corpuscular Hemoglobin 34.9 pg (27.0-31.2); Mean Corpuscular Volume 106.5 fl (80-94); Mean Platelet Volume 10.6 fl (7.4-10.4); Monocytes # 0.6 K/mm3 (0.1-1.0); Neutrophils # 5.7 K/mm3 (1.8-7.8); Platelet Count 426 K/mm3 (142-424); Red Blood Count 3.55 M/mm3 (4.60-6.20); Red Cell Distribution Width 16.2 % (11.5-17.5); White Blood Count 8.1 K/mm3 (4.8-10.8)
[2021-07-20 15:36] LABS: Alanine Aminotransferase 16 U/L (12-78); Albumin Level 3.9 g/dl (3.5-5.0); Albumin/Globulin Ratio 1.5 (1.1-1.8); Alkaline Phosphatase 59 U/L (38-126); Anion Gap 13.5 mEq/L (5-15); Aspartate Amino Transferase 25 U/L (17-59); Bilirubin,Total 0.4 mg/dl (0.2-1.3); Blood Urea Nitrogen 25 mg/dl (9-20); Calcium 9.3 mg/dl (8.4-10.2); Carbon Dioxide 28 mmol/L (22.0-30.0); Chloride 94 mmol/L (98-107); Creatine Kinase 30 U/L (55-170); Estimated Glomerular Filt Rate 64 ml/min (>60); GFR (African American) 78 ML/MIN (>60); Globulin 2.6 g/dL (1.3-3.2); Glucose 96 mg/dl (74-100); Potassium 4.5 mmoL/L (3.5-5.1); Sodium 131 mmol/L (136-145); Total Protein,Serum 6.5 g/dl (6.3-8.2)
[2021-07-20 15:41] LABS: C-Reactive Protein 0.6 mg/L (0-4)
[2021-07-20 15:58] LABS: Erythrocyte Sedimentation Rate 29 mm/hr (0-20)
== END ==
PROVIDERS: Visit Provider Podiatrist
DX: L03.031 Cellulitis of right toe (principal); L97.514 Non-pressure chronic ulcer of other part of right foot with necrosis of bone; M86.9 Osteomyelitis, unspecified
CPT/HCPCS: 80053; 82550; 85025; 85651; 86140

== ENCOUNTER → 2021-12-25 17:18 | Outpatient (CLI) | payer MEDICARE, SELFPAY ==
[2021-12-25 17:42] LABS: Basophils # 0.1 K/mm3 (0-0.2); Basophils % 0.9 % (0.1-2.0); Eosinophils # 0.4 K/mm3 (0.0-0.4); Eosinophils % 4.3 % (0.1-12.0); Hematocrit 42.7 % (42.0-52.0); Hemoglobin 13.6 g/dL (14.1-18.0); Lymphocytes # 1.1 K/mm3 (0.7-4.5); Lymphocytes % 12.2 % (10-50); Mean Corpuscular HGB Conc 31.8 g/dL (31.8-35.4); Mean Corpuscular Hemoglobin 34.2 pg (27.0-31.2); Mean Corpuscular Volume 107.6 fl (80-94); Mean Platelet Volume 10.4 fl (7.4-10.4); Monocytes # 0.7 K/mm3 (0.1-1.0); Monocytes % 8.1 % (1.7-9.3); Neutrophils # 6.8 K/mm3 (1.8-7.8); Neutrophils % 74.5 % (37.0-80.0); Platelet Count 526 K/mm3 (142-424); Red Blood Count 3.97 M/mm3 (4.60-6.20); Red Cell Distribution Width 16.5 % (11.5-17.5); White Blood Count 9.2 K/mm3 (4.8-10.8)
[2021-12-25 18:04] LABS: Alanine Aminotransferase 21 U/L (12-78); Albumin Level 4.6 g/dl (3.5-5.0); Albumin/Globulin Ratio 1.9 (1.1-1.8); Alkaline Phosphatase 62 U/L (38-126); Anion Gap 16.8 mEq/L (5-15); Aspartate Amino Transferase 33 U/L (17-59); Bilirubin,Total 0.7 mg/dl (0.2-1.3); Blood Urea Nitrogen 31 mg/dl (9-20); Calcium 9.5 mg/dl (8.4-10.2); Carbon Dioxide 29 mmol/L (22.0-30.0); Chloride 92 mmol/L (98-107); Chol/HDL Ratio 3.9 (1-3.5); Cholesterol 135 mg/dl (140-200); Estimated Glomerular Filt Rate 81 ml/min (>60); GFR (African American) 98 ML/MIN (>60); Globulin 2.4 g/dL (1.3-3.2); Glucose 101 mg/dl (74-100); HDL Cholesterol 35 mg/dl (40-60); Potassium 5.8 mmoL/L (3.5-5.1); Sodium 132 mmol/L (136-145); Triglycerides 152 mg/dl (30-150); VLDL Cholesterol 30 mg/dL (0-40)
[2021-12-25 18:11] LABS: Erythrocyte Sedimentation Rate 18 mm/hr (0-20)
[2021-12-25 18:16] LABS: C-Reactive Protein 0.5 mg/L (0-4); Direct LDL Cholesterol 62.61 mg/dL (100-129)
[2021-12-25 18:31] LABS: Hemoglobin A1C 6.5 % (4.0-6.0)
[2021-12-25 18:40] LABS: Prostate Specific Ag Screen 1.3 ng/ml (0.0-4.0)
== END ==
PROVIDERS: PCP Internal Medicine; Visit Provider Internal Medicine
DX: E11.42 Type 2 diabetes mellitus with diabetic polyneuropathy (principal); E11.59 Type 2 diabetes mellitus with other circulatory complications; I25.10 Atherosclerotic heart disease of native coronary artery without angina pectoris; E78.5 Hyperlipidemia, unspecified; I73.9 Peripheral vascular disease, unspecified; M05.79 Rheumatoid arthritis with rheumatoid factor of multiple sites without organ or systems involvement; M15.0 Primary generalized (osteo)arthritis; M06.9 Rheumatoid arthritis, unspecified; Z12.5 Encounter for screening for malignant neoplasm of prostate; Z79.84 Long term (current) use of oral hypoglycemic drugs
CPT/HCPCS: 80053; 80061; 83036; 85025; 85651; 86140; G0103

== ENCOUNTER → 2021-12-30 18:30 | Outpatient (CLI) | payer MEDICARE, SELFPAY ==
[2021-12-30 19:13] LABS: Microalbumin < 6.000 mg/L (0-16.7)
== END ==
PROVIDERS: Visit Provider Internal Medicine
DX: E11.59 Type 2 diabetes mellitus with other circulatory complications (principal); E11.42 Type 2 diabetes mellitus with diabetic polyneuropathy; Z79.84 Long term (current) use of oral hypoglycemic drugs
CPT/HCPCS: 82043

== ENCOUNTER → 2022-04-19 11:57 | Outpatient (CLI) | payer MEDICARE, SELFPAY ==
[2022-04-19 12:24] LABS: Basophils # 0.2 K/mm3 (0-0.2); Basophils % 2.2 % (0.1-2.0); Eosinophils # 0.7 K/mm3 (0.0-0.4); Eosinophils % 8.5 % (0.1-12.0); Hematocrit 41.8 % (42.0-52.0); Hemoglobin 12.7 g/dL (14.1-18.0); Lymphocytes # 1.1 K/mm3 (0.7-4.5); Lymphocytes % 13.3 % (10-50); Mean Corpuscular HGB Conc 30.4 g/dL (31.8-35.4); Mean Corpuscular Hemoglobin 33.5 pg (27.0-31.2); Mean Corpuscular Volume 110.4 fl (80-94); Mean Platelet Volume 8.3 fl (7.4-10.4); Monocytes # 0.6 K/mm3 (0.1-1.0); Monocytes % 7.3 % (1.7-9.3); Neutrophils # 5.7 K/mm3 (1.8-7.8); Neutrophils % 68.7 % (37.0-80.0); Platelet Count 452 K/mm3 (142-424); Red Blood Count 3.79 M/mm3 (4.60-6.20); Red Cell Distribution Width 16.2 % (11.5-17.5); White Blood Count 8.3 K/mm3 (4.8-10.8)
[2022-04-19 12:44] LABS: Alanine Aminotransferase 17 U/L (12-78); Albumin/Globulin Ratio 1.5 (1.1-1.8); Alkaline Phosphatase 89 U/L (38-126); Aspartate Amino Transferase 28 U/L (17-59); Bilirubin,Total 0.2 mg/dl (0.2-1.3); Blood Urea Nitrogen 27 mg/dl (9-20); Calcium 9.6 mg/dl (8.4-10.2); Carbon Dioxide 33 mmol/L (22.0-30.0); Chloride 95 mmol/L (98-107); Estimated Glomerular Filt Rate 72 ml/min (>60); GFR (African American) 87 ML/MIN (>60); Globulin 2.6 g/dL (1.3-3.2); Glucose 114 mg/dl (74-100); Sodium 135 mmol/L (136-145); Total Protein,Serum 6.6 g/dl (6.3-8.2)
[2022-04-19 12:52] LABS: Hemoglobin A1C 6.7 % (4.0-6.0)
[2022-04-19 13:14] LABS: Thyroid Stimulating Hormone 1.54 uIU/mL (0.465-4.68)
[2022-04-19 13:50] LABS: Vitamin B12 915 pg/mL (239-931)
[2022-04-19 13:52] LABS: Folate > 20.00 ng/mL
[2022-04-20 14:10] LABS: Albumin 3.4 g/dL (2.9-4.4); Alpha-1-Globulin 0.2 g/dL (0.0-0.4); Alpha-2-Globulin 0.9 g/dL (0.4-1.0); Gamma Globulin 0.9 g/dL (0.4-1.8); Protein, Total 6.6 g/dL (6.0-8.5)
== END ==
PROVIDERS: PCP Internal Medicine; Visit Provider Nurse Practitioner Family
DX: E11.9 Type 2 diabetes mellitus without complications (principal); R20.0 Anesthesia of skin; R20.2 Paresthesia of skin; Z79.84 Long term (current) use of oral hypoglycemic drugs
CPT/HCPCS: 36415; 80053; 82607; 82746; 83036; 84155; 84165; 84443; 85025; 86334

== ENCOUNTER 2022-06-22 15:00 | Outpatient (RCR) | payer MEDICARE, SELFPAY | END 2022-06-22 15:05 | disposition home or self-care (01) | LOC: OT 15:00 | PROVIDERS: PCP Internal Medicine; Visit Provider Nurse Practitioner Family | DX: G56.03 Carpal tunnel syndrome, bilateral upper limbs (principal) | CPT/HCPCS: 97010; 97014; 97035; 97110; 97140; 97165; G0283 ==

== ENCOUNTER → 2022-06-25 17:03 | Outpatient (CLI) | payer MEDICARE, SELFPAY ==
[2022-06-25 18:32] LABS: Basophils # 0.1 K/mm3 (0-0.2); Basophils % 1.4 % (0.1-2.0); Eosinophils # 0.4 K/mm3 (0.0-0.4); Hematocrit 42.1 % (42.0-52.0); Hemoglobin 12.8 g/dL (14.1-18.0); Lymphocytes # 1.2 K/mm3 (0.7-4.5); Lymphocytes % 19.2 % (10-50); Mean Corpuscular HGB Conc 30.5 g/dL (31.8-35.4); Mean Corpuscular Hemoglobin 32.9 pg (27.0-31.2); Mean Corpuscular Volume 107.9 fl (80-94); Mean Platelet Volume 10.9 fl (7.4-10.4); Monocytes # 0.4 K/mm3 (0.1-1.0); Monocytes % 6.9 % (1.7-9.3); Neutrophils # 4.1 K/mm3 (1.8-7.8); Neutrophils % 65.4 % (37.0-80.0); Platelet Count 621 K/mm3 (142-424); Red Cell Distribution Width 17.4 % (11.5-17.5); White Blood Count 6.2 K/mm3 (4.8-10.8)
[2022-06-25 19:47] LABS: Erythrocyte Sedimentation Rate 12 mm/hr (0-20)
[2022-06-25 21:46] LABS: Bilirubin,Direct 0.2 mg/dl (0.0-0.4)
[2022-06-25 21:47] LABS: Alanine Aminotransferase 25 U/L (12-78); Albumin Level 4.1 g/dl (3.5-5.0); Albumin/Globulin Ratio 1.6 (1.1-1.8); Alkaline Phosphatase 103 U/L (38-126); Anion Gap 13.3 mEq/L (5-15); Aspartate Amino Transferase 38 U/L (17-59); Bilirubin,Total 0.6 mg/dl (0.2-1.3); Blood Urea Nitrogen 22 mg/dl (9-20); Calcium 9.4 mg/dl (8.4-10.2); Carbon Dioxide 32 mmol/L (22.0-30.0); Chloride 99 mmol/L (98-107); Chol/HDL Ratio 3.6 (1-3.5); Cholesterol 138 mg/dl (140-200); Estimated Glomerular Filt Rate 93 ml/min (>60); GFR (African American) 112 ML/MIN (>60); Globulin 2.6 g/dL (1.3-3.2); Glucose 79 mg/dl (74-100); HDL Cholesterol 38 mg/dl (40-60); Potassium 5.3 mmoL/L (3.5-5.1); Sodium 139 mmol/L (136-145); Total Protein,Serum 6.7 g/dl (6.3-8.2); Triglycerides 115 mg/dl (30-150); VLDL Cholesterol 23 mg/dL (0-40)
[2022-06-25 21:51] LABS: C-Reactive Protein 0.5 mg/L (0-4)
[2022-06-25 22:05] LABS: Bilirubin,Indirect 0.4 mg/dL (0.0-0.9)
[2022-06-25 23:25] LABS: Hemoglobin A1C 6.6 % (4.0-6.0)
[2022-06-30 18:56] LABS: Direct LDL Cholesterol 74 mg/dL (100-129)
== END ==
PROVIDERS: Internal Medicine Rheumatology; PCP Internal Medicine; Visit Provider Internal Medicine
DX: E11.42 Type 2 diabetes mellitus with diabetic polyneuropathy (principal); I10 Essential (primary) hypertension; E78.5 Hyperlipidemia, unspecified; M06.09 Rheumatoid arthritis without rheumatoid factor, multiple sites; Z79.899 Other long term (current) drug therapy; Z79.84 Long term (current) use of oral hypoglycemic drugs
CPT/HCPCS: 80053; 80061; 82248; 83036; 85025; 85651; 86140

== ENCOUNTER 2022-08-02 13:47 | Inpatient (IN) | payer MEDICARE, SELFPAY ==
[2022-08-02] VITALS (14 sets, daily range): BP systolic 126–159; BP diastolic 53–96; PULSE 73–98; RESP 16–21; TEMP 36.7–37.2; O2SAT 76–96; BMI 22.4; BMI 23.1
--- NOTE | 2022-08-02 13:49 | XR_ITS ---
FINAL REPORT CLINICAL HISTORY: fall, chest pain COMPARISON: June 16, 2021 FINDINGS: Cardiomegaly is noted. Postoperative changes are seen from median sternotomy. There is mild left base opacity. There is no pneumothorax. There is a probable loose body adjacent to the inferior right glenoid. IMPRESSION: Mild left base opacity favors atelectasis over pneumonia. Reviewed, Interpreted and Dictated by Hayden Higgins III, MD Transcribed by Avinash Ku Authenticated and [facility]
--- NOTE | 2022-08-02 13:49 | CT_ITS ---
FINAL REPORT CLINICAL HISTORY: [facility] COMPARISON: 02/14/2021 FINDINGS: Axial images of the head were obtained without contrast. Coronal reformatted images were also obtained. This study was performed with techniques to keep radiation doses as low as reasonably achievable (ALARA). Individualized dose reduction techniques using automated exposure control or adjustment of mA and/or kV according to the patient's size were employed. There is generalized age-appropriate atrophy. Periventricular low-attenuation areas are seen consistent with mild chronic ischemic changes. There is no evidence of intracranial hemorrhage or mass. There is no evidence of acute infarct. There is no evidence of shift of the midline structures. No skull abnormality is seen on the bone window images. IMPRESSION: Atrophy and mild periventricular chronic ischemic changes. No acute intracranial abnormality identified. Reviewed, Interpreted and Dictated by Hayden Higgins III, MD Transcribed by Avinash Ku Authenticated and [facility]
--- NOTE | 2022-08-02 13:55 | HMH.EDGENADL ---
Discharge Plan Disposition Patient Disposition: Admitted as Observation Condition: Fair Clinical Impressions Clinical Impression: Weakness, Fall, COVID-19 Discharge ED Provider: Latonia Cunningham Adult HPI General Chief complaint: Fall Stated complaint: Fall Time Seen by Provider: 08/02/22 13:49 Mode of Arrival: EMS Source of Information: Patient and Relative Limitations: No Limitations History of Present Illness HPI narrative: Duplicate note. Related Data Home Medications Medication Instructions Recorded Confirmed aspirin 81 mg tablet,delayed 81 mg PO DAILY heart, 10/25/17 08/02/22 release (Chely Low Dose Aspirin) folic acid 1 mg tablet 1 mg PO DAILY Supplement 10/25/17 08/02/22 furosemide 40 mg tablet (Lasix) 40 mg PO DAILY Fluid 10/25/17 08/02/22 omeprazole 20 mg tablet,delayed 20 mg PO DAILY acid reflux 10/25/17 08/02/22 release atorvastatin 80 mg tablet (Lipitor) 80 mg PO HS Cholesterol 10/31/17 08/02/22 gabapentin 300 mg capsule 300 mg PO Q8H neuropathy 10/31/17 08/02/22 celecoxib 200 mg capsule 200 mg PO DAILY Pain 90 days ##90 01/23/18 08/02/22 methotrexate sodium 2.5 mg tablet 15 mg PO WEEKLY Pain 84 days ##96 01/23/18 08/03/22 timolol 0.25 % eye drops 1 drp ophthalmic (eye) BID Glaucoma 11/16/18 08/02/22 melatonin 10 mg tablet 5 mg PO HSP PRN Sleep 06/04/20 08/02/22 empagliflozin 10 mg tablet 10 mg PO DAILY Diabetes 12/30/20 08/02/22 metformin 1,000 mg tablet 1,000 mg PO BID Diabetes 12/30/20 08/02/22 Previous Rx's Medication Instructions Recorded rivaroxaban 2.5 mg tablet 2.5 mg PO BID anticoag #180 tabs 08/12/22 Allergies Allergy/AdvReac Type Severity Reaction Status Date / Time Penicillins Allergy Severe S-BLISTERING Verified 05/20/22 10:25 [facility] Medical History (Updated 08/08/22 @ 00:00 by Bonifacio Taylor) Amputation at midfoot Diabetes mellitus, type 2 Edema Hypercholesteremia Surgical History Aortocoronary bypass status Social History Smoking Status: Never smoker second hand exposure: No alcohol intake: never counseling provided: none substance use type: denies use current occupational status: retired Travel in the last 8 weeks: None household members: spouse housing: house current occupational exposures/hazards: No caffeine: Yes ROS Obtained: Yes All systems reviewed & no additional complaints except as documented Physical Exam General General appearance: in no apparent distress Respiratory Respiratory exam: Present normal lung sounds bilaterally Cardiovascular Cardiovascular exam: Present regular rate Neurological Exam Neurological exam: Present alert Medical Decision Making Medical Records Medical records reviewed: Yes I reviewed the patient's medical records. Hollis Inquiry Pt receiving controlled substance: No Vital Signs: 08/02/22 13:56 08/02/22 13:49 08/02/22 14:43 Temperature 98.9 F Temperature Source Oral Pulse Rate 97 H Pulse Rate [Right Radial] 94 H Respiratory Rate 18 Blood Pressure 142/77 H 148/75 H Blood Pressure [Left Arm] 142/77 H Blood Pressure Mean 87 99 Blood Pressure Mean [Left Arm] 98 Blood Pressure Source Blood Pressure Source [Left Arm] Automatic Cuff Blood Pressure Position Blood Pressure Position [Left Arm] 02 Sat by Pulse Oximetry 95 94 L Oxygen Delivery Method Room Air 08/02/22 15:00 08/02/22 15:30 08/02/22 16:00 Temperature Temperature Source Pulse Rate 86 86 73 Pulse Rate [Right Radial] Respiratory Rate 20 20 20 Blood Pressure 144/67 H 158/70 H 138/64 Blood Pressure [Left Arm] Blood Pressure Mean 92 99 99 Blood Pressure Mean [Left Arm] Blood Pressure Source Blood Pressure Source [Left Arm] Blood Pressure Position Blood Pressure Position [Left Arm] 02 Sat by Pulse Oximetry 90 L 90 L 95 Oxygen Del
--- NOTE | 2022-08-02 13:58 | HMH.EDGENADL ---
Discharge Plan Disposition Patient Disposition: Admitted as Observation Condition: Fair Clinical Impressions Clinical Impression: Weakness, Fall, COVID-19 Discharge ED Provider: Latonia Cunningham Adult HPI General Chief complaint: Fall Stated complaint: Fall Time Seen by Provider: 08/02/22 13:49 Mode of Arrival: EMS Source of Information: Patient and Relative Limitations: No Limitations History of Present Illness HPI narrative: 82-year-old male presenting to the emergency department with generalized weakness, fall. This fall happened yesterday evening. He was in the bathroom when he says he simply lost his balance and fell to the side. He landed on the ground. Does not think he was injured in the fall. However, he was too weak to get himself up, stand, walk. His son came to check on him today and found him in the bathroom. He took one of his late 's Tramadol yesterday. Gratz drunk all day. Has not eaten yet today. When EMS arrived he was awake and alert. His blood glucose was significantly elevated. He has a history of medication controlled diabetes. Denies recent illness, fevers, chills, nausea, vomiting. Has been taking all medicines as prescribed. He had a fall earlier this week where he struck the left side of his ribs. Did not seek medical attention. Continues to have pain directly over the site. Denies difficulty breathing. No anterior chest pain. Related Data Home Medications Medication Instructions Recorded Confirmed aspirin 81 mg tablet,delayed 81 mg PO DAILY heart, 10/25/17 08/02/22 release (Chely Low Dose Aspirin) folic acid 1 mg tablet 1 mg PO DAILY Supplement 10/25/17 08/02/22 furosemide 40 mg tablet (Lasix) 40 mg PO DAILY Fluid 10/25/17 08/02/22 omeprazole 20 mg tablet,delayed 20 mg PO DAILY acid reflux 10/25/17 08/02/22 release atorvastatin 80 mg tablet (Lipitor) 80 mg PO HS Cholesterol 10/31/17 08/02/22 gabapentin 300 mg capsule 300 mg PO Q8H neuropathy 10/31/17 08/02/22 celecoxib 200 mg capsule 200 mg PO DAILY Depression 90 days 01/23/18 08/02/22 ##90 methotrexate sodium 2.5 mg tablet 20 mg PO WEEKLY Pain 84 days ##96 01/23/18 08/02/22 timolol 0.25 % eye drops 1 drp ophthalmic (eye) BID Glaucoma 11/16/18 08/02/22 glipizide 10 mg tablet 10 mg PO DAILY suagr 07/17/19 08/02/22 melatonin 10 mg tablet 5 mg PO HSP PRN Sleep 06/04/20 08/02/22 empagliflozin 10 mg tablet 10 mg PO DAILY Diabetes 12/30/20 08/02/22 metformin 1,000 mg tablet 1,000 mg PO BID Diabetes 12/30/20 08/02/22 Previous Rx's Medication Instructions Recorded rivaroxaban 2.5 mg tablet 2.5 mg PO BID anticoag #180 tabs 05/10/22 Allergies Allergy/AdvReac Type Severity Reaction Status Date / Time Penicillins Allergy Severe S-BLISTERING Verified 05/20/22 10:25 [facility] Medical History Amputation at midfoot Diabetes mellitus, type 2 Edema Hypercholesteremia Surgical History Aortocoronary bypass status Social History Smoking Status: Never smoker second hand exposure: No alcohol intake: never counseling provided: none substance use type: denies use current occupational status: retired Travel in the last 8 weeks: None household members: spouse housing: house current occupational exposures/hazards: No caffeine: Yes ROS Obtained: Yes All systems reviewed & no additional complaints except as documented Constitutional Constitutional: Reports fatigue, Denies fever(s), Denies headache(s) and Reports weakness (generalized) Eyes Eyes: Denies blurry vision and Denies change in vision ENT Ears, Nose, Mouth, and Throat: Denies dizziness, Denies headache(s), Denies neck pain and Denies sore throat Cardiovascular Cardiovascular: Denies chest pain (only pain over lateral ribs), Denies dyspnea and Denies palpitations Respira
--- NOTE | 2022-08-02 14:06 | ECG_ITS ---
APPROVED REPORT Exam: Resting ECG HR:92 bpm ECG Measurements Heart Rate 92 AXES NE 242 P 60 QRSd 129 QRS 70 QT 369 T 15 QTc 419 Conclusion SINUS RHYTHM WITH FIRST DEGREE AV BLOCK POSSIBLE LEFT ATRIAL ENLARGEMENT [-0.1mV P-WAVE IN V1/V2] POSSIBLE RIGHT VENTRICULAR CONDUCTION DELAY [RSR (QR) IN V1/V2] SEPTAL MYOCARDIAL INFARCTION , OF INDETERMINATE AGE [40+ ms Q WAVE IN V1/V2] MODERATE T-WAVE ABNORMALITY, CONSIDER ANTERIOR ISCHEMIA [-0.1+ mV T-WAVE IN V3/V4] ABNORMAL ECG UNCONFIRMED REPORT Electronically signed by : Jassi Steel MD 08/02/2022 17:55:32
[2022-08-02 14:08] LABS: Influenza A, PCR Not Detected (NotDetected); Influenza B, PCR Not Detected (NotDetected)
[2022-08-02 14:18] LABS: Chloride 97 mmol/L (98-107); Sodium 141 mmol/L (136-145)
[2022-08-02 14:19] LABS: Potassium 4.4 mmoL/L (3.5-5.1)
[2022-08-02 14:20] LABS: VBG Base Excess 1.3 mmol/L (-2.4-2.3); VBG HCO3 26.2 mmol/L (23-30); VBG Oxygen Saturation 76.3 % (50-70); VBG PCO2 43.8 mmol/L (35-51); VBG PH 7.39 mmol/L (7.31-7.41); VBG Total CO2 27.5 mmol/L (23-27)
[2022-08-02 14:20] LABS: Albumin Level 4.5 g/dl (3.5-5.0); Basophils # 0.2 K/mm3 (0-0.2); Basophils % 1.5 % (0.1-2.0); Blood Urea Nitrogen 29 mg/dl (9-20); Creatinine Clearance Estimated 61 mL/min (50-200); Eosinophils # 0.1 K/mm3 (0.0-0.4); Eosinophils % 0.4 % (0.1-12.0); Estimated Glomerular Filt Rate 81 ml/min (>60); GFR (African American) 98 ML/MIN (>60); Hematocrit 43.5 % (42.0-52.0); Hemoglobin 13.5 g/dL (14.1-18.0); Lymphocytes # 0.4 K/mm3 (0.7-4.5); Lymphocytes % 3.5 % (10-50); Mean Corpuscular HGB Conc 31.1 g/dL (31.8-35.4); Mean Corpuscular Hemoglobin 32.3 pg (27.0-31.2); Mean Corpuscular Volume 103.9 fl (80-94); Mean Platelet Volume 8.6 fl (7.4-10.4); Monocytes # 0.9 K/mm3 (0.1-1.0); Monocytes % 7.1 % (1.7-9.3); Neutrophils # 10.6 K/mm3 (1.8-7.8); Neutrophils % 87.5 % (37.0-80.0); Platelet Count 444 K/mm3 (142-424); Red Blood Count 4.18 M/mm3 (4.60-6.20); Red Cell Distribution Width 17.7 % (11.5-17.5); White Blood Count 12.1 K/mm3 (4.8-10.8)
[2022-08-02 14:21] LABS: Alanine Aminotransferase 37 U/L (12-78); Alkaline Phosphatase 80 U/L (38-126); Anion Gap 17.4 mEq/L (5-15); Aspartate Amino Transferase 104 U/L (17-59); Bilirubin,Total 0.8 mg/dl (0.2-1.3); Calcium 9.1 mg/dl (8.4-10.2); Carbon Dioxide 31 mmol/L (22.0-30.0); Glucose 183 mg/dl (74-100); Lipase 50 U/L (23-300); Phosphorous 4.9 mg/dl (2.5-4.5)
[2022-08-02 14:22] LABS: Albumin/Globulin Ratio 1.5 (1.1-1.8); Globulin 3.1 g/dL (1.3-3.2); Total Protein,Serum 7.6 g/dl (6.3-8.2)
[2022-08-02 14:24] LABS: Acetone, Serum (Rapid) None Detected (None Detect)
--- NOTE | 2022-08-02 14:25 | PC.NURSE ---
PT back from RAD
[2022-08-02 14:30] LABS: MANUAL DIFFERENTIAL MANUAL DIFFERENTIAL (MANUAL DIFF)
[2022-08-02 14:40] LABS: Coronavirus 19, PCR Detected (NotDetected)
--- NOTE | 2022-08-02 14:42 | PC.NURSE ---
attempted to urinate, unable at this time, pt pulled up in bed, blanket given
[2022-08-02 14:59] LABS: Lymphocytes % 1 % (10-50); Monocytes % 6 % (2-9); Neutrophils % 93 % (42-76); Nucleated Red Blood Cells 1; Ovalocytes 1+; Platelet Estimate Normal; Schistocytes 1+; Total Cells Counted 100
[2022-08-02 15:00] LABS: Creatine Kinase 2632 U/L (55-170)
[2022-08-02 15:07] LABS: Howell-Jolly Bodies 1+
--- NOTE | 2022-08-02 15:18 | PC.NURSE ---
PT REPOSITIONED FOR COMFORT. NO COMPLAINTS VOICED. NO ACUTE DISTRESS NOTED.
--- NOTE | 2022-08-02 17:02 | PC.NURSE ---
PT AMBULATED WITH WALKER. PT WITH NOTED DIFFICULTY WITH POSITION CHANGES. PT STATES HE USES A CANE - AT HOME WHEN NEEDED. MADE AWARE.
[2022-08-02 17:05] LABS: Microscopic, Urine URINE MICROSCOPIC (MICROSCOPIC)
[2022-08-02 17:07] LABS: Appearance,Urine CLEAR (Clear); Bilirubin,Urine Negative (Negative); Blood, Urine 2+ (Negative); Color,Urine YELLOW (Yellow); Glucose,Urine (UA) 3+ (Negative); Ketones,Urine 1+ (Negative); Leukocyte Esterase,Urine Negative (Negative); Nitrate,Urine Negative (Negative); Protein,Urine 1+ (Negative); Urobilinogen,Urine 0.2 EU/dl (0.2)
[2022-08-02 17:27] LABS: Amorphous Sediment,Urine Trace /lpf; Bacteria,Urine Trace /lpf; Squamous Epithelial Cell,Urine Occasional #/hpf (0-5); WBC,Urine Occasional #/hpf (0-3)
--- NOTE | 2022-08-02 17:39 | PC.NURSE ---
ROGER ROSALES SPEAKING WITH DR. GARCIA
--- NOTE | 2022-08-02 17:39 | PC.NURSE ---
PHOTOTYPESETTING EQUIPMENT MONITOR NOTIFIED OF ADMISSION
--- NOTE | 2022-08-02 17:48 | EXP.HP ---
[facility] Medical History (Updated 08/02/22 @ 17:50 by Porfirio Babin MD) Amputation at midfoot Edema Hypercholesteremia Surgical History (Updated 08/02/22 @ 14:17 by Clair Blanchard, KATHARINE) Aortocoronary bypass status Social History (Updated 08/02/22 @ 14:18 by Clair Blanchard, KATHARINE) Smoking Status: Never smoker second hand exposure: No alcohol intake: never counseling provided: none substance use type: denies use current occupational status: retired Travel in the last 8 weeks: None household members: spouse housing: house current occupational exposures/hazards: No caffeine: Yes Review of Systems Review of Systems Review of systems (narrative): 14 point review of systems performed, pertinent positives and negatives as per HPI Constitutional Constitutional: Denies headache(s) and Reports weakness (generalized) ENT Ears, Nose, Mouth, and Throat: Denies dizziness and Denies headache(s) *Musculoskeletal Musculoskeletal: Denies numbness *Neurologic Neurologic: Denies dizziness, Denies headache(s), Denies numbness and Reports weakness (generalized) Meds Home Medications and Allergies Home Medications Medication Instructions Recorded Confirmed Type aspirin 81 mg tablet,delayed 81 mg PO DAILY heart, 10/25/17 08/02/22 History release (Chely Low Dose Aspirin) folic acid 1 mg tablet 1 mg PO DAILY Supplement 10/25/17 08/02/22 History furosemide 40 mg tablet (Lasix) 40 mg PO DAILY Fluid 10/25/17 08/02/22 History omeprazole 20 mg tablet,delayed 20 mg PO DAILY acid reflux 10/25/17 08/02/22 History release atorvastatin 80 mg tablet (Lipitor) 80 mg PO HS Cholesterol 10/31/17 08/02/22 History gabapentin 300 mg capsule 300 mg PO Q8H neuropathy 10/31/17 08/02/22 History celecoxib 200 mg capsule 200 mg PO DAILY Depression 90 days 01/23/18 08/02/22 History ##90 methotrexate sodium 2.5 mg tablet 20 mg PO WEEKLY Pain 84 days ##96 01/23/18 08/02/22 History timolol 0.25 % eye drops 1 drp ophthalmic (eye) BID Glaucoma 11/16/18 08/02/22 History glipizide 10 mg tablet 10 mg PO BID suagr 07/17/19 08/02/22 History melatonin 10 mg tablet 5 mg PO HSP PRN Sleep 06/04/20 08/02/22 History empagliflozin 10 mg tablet 10 mg PO DAILY Diabetes 12/30/20 08/02/22 History metformin 1,000 mg tablet 1,000 mg PO BID Diabetes 12/30/20 08/02/22 History tamsulosin 0.4 mg capsule 0.4 mg PO DAILY Urinary/Prostate 02/14/21 08/02/22 History omeprazole 20 mg capsule,delayed 30 mg PO DAILY GERD 04/19/22 08/02/22 History release metoprolol tartrate 25 mg tablet 12.5 mg PO BID htn 90 days #90 tabs 05/10/22 08/02/22 History rivaroxaban 2.5 mg tablet 2.5 mg PO BID anticoag #180 tabs 05/10/22 08/02/22 Rx New Prescriptions to Start Prescriptions: Allergies Allergy/AdvReac Type Severity Reaction Status Date / Time Penicillins Allergy Severe S-BLISTERING Verified 05/20/22 10:25 WELTS Exam Data for Last 24 hours Vital signs and Labs for Last 24 Hours: Temp Pulse Resp BP Pulse Ox 98.9 F 73 20 138/64 95 08/02/22 13:56 08/02/22 16:00 08/02/22 16:00 08/02/22 16:00 08/02/22 16:00 Laboratory Results - last 24 hr 08/02/22 13:49: VBG pH 7.39, VBG pCO2 43.8, VBG pO2 43.0 H, VBG HCO3 26.2, VBG Total CO2 27.5 H, VBG O2 Saturation 76.3 H, VBG Base Excess 1.3 08/02/22 13:58: SARS-CoV-2 (PCR) Detected A, Influenza A Untype (PCR) Not detected, Influenza Type B (PCR) Not detected 08/02/22 14:00: WBC 12.1 H, RBC 4.18 L, Hgb 13.5 L, Hct 43.5, MCV 103.9 H, MCH 32.3 H, MCHC 31.1 L, RDW 17.7 H, Plt Count 444 H, MPV 8.6, Neut % (Auto) 87.5 H, Lymph % (Auto) 3.5 L, [place] % (Auto) 7.1, Eos % (Auto) 0.4, Baso % (Auto) 1.5, Neut # (Auto) 10.6 H, Lymph # (Auto) 0.4 L, [place] # (Auto) 0.9, Eos # (Auto) 0.1, Baso # (Auto) 0.2, Total Counted 100, Neutrophils % (Manual) 93 H, Lymphocytes % (Manual) 1 L, Monocytes % (Manual) 6, Nucleated RBCs 1, Platelet Estimate Normal, Ovalocytes 1+, [place] Bodies 1+, Schistocytes 1+ 08/02/22 14:00: Nadira
--- NOTE | 2022-08-02 18:09 | PC.NURSE ---
PT MADE AWARE THAT REPORT HAS BEEN CALLED AND HE IS ONLY WAITING FOR TRANSPORT TO FLOOR. NO COMPLAINTS VOICED. NO ACUTE DISTRESS NOTED.
--- NOTE | 2022-08-02 19:28 | EXP.HP ---
History of Present Illness *Admission Date: 08/02/22 *Reason for visit:: Fall *History of present illness: Mr. Lea is a 82-year-old male with a past medical history of CAD s/p CABG, HTN, DM. He presented to the facility secondary to a fall associated with generalized weakness that occurred initially on 07/31, 3 days prior to presentation. The patient was seen on the medical surgical unit following his admission, he reported he had a fall initially on 07/31/2022 and felt that he bruised his ribs on the left and had an injury to his left upper extremity. He reports that he took his wifes Tramadol secondary to the discomfort. Since taking the medication he reported feeling very weak and dizzy. He reports that he had another fall on 08/01 and laid on the floor until he was found by his son. At that time he was brought into the ER for evaluation. In the ER the patient underwent a CT of the head without contrast that showed no intracranial abnormality. Cxray showed some atelectasis in the left lower lung lobe. CK was elevated at 2632 and COVID was positive. The patient reports he was fully vaccinated and boosted. The patient will be admitted with initial impression: Dehydration and Weakness. In the ER he was unable to ambulate and was a 2-assist. He reports he lives alone. He will be placed on iv fluids, we will monitor his CK levels and intake, PT will see in the morning for continued weakness and recommendations. The plan of care was discussed with the patient at bedside on admission, the patient verbalized understanding and agreement with the plan of care. [facility] Medical History (Updated 08/04/22 @ 11:03 by Ho Uribe MD) Amputation at midfoot Diabetes mellitus, type 2 Edema Hypercholesteremia Surgical History Aortocoronary bypass status Social History Smoking Status: Never smoker second hand exposure: No alcohol intake: never counseling provided: none substance use type: denies use current occupational status: retired Travel in the last 8 weeks: None household members: spouse housing: house current occupational exposures/hazards: No caffeine: Yes Review of Systems Constitutional Constitutional: Reports fatigue, Denies headache(s) and Reports weakness (generalized) ENT Ears, Nose, Mouth, and Throat: Denies dizziness and Denies headache(s) *Cardiovascular Cardiovascular: Reports system reviewed and no additional complaints, except as documented *Respiratory Respiratory: Reports system reviewed and no additional complaints, except as documented *Gastrointestinal Gastrointestinal: Reports system reviewed and no additional complaints, except as documented *Genitourinary Genitourinary: Reports system reviewed and no additional complaints, except as documented *Musculoskeletal Musculoskeletal: Denies numbness Integumentary/Breasts Skin/Breast: Reports system reviewed and no additional complaints, except as documented *Neurologic Neurologic: Denies dizziness, Denies headache(s), Denies numbness and Reports weakness (generalized) Endocrine Endocrine: Reports fatigue Allergic/Immunologic Allergic/Immunologic: Reports system reviewed and no additional complaints, except as documented Meds Home Medications and Allergies Home Medications Medication Instructions Recorded Confirmed Type aspirin 81 mg tablet,delayed 81 mg PO DAILY heart, 10/25/17 08/02/22 History release (Chely Low Dose Aspirin) folic acid 1 mg tablet 1 mg PO DAILY Supplement 10/25/17 08/02/22 History furosemide 40 mg tablet (Lasix) 40 mg PO DAILY Fluid 10/25/17 08/02/22 History omeprazole 20 mg tablet,delayed 20 mg PO DAILY acid reflux 10/25/17 08/02/22 History release atorvastatin 80 mg tablet (Lipitor) 80 mg PO HS Cholesterol 10/31/17 08/02/22 History gabapentin 300 mg capsule 300 mg PO Q8H neuropathy 10/31/17 10
[2022-08-02 20:43] LABS: POC Glucose,Bedside 316 (70-110)
[2022-08-02 23:42] LABS: Creatine Kinase 2917 U/L (55-170)
[2022-08-03 03:52] VITALS: BP 115/52; PULSE 77; RESP 16; TEMP 37; O2SAT 98
--- NOTE | 2022-08-03 05:30 | PC.NURSE ---
no acute change since previous assessment. pt is A&OX4. pt is weak, bed alarm is on for safety. abrasion to left forearm related to a previous fall. no complaints of SOB or pain at this time. CB in reach.
[2022-08-03 05:54] LABS: POC Glucose,Bedside 97 (70-110)
--- NOTE | 2022-08-03 07:07 | PC.NURSE ---
contacted nightwatch to verify remdesivir dosage.
--- NOTE | 2022-08-03 07:15 | HMH.PHAINT1 ---
Pharmacy Intervention Comments: Home medication reconciliation completed using outpatient pharmacy list and interview with patient.
[2022-08-03 07:24] LABS: Basophils # 0.1 K/mm3 (0-0.2); Basophils % 1.3 % (0.1-2.0); Eosinophils % 0.2 % (0.1-12.0); Hematocrit 40.8 % (42.0-52.0); Hemoglobin 12.7 g/dL (14.1-18.0); Lymphocytes # 0.9 K/mm3 (0.7-4.5); Lymphocytes % 8.8 % (10-50); Mean Corpuscular Hemoglobin 32.4 pg (27.0-31.2); Mean Corpuscular Volume 104.5 fl (80-94); Mean Platelet Volume 9.3 fl (7.4-10.4); Monocytes # 0.7 K/mm3 (0.1-1.0); Monocytes % 6.6 % (1.7-9.3); Neutrophils # 8.3 K/mm3 (1.8-7.8); Neutrophils % 83.1 % (37.0-80.0); Platelet Count 438 K/mm3 (142-424); Red Cell Distribution Width 17.7 % (11.5-17.5); White Blood Count 9.9 K/mm3 (4.8-10.8)
[2022-08-03 07:27] LABS: Chloride 100 mmol/L (98-107); Potassium 3.6 mmoL/L (3.5-5.1); Sodium 142 mmol/L (136-145)
[2022-08-03 07:29] LABS: Blood Urea Nitrogen 26 mg/dl (9-20); Creatinine Clearance Estimated 64 mL/min (50-200); Estimated Glomerular Filt Rate 81 ml/min (>60); GFR (African American) 98 ML/MIN (>60)
[2022-08-03 07:30] LABS: Alanine Aminotransferase 41 U/L (12-78); Albumin Level 3.9 g/dl (3.5-5.0); Albumin/Globulin Ratio 1.4 (1.1-1.8); Alkaline Phosphatase 72 U/L (38-126); Anion Gap 13.6 mEq/L (5-15); Aspartate Amino Transferase 118 U/L (17-59); Bilirubin,Total 0.4 mg/dl (0.2-1.3); Calcium 8.6 mg/dl (8.4-10.2); Carbon Dioxide 32 mmol/L (22.0-30.0); Globulin 2.8 g/dL (1.3-3.2); Glucose 89 mg/dl (74-100); Magnesium 2.1 mg/dl (1.6-2.3); Total Protein,Serum 6.7 g/dl (6.3-8.2)
[2022-08-03 07:42] LABS: Creatine Kinase 2722 U/L (55-170)
[2022-08-03 08:00] VITALS: BP 112/55; PULSE 71; RESP 22; TEMP 36.7; O2SAT 91
--- NOTE | 2022-08-03 10:08 | HMH.OTEV ---
OT Inpatient Evaluation Rehab OT IP Evaluation Start: 08/02/22 18:14 Freq: ONCE Status: Complete Protocol: [facility] 08/03/22 09:[facility] (Rec: 08/03/22 10:[address] [facility] [id number]) Rehab OT IP Assessment Subjective History Pt oriented x 3 on arrival. Pt agreeable to engage in therapy evaluation. Pt was admitted via ED on 08/02/22 due to a fall at home, COVID, and generalized weakness. Prior to being in the hospital , pt lived at home alone. He claims he was independent with all ADLs and IADLs. Pt did still drive. He used a cane during ambulation. Pt has a past medical history of: Amputation at midfoot Diabetes mellitus, type 2 Edema Hypercholesteremia Subjective I am ready to go home. Pt completed bed mobility with min assist to go from supine to sitting at eob. Pt stood from eob with min assist. Pt transferred from bed to chair (3 feet) with cga. Pt sat down in chair with cga. Pt was left in chair with call wood and all other needs in reach. Objective Patient Orientation Person,Place,Birthday,Year Upper Extremity Gross ROM Min Limitation <25% Shoulder ROM Limitations Pain Elbow ROM Limitations Pain Wrist Limitations of Range of Motion Pain Bed Mobility bed mobility-scooting,bed mobility - supine/sit,bed mobility - rolling Assist Level Minimal x 1 (25% assist) Transfer Training Sit/Stand Transfer Assist Level Contact Guard/Hand Hold Chair Transfer Ability Contact Guard/Hand Hold Chair Transfer Technique Sit to/from Ambulatory Chair Transfer Assistive Devices None Rehab OT IP prob,goals,plan Problems Date of Evaluation: 08/03/22 OT IP Problems Bed Mobility,Transfers,Balance ,Self care,Safety Rehab Potential Rehab Potential Good Equipment Needs Assistive Devices Straight Cane,Rolling /
--- NOTE | 2022-08-03 10:26 | HMH.PTEV ---
Physical Therapy Evaluation Rehab PT IP Evaluation Start: 08/02/22 18:14 Freq: ONCE Status: Active Protocol: Document 08/03/22 09:30 ZICARLOS (Rec: 08/03/22 10:26 FERCONRAD [id number]) Subjective/History History History Pt is a 82 y/o male that reports he fell on 07/31/2022 that resulted in bruising of his left ribs and injury of his left upper extremity. Pt reports he took his late ' s Tramadol for pain that made him weak and dizzy resulting in another fall on 08/01/22. Pt reports he was unable to get up and was later found by his son. Per records, in the ER the patient underwent a CT of the head without contrast that showed no intracranial abnormality. Cxray showed some atelectasis in the left lower lung lobe. CK was elevated at 2632 and COVID was positive. The pt was admitted for dehydration and weakness. Medical History: CAD s/p CABG, HTN, DM Subjective Subjective Pt reports he lives at home alone in a two-story home, states he lives upstairs. Pt reports he used a cane with community ambulation and no AD around the house. Pt reports he would like to go home and is only weak because he hit his ribs and is in pain. Rehab PT IP Eval Objective Appearance Patient Behavior Appropriate,Cooperative Patient Orientation Person,Place,Birthday Difficulty following instructions none Speech Pattern Clear,Appropriate Ambulation Patient Able to Ambulate Yes Ambulation Observation IP General Gait Pattern Observation Wide Based Gait,Shuffling Step Ambulation Distance (feet) 3 Ambulation Assistive Device None Ambulation Ability Contact Guard/Hand Hold Balance Ability to Arise Able, uses arms to help Sitting Balance Steady, safe Standing Balance Steady, wide stance Dynamic Sitting Balance Ability Good Dynamic Standing Balance Ability Good Transfers Chair Transfer Ability Contact G
--- NOTE | 2022-08-03 10:36 | EXP.PN ---
Subjective *Date: 08/03/22 *Time: 12:46 Interval history: No acute events overnight. He reports feeling better and believes he can still get around at home OK and take care of himself. He does still have chest wall pain. Exam Data for Last 24 hours Vital signs and Labs for Last 24 Hours: Temp Pulse Resp BP Pulse Ox 98.1 F 71 22 112/55 L 91 L 08/03/22 08:00 08/03/22 08:00 08/03/22 08:00 08/03/22 08:00 08/03/22 08:00 Laboratory Results - last 24 hr 08/02/22 13:49: VBG pH 7.39, VBG pCO2 43.8, VBG pO2 43.0 H, VBG HCO3 26.2, VBG Total CO2 27.5 H, VBG O2 Saturation 76.3 H, VBG Base Excess 1.3 08/02/22 13:58: SARS-CoV-2 (PCR) Detected A, Influenza A Untype (PCR) Not detected, Influenza Type B (PCR) Not detected 08/02/22 14:00: WBC 12.1 H, RBC 4.18 L, Hgb 13.5 L, Hct 43.5, MCV 103.9 H, MCH 32.3 H, MCHC 31.1 L, RDW 17.7 H, Plt Count 444 H, MPV 8.6, Neut % (Auto) 87.5 H, Lymph % (Auto) 3.5 L, [place] % (Auto) 7.1, Eos % (Auto) 0.4, Baso % (Auto) 1.5, Neut # (Auto) 10.6 H, Lymph # (Auto) 0.4 L, [place] # (Auto) 0.9, Eos # (Auto) 0.1, Baso # (Auto) 0.2, Total Counted 100, Neutrophils % (Manual) 93 H, Lymphocytes % (Manual) 1 L, Monocytes % (Manual) 6, Nucleated RBCs 1, Platelet Estimate Normal, Ovalocytes 1+, [place] Bodies 1+, Schistocytes 1+ 08/02/22 14:00: Sodium 141, Potassium 4.4, Chloride 97 L, Carbon Dioxide 31 H, Anion Gap 17.4 H, BUN 29 H, Creatinine 0.90, Estimated Creat Clear 61, Estimated GFR 81, Est GFR ( Amer) 98, Glucose 183 H, Calcium 9.1, Phosphorus 4.9 H, Magnesium 2.0, Total Bilirubin 0.8, AST 104 H, ALT 37, Alkaline Phosphatase 80, Total Protein 7.6, Albumin 4.5, Globulin 3.1, Albumin/Globulin Ratio 1.5, Lipase 50, Acetone Level None detected 08/02/22 14:00: Total Creatine Kinase 2632 H* 08/02/22 16:59: Urine Color Yellow, Urine Appearance Clear, Urine pH 6.0, Ur Specific [place] 1.020, Urine Protein 1+, Urine Glucose (UA) 3+, Urine Ketones 1+, Urine Blood 2+, Urine Nitrate Negative, Urine Bilirubin Negative, Urine Urobilinogen 0.2, Ur Leukocyte Esterase Negative, Urine RBC 3-5, Urine WBC Occasional, Ur Squamous Epith Cells Occasional, Amorphous Sediment Trace, Urine Bacteria Trace 08/02/22 20:35: POC Glucose 316 H* 08/02/22 22:44: Total Creatine Kinase 2917 H* 08/03/22 05:08: POC Glucose 97 08/03/22 06:41: WBC 9.9, RBC 3.90 L, Hgb 12.7 L, Hct 40.8 L, MCV 104.5 H, MCH 32.4 H, MCHC 31.0 L, RDW 17.7 H, Plt Count 438 H, MPV 9.3, Neut % (Auto) 83.1 H, Lymph % (Auto) 8.8 L, [place] % (Auto) 6.6, Eos % (Auto) 0.2, Baso % (Auto) 1.3, Neut # (Auto) 8.3 H, Lymph # (Auto) 0.9, [place] # (Auto) 0.7, Eos # (Auto) 0.0, Baso # (Auto) 0.1 08/03/22 06:41: Sodium 142, Potassium 3.6, Chloride 100, Carbon Dioxide 32 H, Anion Gap 13.6, BUN 26 H, Creatinine 0.90, Estimated Creat Clear 64, Estimated GFR 81, Est GFR ( Amer) 98, Glucose 89 D, Calcium 8.6, Magnesium 2.1, Total Bilirubin 0.4, AST 118 H, ALT 41, Alkaline Phosphatase 72, Total Creatine Kinase 2722 H*, Total Protein 6.7, Albumin 3.9 D, Globulin 2.8, Albumin/Globulin Ratio 1.4 I & O for Last 24 hours: Intake & Output 07/31/22 08/01/22 08/02/22 08/03/22 23:59 23:59 23:59 23:59 Intake Total 1490 / 1490 120 / 120 Output Total 1225 / 1225 200 / 200 Balance 265 / 265 -80 / -80 Weight 77.593 kg Constitutional Constitutional: no acute distress, chronically ill appearing and cooperative *Routine HEENT Exam Head: Present normocephalic and atraumatic Eye: Present EOMI and PERRL ENT: Present mucous membranes moist and oropharynx clear *Routine Neck Exam Neck: Present supple and full ROM *Routine Respiratory Exam Respiratory: Absent accessory muscle use, CTA bilaterally (bibasilar crackles ) or respiratory distress *Routine Cardiovascular Exam Cardiovascular: Present RRR, Normal S1 and Normal S2; Absent murmur *Routine Abdominal Exam Abdominal: Present soft and normoactive bowel sounds; Absent tenderness, distended, rebound or guarding *Routine Extremities Exam Extremities: P
--- NOTE | 2022-08-03 11:15 | SW/DCPLANNER ---
Addendum entered by Katiuska Oliveira 08/04/22 11:56: Per [facility] will begin tomorrow for this patient. Addendum entered by Katiuska Oliveira 08/04/22 09:23: Patient information/order will be faxed to [facility] for PT/OT/long-term. Original Note: I spoke with this patient regarding discharge plans. Patient stated that he resides at home alone and does well by himself. PT/OT evaluated this patient and recommended placement. Patient is adamant to return home at time of discharge. Patient does refuse placement but is willing to have home health services. Patient does not have a preference for home health agency. I will set patient up with home health at time of discharge. Discharge date is unknown at this time.
[2022-08-03 11:53] LABS: POC Glucose,Bedside 88 (70-110)
[2022-08-03 12:00] VITALS: BP 110/60; PULSE 66; RESP 18; TEMP 37; O2SAT 91
[2022-08-03 14:43] LABS: Chloride 100 mmol/L (98-107); Sodium 140 mmol/L (136-145)
[2022-08-03 14:46] LABS: Alanine Aminotransferase 38 U/L (12-78); Albumin Level 3.4 g/dl (3.5-5.0); Albumin/Globulin Ratio 1.3 (1.1-1.8); Alkaline Phosphatase 68 U/L (38-126); Aspartate Amino Transferase 110 U/L (17-59); Bilirubin,Total 0.2 mg/dl (0.2-1.3); Blood Urea Nitrogen 26 mg/dl (9-20); Calcium 8.1 mg/dl (8.4-10.2); Carbon Dioxide 30 mmol/L (22.0-30.0); Creatinine Clearance Estimated 64 mL/min (50-200); Estimated Glomerular Filt Rate 81 ml/min (>60); GFR (African American) 98 ML/MIN (>60); Globulin 2.7 g/dL (1.3-3.2); Glucose 113 mg/dl (74-100); Total Protein,Serum 6.1 g/dl (6.3-8.2)
[2022-08-03 16:00] VITALS: BP 100/55; PULSE 64; RESP 20; TEMP 36.9; O2SAT 95
[2022-08-03 18:01] LABS: POC Glucose,Bedside 88 (70-110)
[2022-08-03 19:17] LABS: Creatine Kinase 2714 U/L (55-170)
[2022-08-03 19:55] VITALS: BP 112/65; PULSE 71; RESP 16; TEMP 37.2; O2SAT 98
[2022-08-03 20:25] LABS: POC Glucose,Bedside 138 (70-110)
--- NOTE | 2022-08-03 20:45 | PC.NURSE ---
Pt is A/ox4. He has ambulated from the bed to the chair and tolerated it well. He has remained RA all shift with no issues. He has tolerated his diet.
--- NOTE | 2022-08-04 03:55 | PC.NURSE ---
pt A&OX4. ambulated to chair with assistance, tolerated well. no c/o SOB or pain this shift. O2 sats >95% on RA. CB in reach.
[2022-08-04 03:58] VITALS: BP 118/54; PULSE 72; RESP 18; TEMP 37.1; O2SAT 92
[2022-08-04 05:40] LABS: POC Glucose,Bedside 107 (70-110)
[2022-08-04 06:53] LABS: Chloride 100 mmol/L (98-107); Potassium 4.2 mmoL/L (3.5-5.1); Sodium 139 mmol/L (136-145)
[2022-08-04 06:56] LABS: Blood Urea Nitrogen 24 mg/dl (9-20); Calcium 8.2 mg/dl (8.4-10.2); Creatine Kinase 1309 U/L (55-170); Creatinine Clearance Estimated 64 mL/min (50-200); Estimated Glomerular Filt Rate 81 ml/min (>60); GFR (African American) 98 ML/MIN (>60); Glucose 95 mg/dl (74-100)
[2022-08-04 07:53] VITALS: BP 112/55; PULSE 74; RESP 14; TEMP 37.3; O2SAT 91
[2022-08-04 07:55] LABS: Anion Gap 14.2 mEq/L (5-15); Carbon Dioxide 29 mmol/L (22.0-30.0)
[2022-08-04 08:00] VITALS: RESP 18
[2022-08-04 09:53] LABS: Alanine Aminotransferase 39 U/L (12-78); Aspartate Amino Transferase 114 U/L (17-59)
--- NOTE | 2022-08-04 10:17 | EXP.DC.SUM ---
General Admission date:: 08/02/22 Discharge date: 08/04/22 HPI HPI HPI: Mr. Lea is a 82-year-old male with a past medical history of CAD s/p CABG, HTN, DM. He presented to the facility secondary to a fall associated with generalized weakness that occurred initially on 07/31, 3 days prior to presentation. The patient was seen on the medical surgical unit following his admission, he reported he had a fall initially on 07/31/2022 and felt that he bruised his ribs on the left and had an injury to his left upper extremity. He reports that he took his wifes Tramadol secondary to the discomfort. Since taking the medication he reported feeling very weak and dizzy. He reports that he had another fall on 08/01 and laid on the floor until he was found by his son. At that time he was brought into the ER for evaluation. In the ER the patient underwent a CT of the head without contrast that showed no intracranial abnormality. Cxray showed some atelectasis in the left lower lung lobe. CK was elevated at 2632 and COVID was positive. The patient reports he was fully vaccinated and boosted. The patient will be admitted with initial impression: Dehydration and Weakness. In the ER he was unable to ambulate and was a 2-assist. He reports he lives alone. He will be placed on iv fluids, we will monitor his CK levels and intake, PT will see in the morning for continued weakness and recommendations. The plan of care was discussed with the patient at bedside on admission, the patient verbalized understanding and agreement with the plan of care. Hospital Course Hospital Course Hospital Course: Patient admitted for rhabdomyolysis after being found down at home for a day and a half. Creatinine kinase peaked at 2917 and this has gradually trended down to 1309 this morning. Kidney function has remained normal during admission. Yesterday patient was rather weak and had difficulty sitting up in bed, however nurse reports patient was able to get up and walk frequently yesterday afternoon. Today patient indeed appears stronger, steadier, and more energetic. He is able to stand and ambulate with minimal assistance. Patient was offered transfer to a rehab facility to help build up his strength, however he adamantly refused this. Based on today's exam he does appear safe to go home with home health physical therapy and Occupational Therapy. Additionally, patient was diagnosed with COVID on admission, and this likely contributed to his weakness. He has been treated with remdesivir during admission, however because he does not have any hypoxia he can discontinue this and does not need any other medication going home. Exam Data for Last 24 hours Vital signs and Labs for Last 24 Hours: Temp Pulse Resp BP Pulse Ox 99.2 F 74 14 112/55 L 91 L 08/04/22 07:53 08/04/22 07:53 08/04/22 07:53 08/04/22 07:53 08/04/22 07:53 Laboratory Results - last 24 hr 08/03/22 11:43: POC Glucose 88 08/03/22 14:20: Sodium 140, Potassium 4.0, Chloride 100, Carbon Dioxide 30, Anion Gap 14.0, BUN 26 H, Creatinine 0.90, Estimated Creat Clear 64, Estimated GFR 81, Est GFR ( Amer) 98, Glucose 113 H D, Calcium 8.1 L, Total Bilirubin 0.2, AST 110 H, ALT 38, Alkaline Phosphatase 68, Total Creatine Kinase 2714 H*, Total Protein 6.1 L, Albumin 3.4 L D, Globulin 2.7, Albumin/Globulin Ratio 1.3 08/03/22 17:54: POC Glucose 88 08/03/22 20:13: POC Glucose 138 H 08/04/22 05:13: POC Glucose 107 08/04/22 06:33: Sodium 139, Potassium 4.2, Chloride 100, Carbon Dioxide 29, Anion Gap 14.2, BUN 24 H, Creatinine 0.90, Estimated Creat Clear 64, Estimated GFR 81, Est GFR ( Amer) 98, Glucose 95, Calcium 8.2 L, Total Creatine Kinase 1309 H* D 08/04/22 06:33: AST 114 H, ALT 39 I & O for Last 24 hours: Intake & Output 08/01/22 08/02/22 08/03/22 08/04/22 23:59 23:59 23:59 23:59 Intake Total 1490 / 1490 600 / 600 360 / 360 Output Total 1225 / 1225 1650 / 2050 1000 / 1000 Balance
--- NOTE | 2022-08-04 11:22 | PC.NURSE ---
Pt's IV quit working, and pt refused to be stuck again. Spoke with Dr. Uribe and he stated that it was fine for pt to D/C without getting full dose of remdesivir.
--- NOTE | 2022-08-04 11:24 | PC.NURSE ---
Spoke with pharmacy about pt's arm being a little red from getting remdesivir. [facility] stated that since small amount just place warm compress on pts arm.
[2022-08-04 11:48] LABS: POC Glucose,Bedside 128 (70-110)
--- NOTE | 2022-08-04 12:21 | PC.NURSE ---
Pt stated that he is waiting for ride to come get him.
--- NOTE | 2022-08-04 13:59 | PC.NURSE ---
Checked on pt he was getting his shoes' I explained to pt that he has to call out before he gets up. I told him I was going to put a chair alarm on him. He stated that he would call out before he gets up he does not want a chair alarm on.
--- NOTE | 2022-08-05 13:38 | CARE MANAGER ---
Contacted patient related to hospital discharge. Patient said home health had already been there today to initiate services. He didn't have any new medications but is aware that he needs to discontinue his glipizide. He is aware of his follow up appointment and denies any questions or concerns at this time. KATHARINE Patel
== END 2022-08-04 17:04 | disposition home health service (06) | DRG 557 ==
LOC: ER 17:41 → 2ND 17:53
PROVIDERS: Emergency Medicine; Nurse Practitioner Acute Care; Nurse Practitioner Family; Admitting Provider Internal Medicine Adolescent Medicine; Emergency Provider Emergency Medicine; PCP Internal Medicine; Visit Provider Internal Medicine Adolescent Medicine
DX: M62.82 Rhabdomyolysis (principal); U07.1 COVID-19; E86.0 Dehydration; I25.10 Atherosclerotic heart disease of native coronary artery without angina pectoris; E11.9 Type 2 diabetes mellitus without complications; Z95.1 Presence of aortocoronary bypass graft; W19.XXXA Unspecified fall, initial encounter; Z89.439 Acquired absence of unspecified foot; E78.00 Pure hypercholesterolemia, unspecified; M06.9 Rheumatoid arthritis, unspecified; Z79.84 Long term (current) use of oral hypoglycemic drugs
CPT/HCPCS: 36415; 70450; 71045; 80048; 80053; 81001; 82009; 82550; 82803; 82962; 83690; 83735; 84100; 84450; 84460; 85007; 85025; 93005; 97110; 97116; 97162; 97166; 97535; 99285; C9803; J8610; U0003; U0005

== ENCOUNTER → 2022-09-24 14:52 | Outpatient (CLI) | payer MEDICARE, SELFPAY ==
[2022-09-24 15:32] LABS: Basophils # 0.1 K/mm3 (0-0.2); Basophils % 1.5 % (0.1-2.0); Eosinophils # 0.4 K/mm3 (0.0-0.4); Eosinophils % 5.2 % (0.1-12.0); Hematocrit 42.5 % (42.0-52.0); Hemoglobin 13.2 g/dL (14.1-18.0); Lymphocytes # 1.2 K/mm3 (0.7-4.5); Lymphocytes % 17.6 % (10-50); Mean Corpuscular HGB Conc 31.1 g/dL (31.8-35.4); Mean Corpuscular Hemoglobin 31.4 pg (27.0-31.2); Mean Corpuscular Volume 100.9 fl (80-94); Mean Platelet Volume 9.5 fl (7.4-10.4); Monocytes # 0.5 K/mm3 (0.1-1.0); Monocytes % 6.5 % (1.7-9.3); Neutrophils # 4.9 K/mm3 (1.8-7.8); Neutrophils % 69.1 % (37.0-80.0); Platelet Count 590 K/mm3 (142-424); Red Blood Count 4.21 M/mm3 (4.60-6.20); Red Cell Distribution Width 17.9 % (11.5-17.5)
[2022-09-24 16:05] LABS: Erythrocyte Sedimentation Rate 32 mm/hr (0-20)
[2022-09-24 16:07] LABS: Alanine Aminotransferase 17 U/L (12-78); Albumin Level 4.5 g/dl (3.5-5.0); Alkaline Phosphatase 113 U/L (38-126); Aspartate Amino Transferase 30 U/L (17-59); Bilirubin,Direct 0.1 mg/dl (0.0-0.4); Bilirubin,Indirect 0.5 mg/dL (0.0-0.9); Bilirubin,Total 0.6 mg/dl (0.2-1.3); Bilirubin,Unconjugated 0.5 mg/dL (0.0-1.1); Blood Urea Nitrogen 23 mg/dl (9-20); Estimated Glomerular Filt Rate 93 ml/min (>60); GFR (African American) 112 ML/MIN (>60); Total Protein,Serum 7.1 g/dl (6.3-8.2)
[2022-09-24 16:52] LABS: Hemoglobin A1C 7.1 % (4.0-6.0)
== END ==
PROVIDERS: Internal Medicine Rheumatology; PCP Internal Medicine; Visit Provider Internal Medicine
DX: E11.42 Type 2 diabetes mellitus with diabetic polyneuropathy (principal); Z79.84 Long term (current) use of oral hypoglycemic drugs
CPT/HCPCS: 80076; 82565; 83036; 84520; 85025; 85651; 86140

== ENCOUNTER → 2023-03-25 16:56 | Outpatient (CLI) | payer MEDICARE, SELFPAY ==
[2023-03-25 19:17] LABS: Basophils # 0.1 K/mm3 (0-0.2); Basophils % 0.5 % (0.1-2.0); Eosinophils # 0.3 K/mm3 (0.0-0.4); Eosinophils % 2.2 % (0.1-12.0); Hemoglobin 12.9 g/dL (14.1-18.0); Lymphocytes # 1.8 K/mm3 (0.7-4.5); Lymphocytes % 15.4 % (10-50); Mean Corpuscular HGB Conc 31.3 g/dL (31.8-35.4); Mean Corpuscular Hemoglobin 30.5 pg (27.0-31.2); Mean Corpuscular Volume 97.5 fl (80-94); Mean Platelet Volume 10.3 fl (7.4-10.4); Monocytes # 0.6 K/mm3 (0.1-1.0); Monocytes % 5.1 % (1.7-9.3); Neutrophils # 8.8 K/mm3 (1.8-7.8); Neutrophils % 76.9 % (37.0-80.0); Platelet Count 868 K/mm3 (142-424); Red Blood Count 4.21 M/mm3 (4.60-6.20); Red Cell Distribution Width 18.9 % (11.5-17.5); White Blood Count 11.5 K/mm3 (4.8-10.8)
[2023-03-25 19:47] LABS: Erythrocyte Sedimentation Rate 64 mm/hr (0-20)
[2023-03-25 20:03] LABS: Hemoglobin A1C 7.8 % (4.0-6.0)
[2023-03-25 20:04] LABS: Creatinine,Urine Random 22 mg/dL (Not Estab.); Microalbumin < 6.000 mg/L (0-16.7)
[2023-03-25 20:15] LABS: Alanine Aminotransferase 66 U/L (12-78); Albumin Level 3.8 g/dl (3.5-5.0); Albumin/Globulin Ratio 1.4 (1.1-1.8); Alkaline Phosphatase 224 U/L (38-126); Aspartate Amino Transferase 64 U/L (17-59); Bilirubin,Total 0.6 mg/dl (0.2-1.3); Blood Urea Nitrogen 18 mg/dl (9-20); Calcium 8.5 mg/dl (8.4-10.2); Carbon Dioxide 29 mmol/L (22.0-30.0); Chloride 92 mmol/L (98-107); Chol/HDL Ratio 3.7 (1-3.5); Cholesterol 115 mg/dl (140-200); Estimated Glomerular Filt Rate 108 ml/min (>60); GFR (African American) 131 ML/MIN (>60); Globulin 2.8 g/dL (1.3-3.2); Glucose 111 mg/dl (74-100); HDL Cholesterol 31 mg/dl (40-60); Sodium 134 mmol/L (136-145); Total Protein,Serum 6.6 g/dl (6.3-8.2); Triglycerides 172 mg/dl (30-150); VLDL Cholesterol 34 mg/dL (0-40)
[2023-03-25 20:26] LABS: C-Reactive Protein 15.9 mg/L (0-4); Direct LDL Cholesterol 57.88 mg/dL (100-129)
== END ==
PROVIDERS: PCP Internal Medicine; Visit Provider Internal Medicine
DX: E11.59 Type 2 diabetes mellitus with other circulatory complications (principal); E11.42 Type 2 diabetes mellitus with diabetic polyneuropathy; I25.10 Atherosclerotic heart disease of native coronary artery without angina pectoris; I73.9 Peripheral vascular disease, unspecified; E78.5 Hyperlipidemia, unspecified; M06.9 Rheumatoid arthritis, unspecified; M15.0 Primary generalized (osteo)arthritis; Z79.84 Long term (current) use of oral hypoglycemic drugs
CPT/HCPCS: 80053; 80061; 82043; 82570; 83036; 85025; 85651; 86140

== ENCOUNTER 2023-09-17 17:52 | Emergency (ER) | payer MEDICARE, SELFPAY ==
[2023-09-17 17:58] VITALS: BP 155/79; PULSE 78; O2SAT 98
[2023-09-17 18:00] VITALS: BP 155/79; PULSE 77; RESP 20; TEMP 36.8; O2SAT 96; BMI 21.7
[2023-09-17 18:01] VITALS: BP 154/63; PULSE 74; O2SAT 95
--- NOTE | 2023-09-17 18:25 | CT_ITS ---
PROCEDURE INFORMATION: Exam: CT Head Without Contrast Exam date and time: 09/17/2023 6:36 PM Age: 83 years old Clinical indication: Pain; Headache; Additional info: Fall, head injury on xarelto TECHNIQUE: Imaging protocol: Computed tomography of the head without contrast. Radiation optimization: All CT scans at this facility use at least one of these dose optimization techniques: automated exposure control; mA and/or kV adjustment per patient size (includes targeted exams where dose is matched to clinical indication); or iterative reconstruction. REPORTING DATA: Count of CT and Cardiac NM exams in prior 12 months: This patient has received 0 known CTs and 0 known cardiac nuclear medicine studies in the 12 months prior to the current study. COMPARISON: CT HEAD/BRAIN WO CON 08/02/2022 2:12 PM FINDINGS: Brain: The brain parenchyma appears normal for an elderly patient, with no evidence of acute ischemia, hemorrhage, or masses. The holloway-white matter differentiation is preserved. Mild periventricular white matter hypodensities are consistent with chronic small vessel ischemic changes, which are often seen in elderly patients and are not indicative of acute pathology. Cerebral ventricles: Ventricles and sulci are consistent with patient age, showing mild age-related atrophy but no significant enlargement. Paranasal sinuses: The orbits and paranasal sinuses are free of marked disease. No opacifications are observed in the visible sinus cavities. There are scattered areas of sinus mucosal thickening. Small layering fluid in the maxillary sinuses. Mastoid air cells: Visualized mastoid air cells are well aerated. Dental: There is dental amalgam which causes streak artifact and mildly limits evaluation of the oral cavity. Bones/joints: The cranial bones are intact with no signs of fractures or lytic lesions. Soft tissues: Unremarkable. IMPRESSION: In this patient, the head CT reveals no evidence of acute intracranial pathology. The observed structures including the brain parenchyma, vascular structures, cranial bones, and soft tissues appear within normal limits, except for age-related atrophic and chronic ischemic changes which are not unexpected for this age group.
--- NOTE | 2023-09-17 18:25 | CT_ITS ---
PROCEDURE INFORMATION: Exam: CT Cervical Spine Without Contrast Exam date and time: 09/17/2023 6:39 PM Age: 83 years old Clinical indication: Neck pain; Additional info: Fall, injury on xarelto TECHNIQUE: Imaging protocol: Computed tomography of the cervical spine without contrast. Radiation optimization: All CT scans at this facility use at least one of these dose optimization techniques: automated exposure control; mA and/or kV adjustment per patient size (includes targeted exams where dose is matched to clinical indication); or iterative reconstruction. REPORTING DATA: Count of CT and Cardiac NM exams in prior 12 months: This patient has received 0 known CTs and 0 known cardiac nuclear medicine studies in the 12 months prior to the current study. COMPARISON: CT CERVICAL SPINE WO CON 02/14/2021 5:49 AM FINDINGS: Bones/joints: There is straightening of the normal spinal curvature. The alignment of the cervical spine appears normal with no evidence of subluxation or dislocation. The vertebral bodies are well-maintained without compression fractures. Disc spaces are generally preserved, although there are degenerative changes noted including disc space narrowing and osteophyte formation. These changes are consistent with age-related degenerative disc disease. The facet joints are intact but show some evidence of degenerative changes including hypertrophy and osteophyte formation. No facet dislocation is identified. The spinal canal is patent without evidence of central canal stenosis. Despite the post-traumatic clinical setting, there are no signs of acute fractures, dislocations, or ligamentous injury in the cervical spine. Lungs: Lung apices are normal. Nerves: The neural foramina are also open but slightly narrowed due to degenerative changes, without signs of nerve root impingement. Vasculature: There are atherosclerotic calcifications of the carotid bulbs bilaterally. Soft tissues: Soft tissues appear normal without signs of acute trauma or hematoma. Paraspinal muscles are unremarkable. IMPRESSION: This post-traumatic cervical spine CT demonstrates no acute traumatic findings such as fractures or ligamentous injury. There are age-related degenerative changes that include disc space narrowing and osteophyte formation. These degenerative changes are not uncommon for the patient's age and should be clinically correlated for a comprehensive assessment.
--- NOTE | 2023-09-17 18:28 | HMH.EDGENADL ---
Discharge Plan Disposition Patient Disposition: Home, Self-Care Prescriptions Prescriptions: No Action methotrexate sodium 2.5 mg tablet 15 mg PO WEEKLY 84 Days Qty: 96 Patient Comments: Rx Instructions: 6 tablets every Tuesday celecoxib 200 mg capsule 200 mg PO DAILY 90 Days Qty: 90 Patient Comments: timolol 0.25 % drops 1 drp OPHTHALMIC BID prednisone 1 mg tablet 1 mg PO aspirin [Chely Low Dose Aspirin] 81 mg tablet,delayed release (DR/EC) 81 mg PO DAILY folic acid 1 mg tablet 1 mg PO DAILY furosemide [Lasix] 40 mg tablet 40 mg PO DAILY omeprazole 20 mg tablet,delayed release (DR/EC) 20 mg PO DAILY melatonin 10 mg tablet 5 mg PO HSP PRN (Reason: Sleep) atorvastatin [Lipitor] 80 mg tablet 80 mg PO HS gabapentin 300 mg capsule 300 mg PO Q8H metformin 1,000 mg tablet 1,000 mg PO BID Patient Comments: pt reports he is taking 1/2 tablet in the morning and taking whole tablet in the evening empagliflozin 10 mg tablet 10 mg PO DAILY rivaroxaban 2.5 mg tablet 2.5 mg PO BID Qty: 180 1RF Referrals Follow up/Referrals: Floyd Olea MD [Primary Care Provider] - See instructions Activity Restrictions/Add. Instructions Additional Instructions/Restrictions: Please have your ana lilia removed in 10 days your CAT scan did not show any acute abnormalities return with any worsening symptoms. Clinical Impressions Clinical Impression: Laceration of scalp, Minor head injury, Fall Instructions Patient Instructions: DI for Laceration Repair Discharge ED Provider: Ceci Godinez General Adult HPI General Chief complaint: Wound/Laceration Stated complaint: [id number]/[id number] fall hit head Time Seen by Provider: 09/17/23 18:17 History of Present Illness HPI narrative: Patient is an 83-year-old male presents today with a posterior scalp laceration after mechanical fall on gravel falling directly onto the posterior aspect of his head. Denies any neck pain denies any neurologic symptoms specifically any upper extremity weakness or any focal neurologic deficits. Denies any changes in mental status persistent nausea vomiting however he is on Xarelto. No syncopal episodes preceding this either. Related Data Home Medications Medication Instructions Recorded Confirmed aspirin 81 mg tablet,delayed 81 mg PO DAILY heart, 10/25/17 11/08/22 release (Chely Low Dose Aspirin) folic acid 1 mg tablet 1 mg PO DAILY Supplement 10/25/17 11/08/22 furosemide 40 mg tablet (Lasix) 40 mg PO DAILY Fluid 10/25/17 11/08/22 omeprazole 20 mg tablet,delayed 20 mg PO DAILY acid reflux 10/25/17 11/08/22 release atorvastatin 80 mg tablet (Lipitor) 80 mg PO HS Cholesterol 10/31/17 11/08/22 gabapentin 300 mg capsule 300 mg PO Q8H neuropathy 10/31/17 11/08/22 celecoxib 200 mg capsule 200 mg PO DAILY Pain 90 days ##90 01/23/18 11/08/22 methotrexate sodium 2.5 mg tablet 15 mg PO WEEKLY Pain 84 days ##96 01/23/18 11/08/22 timolol 0.25 % eye drops 1 drp ophthalmic (eye) BID Glaucoma 11/16/18 11/08/22 melatonin 10 mg tablet 5 mg PO HSP PRN Sleep 06/04/20 11/08/22 empagliflozin 10 mg tablet 10 mg PO DAILY Diabetes 12/30/20 11/08/22 metformin 1,000 mg tablet 1,000 mg PO BID Diabetes 12/30/20 11/08/22 prednisone 1 mg tablet 1 mg PO 11/08/22 11/08/22 Previous Rx's Medication Instructions Recorded rivaroxaban 2.5 mg tablet 2.5 mg PO BID anticoag #180 tabs 08/24/23 Allergies Allergy/AdvReac Type Severity Reaction Status Date / Time Penicillins Allergy Severe S-BLISTERING Verified 11/08/22 13:09 [facility] Disclaimer: The information contained in this section may have been updated after the patient was seen, as this information can be updated by other users. Medical History (Updated 09/17/23 @ 18:30 by Ceci Godinez MD) Amputation at midfoot Diabetes mellitus, type 2 Edema History of left heart catheterization Hyperc
[2023-09-17 18:31] VITALS: BP 140/62; PULSE 70; O2SAT 98
--- NOTE | 2023-09-17 18:34 | PC.NURSE ---
PT TO XRAY
[2023-09-17 19:22] VITALS: BP 138/64; PULSE 74; RESP 18; TEMP 36.8; O2SAT 98
== END 2023-09-17 19:10 | disposition home or self-care (01) ==
PROVIDERS: Emergency Provider Student in an Organized Health Care Education/Training Program; PCP Internal Medicine
DX: S09.8XXA Other specified injuries of head, initial encounter (principal); S01.01XA Laceration without foreign body of scalp, initial encounter; I25.10 Atherosclerotic heart disease of native coronary artery without angina pectoris; E11.9 Type 2 diabetes mellitus without complications; E78.00 Pure hypercholesterolemia, unspecified; Z79.01 Long term (current) use of anticoagulants; Z79.84 Long term (current) use of oral hypoglycemic drugs; W18.30XA Fall on same level, unspecified, initial encounter
CPT/HCPCS: 12001; 70450; 72125; 99285

== ENCOUNTER → 2023-09-23 17:00 | Outpatient (CLI) | payer MEDICARE, SELFPAY ==
[2023-09-23 18:02] LABS: Basophils # 0.1 K/mm3 (0-0.2); Basophils % 0.9 % (0.1-2.0); Eosinophils # 0.4 K/mm3 (0.0-0.4); Hematocrit 41.9 % (42.0-52.0); Lymphocytes # 2.2 K/mm3 (0.7-4.5); Lymphocytes % 28.6 % (10-50); Mean Corpuscular Hemoglobin 30.8 pg (27.0-31.2); Mean Corpuscular Volume 99.5 fl (80-94); Mean Platelet Volume 10.6 fl (7.4-10.4); Monocytes # 0.7 K/mm3 (0.1-1.0); Monocytes % 9.4 % (1.7-9.3); Neutrophils # 4.3 K/mm3 (1.8-7.8); Neutrophils % 56.1 % (37.0-80.0); Platelet Count 555 K/mm3 (142-424); Red Blood Count 4.21 M/mm3 (4.60-6.20); Red Cell Distribution Width 17.9 % (11.5-17.5); White Blood Count 7.6 K/mm3 (4.8-10.8)
[2023-09-23 18:08] LABS: Alanine Aminotransferase 31 U/L (12-78); Albumin Level 4.4 g/dl (3.5-5.0); Albumin/Globulin Ratio 1.3 (1.1-1.8); Alkaline Phosphatase 134 U/L (38-126); Anion Gap 15.9 mEq/L (5-15); Aspartate Amino Transferase 34 U/L (17-59); Bilirubin,Total 0.6 mg/dl (0.2-1.3); Blood Urea Nitrogen 25 mg/dl (9-20); Calcium 8.9 mg/dl (8.4-10.2); Carbon Dioxide 31 mmol/L (22.0-30.0); Chloride 93 mmol/L (98-107); Chol/HDL Ratio 3.9 (1-3.5); Cholesterol 148 mg/dl (140-200); Estimated Glomerular Filt Rate 81 ml/min (>60); GFR (African American) 98 ML/MIN (>60); Globulin 3.3 g/dL (1.3-3.2); Glucose 115 mg/dl (74-100); HDL Cholesterol 38 mg/dl (40-60); Potassium 4.9 mmoL/L (3.5-5.1); Sodium 135 mmol/L (136-145); Total Protein,Serum 7.7 g/dl (6.3-8.2); Triglycerides 160 mg/dl (30-150); VLDL Cholesterol 32 mg/dL (0-40)
[2023-09-23 18:19] LABS: Direct LDL Cholesterol 80.58 mg/dL (100-129)
== END ==
PROVIDERS: PCP Internal Medicine; Visit Provider Internal Medicine
DX: E11.59 Type 2 diabetes mellitus with other circulatory complications (principal); E11.42 Type 2 diabetes mellitus with diabetic polyneuropathy; I73.9 Peripheral vascular disease, unspecified; I25.10 Atherosclerotic heart disease of native coronary artery without angina pectoris; E78.5 Hyperlipidemia, unspecified; M06.9 Rheumatoid arthritis, unspecified; M15.0 Primary generalized (osteo)arthritis; Z79.84 Long term (current) use of oral hypoglycemic drugs
CPT/HCPCS: 80053; 80061; 83036; 85025

== ENCOUNTER 2024-03-30 15:20 | Outpatient (CLI) | payer MEDICARE, SELFPAY ==
[2024-03-30 14:01] LABS: Basophils # 0.1 K/mm3 (0-0.2); Basophils % 0.5 % (0.1-2.0); Eosinophils # 0.3 K/mm3 (0.0-0.4); Eosinophils % 1.9 % (0.1-12.0); Hematocrit 42.2 % (42.0-52.0); Hemoglobin 12.9 g/dL (14.1-18.0); Lymphocytes # 1.5 K/mm3 (0.7-4.5); Lymphocytes % 10.8 % (10-50); Mean Corpuscular HGB Conc 30.6 g/dL (31.8-35.4); Mean Corpuscular Hemoglobin 29.7 pg (27.0-31.2); Mean Corpuscular Volume 96.9 fl (80-94); Mean Platelet Volume 10.2 fl (7.4-10.4); Monocytes # 0.7 K/mm3 (0.1-1.0); Monocytes % 5.2 % (1.7-9.3); Neutrophils # 10.8 K/mm3 (1.8-7.8); Neutrophils % 81.5 % (37.0-80.0); Platelet Count 708 K/mm3 (142-424); Red Blood Count 4.36 M/mm3 (4.60-6.20); Red Cell Distribution Width 19.4 % (11.5-17.5); White Blood Count 13.3 K/mm3 (4.8-10.8)
[2024-03-30 14:12] LABS: Creatinine,Urine Random 19 mg/dL (Not Estab.)
[2024-03-30 14:21] LABS: Microalbumin < 6.000 mg/L (0-16.7)
[2024-03-30 14:34] LABS: Alanine Aminotransferase 116 U/L (12-78); Albumin Level 4.2 g/dl (3.5-5.0); Albumin/Globulin Ratio 1.2 (1.1-1.8); Alkaline Phosphatase 260 U/L (38-126); Anion Gap 18.6 mEq/L (5-15); Aspartate Amino Transferase 43 U/L (17-59); Bilirubin,Total 0.9 mg/dl (0.2-1.3); Blood Urea Nitrogen 22 mg/dl (9-20); Calcium 9.8 mg/dl (8.4-10.2); Carbon Dioxide 33 mmol/L (22.0-30.0); Chloride 90 mmol/L (98-107); Chol/HDL Ratio 5.2 (1-3.5); Cholesterol 129 mg/dl (140-200); Estimated Glomerular Filt Rate 93 ml/min (>60); GFR (African American) 112 ML/MIN (>60); Globulin 3.6 g/dL (1.3-3.2); Glucose 175 mg/dl (74-100); HDL Cholesterol 25 mg/dl (40-60); Potassium 5.6 mmoL/L (3.5-5.1); Sodium 136 mmol/L (136-145); Total Protein,Serum 7.8 g/dl (6.3-8.2); Triglycerides 225 mg/dl (30-150); VLDL Cholesterol 45 mg/dL (0-40)
[2024-03-30 14:45] LABS: Direct LDL Cholesterol 66.04 mg/dL (100-129)
== END 2024-03-30 23:59 | disposition home or self-care (01) ==
LOC: LAB.DROPOF 15:21
PROVIDERS: PCP Internal Medicine; Visit Provider Internal Medicine
DX: E11.59 Type 2 diabetes mellitus with other circulatory complications (principal); I10 Essential (primary) hypertension; I73.9 Peripheral vascular disease, unspecified; E78.2 Mixed hyperlipidemia; M06.9 Rheumatoid arthritis, unspecified; Z79.84 Long term (current) use of oral hypoglycemic drugs
CPT/HCPCS: 80053; 80061; 82043; 82570; 85025

== ENCOUNTER 2024-07-06 07:14 | Outpatient (CLI) | payer MEDICARE, SELFPAY ==
--- NOTE | 2024-07-06 07:15 | US_ITS ---
FINAL REPORT CLINICAL HISTORY: Elevated alkaline phosphatase COMPARISON: None FINDINGS: Sonographic images of the right upper quadrant were obtained. The pancreas is partially obscured. Fatty infiltration of the liver is present. Multiple gallstones are present in the gallbladder. There is thickening of the gallbladder wall, which measures 6 mm in diameter. The common duct measures 8 mm, which in this age group is borderline enlarged.. Limited images of the right kidney are remarkable for a small 8 mm renal cyst. IMPRESSION: Multiple gallstones are present in the gallbladder, with gallbladder wall thickening. The common bile duct measures 8 mm, which is the upper limits of normal for this patient's age group. Cholecystitis is not excluded. If clinically indicated, MRCP could be performed for further evaluation. Fatty infiltration of the liver. Pancreas poorly visualized secondary to overlying bowel gas. Reviewed, Interpreted and Dictated by Hayden Higgins III, MD Transcribed by Zarina Mon Authenticated and [facility]
== END 2024-07-06 23:59 | disposition home or self-care (01) ==
LOC: RAD 07:15
PROVIDERS: PCP Internal Medicine; Visit Provider Internal Medicine
DX: R74.8 Abnormal levels of other serum enzymes (principal)
CPT/HCPCS: 76705

== ENCOUNTER 2024-10-01 14:52 | Outpatient (CLI) | payer MEDICARE, SELFPAY ==
[2024-10-01 13:29] LABS: Basophils # 0.1 K/mm3 (0-0.2); Basophils % 1.3 % (0.1-2.0); Eosinophils # 0.4 K/mm3 (0.0-0.4); Eosinophils % 4.7 % (0.1-12.0); Hematocrit 37.7 % (42.0-52.0); Hemoglobin 12.1 g/dL (14.1-18.0); Lymphocytes # 1.1 K/mm3 (0.7-4.5); Mean Corpuscular HGB Conc 32.1 g/dL (31.8-35.4); Mean Corpuscular Hemoglobin 30.8 pg (27.0-31.2); Mean Platelet Volume 9.4 fl (7.4-10.4); Monocytes # 0.5 K/mm3 (0.1-1.0); Monocytes % 6.7 % (1.7-9.3); Neutrophils # 5.8 K/mm3 (1.8-7.8); Neutrophils % 73.3 % (37.0-80.0); Platelet Count 757 K/mm3 (142-424); Red Blood Count 3.93 M/mm3 (4.60-6.20); Red Cell Distribution Width 19.5 % (11.5-17.5); White Blood Count 7.9 K/mm3 (4.8-10.8)
[2024-10-01 14:54] LABS: Albumin Level 3.8 g/dl (3.5-5.0); Chloride 99 mmol/L (98-107); Sodium 138 mmol/L (136-145)
[2024-10-01 14:55] LABS: Potassium 5.2 mmoL/L (3.5-5.1)
[2024-10-01 14:57] LABS: Alanine Aminotransferase 26 U/L (12-78); Amylase 65 U/L (30-110); Anion Gap 13.2 mEq/L (5-15); Aspartate Amino Transferase 32 U/L (17-59); Blood Urea Nitrogen 23 mg/dl (9-20); Carbon Dioxide 31 mmol/L (22.0-30.0); Estimated Glomerular Filt Rate 92 ml/min (>60); GFR (African American) 112 ML/MIN (>60)
[2024-10-01 14:58] LABS: Albumin/Globulin Ratio 1.4 (1.1-1.8); Alkaline Phosphatase 126 U/L (38-126); Bilirubin,Total 0.4 mg/dl (0.2-1.3); Calcium 9.2 mg/dl (8.4-10.2); Globulin 2.8 g/dL (1.3-3.2); Glucose 118 mg/dl (74-100); Total Protein,Serum 6.6 g/dl (6.3-8.2)
[2024-10-01 16:31] LABS: Prostate Specific Ag Screen 0.9 ng/ml (0.0-4.0)
== END 2024-10-01 23:59 | disposition home or self-care (01) ==
LOC: LAB.DROPOF 14:53
PROVIDERS: PCP Internal Medicine; Visit Provider Internal Medicine
DX: Z12.5 Encounter for screening for malignant neoplasm of prostate (principal); I10 Essential (primary) hypertension; R10.13 Epigastric pain; E11.42 Type 2 diabetes mellitus with diabetic polyneuropathy; E11.59 Type 2 diabetes mellitus with other circulatory complications; E78.2 Mixed hyperlipidemia
CPT/HCPCS: 80053; 82150; 85025; G0103

== ENCOUNTER 2024-11-30 13:50 | Outpatient (CLI) | payer MEDICARE, SELFPAY ==
--- NOTE | 2024-11-30 13:55 | CA_ITS ---
APPROVED REPORT EXAM: Comprehensive 2D, Doppler, and color-flow Echocardiogram Automatic Furnace Operator: Alyssa Morrell RVT Ht: 6 ft 0 in Wt: 175lbs BSA: 2.01 BP: 113/61 mmHg Indications: CAD,HTN,DM,HLD TDS-LIMITED WINDOWS 2D Dimensions LA Volume 53.90 mL LA Volume Index 26.82 mL/m2 (M/F) 16-34 M-Mode Dimensions RVDd 3.20 cm (0.9-2.6) LA Diam 4.47 cm (1.9-4.0) LVDd 4.81 cm (3.5-5.7) LVDs 3.90 cm (3.5-5.7) IVSd 0.44 cm (0.6-1.1) PWd 0.66 cm (0.6-1.1) EF (Teich) 39.00% EPSs 3.09 cm FS 18.90% EDV (Teich) 108.00 mL ESV (Teich) 65.90 mL LV Diastology E Decel Time 217 (160-240 msec) E/A Ratio 0.8 Aortic Valve PASTOR Index 1.17 cm2/m2 AoV Peak Rubén. 131.0 (50-130 cm/s) AO Peak GR. 6.90 mmHg AO Mean GR. 4.10 (<5 mmHg) AO VTI 27.5 (18-25 cm) PASTOR (VTI) 2.40 (2.5-4.5 cm2) Mitral Valve MV E Max Rubén. 60.0 (40-130 cm/s) MV A Velocity 80.0 (40-130 cm/s) E/A Ratio 0.75 MV Mean Gr. 1.60 (<2mmHg) MV PHT 63.0 ms Pulmonary Valve PV Peak Velocity 57.0 (50-150 cm/s) Tricuspid Valve TR P. Velocity 220.00 cm/s RAP Estimate 10.00 mmHg RVSP 29.40 mmHg Left Ventricle The left ventricle is normal size. The left ventricular systolic function is low normal. There is increased LV wall thickness. The septum is asynchronous. There is septal flattening present, consistent with right-sided volume/pressure overload. Transmitral Doppler flow pattern suggests impaired LV relaxation. LVEF is 50%. Right Ventricle Right ventricle is moderately dilated. Right ventricle is mildly hypokinetic. Atria Left atrium is moderately dilated. Right atrium is moderately dilated. There is no Doppler evidence of interatrial shunt. Aortic Valve The aortic valve is mildly thickened. There is no aortic valvular stenosis. Trace aortic regurgitation. Mitral Valve Mild mitral annular calcification. The mitral valve leaflets are mildly thickened. No evidence of mitral valve stenosis. Mild mitral regurgitation. Tricuspid Valve Tricuspid valve is grossly normal in structure and function. Mild tricuspid regurgitation. RVSP is 25-30 mmHg. Pulmonic Valve The pulmonary valve is normal in structure. Trace pulmonic regurgitation. Great Vessels The aortic root is normal in size. IVC is normal in size and collapses >50% with inspiration. Pericardium There is no pericardial effusion. Other Information Study Quality: Fair Conclusion Low normal LV systolic function (LVEF 50%). Moderate RV dilation with mild reduction in RV function. Asynchronous septum. Septal flattening consistent with right-sided pressure/volume overload. Biatrial dilation. Mild MR, mild TR. Electronically signed by : Marisol Guerrero MD 12/09/2024 00:07:37
== END 2024-11-30 23:59 | disposition home or self-care (01) ==
LOC: RT 13:51
PROVIDERS: PCP Internal Medicine; Visit Provider Nurse Practitioner
DX: I51.7 Cardiomegaly (principal); I34.0 Nonrheumatic mitral (valve) insufficiency; I36.1 Nonrheumatic tricuspid (valve) insufficiency; R09.89 Other specified symptoms and signs involving the circulatory and respiratory systems; I10 Essential (primary) hypertension; I25.10 Atherosclerotic heart disease of native coronary artery without angina pectoris; I73.9 Peripheral vascular disease, unspecified; E78.2 Mixed hyperlipidemia
CPT/HCPCS: 93306

== ENCOUNTER 2025-04-02 09:15 | Outpatient (CLI) | payer MEDICARE, SELFPAY ==
--- OUTSIDE RECORDS SUMMARY | 2025-03-05 10:12 | XMS_ITS | Continuity of Care Document ---
Author Name [facility] Organization [facility] Care Team Providers Care Game Producer Name Role Phone [facility] Unavailable Unavailable Problems Combined list of problems from [facility] and [facility] facilities. It does not include entries that were removed or entered in error. Problem Status Onset Date Problem Type Date of Resolution Comments Source AF - Atrial Fibrillation ([facility] [id number]) Active Condition [facility] Chronic ischemic heart disease Active Condition [facility] Diabetes mellitus type 2 Active Condition [facility] Glaucoma Active Condition [facility] Peripheral vascular disease Active Condition [facility] Rheumatoid arthritis Active Condition [facility] Diagnosis: ICD-10-CM Z13.9 Encounter for screening, unspecified Active Diagnosis PSYCHIATRIC Medications Combined list of outpatient medications from [facility] and [facility] facilities.Medications provided include 1) outpatient medications from the last 15 months, and 2) patient-reported medications. Medication Details Route Status Patient Instructions Prescription Expires Prescription Number Last Dispense Date Ordering Provider Order Date Order Qty Source APIXABAN 5MG TAB TAKE ONE-HALF TABLET BY MOUTH TWICE A DAY ORAL ACTIVE DOWNS,TAR A N 2021 [place] [facility] ASCORBIC ACID 500MG TAB TAKE ONE TABLET BY MOUTH DAILY ORAL ACTIVE DOWNS,TAR A N 2021 [place] [facility] ASPIRIN 81MG TAB,EC TAKE ONE TABLET BY MOUTH DAILY ORAL ACTIVE DOWNS,TAR A N 2021 [place] [facility] CALCIUM 500MG TAB TAKE TWO TABLETS BY MOUTH TWICE A DAY ORAL ACTIVE DOWNS,TAR A N 2021 [place] [facility] CELECOXIB 200MG CAP TAKE 1 CAPSULE BY MOUTH DAILY ORAL ACTIVE DOWNS,TAR A N 2021 [place] [facility] EMPAGLIFLOZ IN 10MG TAB TAKE ONE TABLET BY MOUTH EVERY MORNING ORAL ACTIVE DOWNS,TAR A N 2021 [place] [facility] FOLIC ACID 1MG TAB TAKE ONE TABLET BY MOUTH EVERY MORNING ORAL ACTIVE DOWNS,TAR A N 2021 [place] [facility] FUROSEMIDE 40MG TAB TAKE ONE TABLET BY MOUTH DAILY ORAL ACTIVE DOWNS,TAR A N 2021 [place] [facility] GABAPENTIN 300MG CAP TAKE 1 CAPSULE BY MOUTH THREE TIMES A DAY ORAL ACTIVE DOWNS,TAR A N 2021 [place] [facility] GLIPIZIDE 10MG TAB TAKE ONE TABLET BY MOUTH DAILY ORAL ACTIVE DOWNS,TAR A N 2021 [place] [facility] INSULIN NPH (NOVOLIN N) INJ INJECT UNDER THE SKIN PRN SUBCUT ANEOUS ACTIVE ,TAR A N 2021 [place] [facility] IRBESARTAN 300MG TAB TAKE ONE-HALF TABLET BY MOUTH DAILY ORAL ACTIVE DOWNS,TAR A N 2021 [place] [facility] MAGNESIUM GLUCONATE 250MG TAB TAKE TWO TABLETS BY MOUTH DAILY ORAL ACTIVE ,TAR A N 2021 [place] [facility] MELATONIN 5MG CAP/TAB TAKE 1 CAP(S)/T AB BY MOUTH AT BEDTIME ORAL ACTIVE DOWNS,TAR A N 2021 [place] [facility] METFORMIN HCL 1000MG TAB TAKE ONE TABLET BY MOUTH TWICE A DAY ORAL ACTIVE DOWNS,TAR A N 2021 [place] [facility] METHOTREXAT E NA 2.5MG TAB TAKE 8 TABLETS BY MOUTH WEEKLY ORAL ACTIVE DOWNS,TAR A N 2021 [place] [facility] METOPROLOL TARTRATE 50MG TAB TAKE ONE-HALF TABLET BY MOUTH TWICE A DAY ORAL ACTIVE DOWNS,TAR A N 2021 [place] [facility] OMEPRAZOLE 20MG CAP,EC TAKE 1 CAPSULE BY MOUTH ONCE A DAY 30 MINUTES BEFORE A MEAL ORAL ACTIVE DOWNS,TAR A N 2021 [place] [facility] PREDNISONE 1MG TAB TAKE ONE TABLET BY MOUTH EVERY MORNING ORAL ACTIVE DOWNS,TAR A N 2021 [place] [facility] TIMOLOL MALEATE 0.5% SOLN,OPH PUT 1 DROP IN EYE(S) TWICE A DAY OPHTHA LMIC ACTIVE DOWNS,TAR A N 2021 [place] [facility] Allergies, Adverse Reactions, Alerts Combined list of allergies from [facility] facilities. It does not include entries that were removed or entered in error. Substance Category Reaction Severity Reaction type Status Date Reported Comments Source PENICILLIN Propensity to adverse reactions to drug (finding) Eruption active 7 [facility] Immunizations Combined list of available immunizations from the [facility] and [facility] facilities. Immunization Series Date Given Administered By Site Reaction Lot Number CVX Code Drug Tick Eradicator Status Comments Source INFLUENZA A & B (HISTORICAL) 2015 88 complet ed [place] [facility] Encounters Combined list of: 1) Encounters from [facility] facilities going backup to the last 18 months, not all [place] inpatient encounters are included; 2) Encounters from the [facility] facilities going backup to 280 months. Location Location Details Encounter Type Encounter Number Reason For Visit Attending Provider ADM Date DC Date Status Disposition Source [facility] BRIEF COMUNICAJ TECH-[facility] [id number] Diagnos is: ICD-10- CM Z13.9 Encount er for screeni vida, breti KARAN Norris A 03/05 [facility] Social History Combined list of available smoking, tobacco, and other social history from [facility]. Social History Type Response Date Comment Sourc e Tobacco smoking status NHIS [place] FORMER USER 02/02/2022 [facility] History of tobacco use [place]-TO[place]AC[place] QUIT 15 YRS OR MORE 02/02/2022 [facility] History of tobacco use V9 QUIT TOBACCO >7 YEARS AGO 04/20/2017 [facility]
[2025-04-02 15:12] LABS: Basophils # 0.1 K/mm3 (0-0.2); Basophils % 1.6 % (0.1-2.0); Eosinophils # 0.8 Kmm3 (0.0-0.4); Eosinophils % 10.4 % (0.1-12.0); Hematocrit 39.3 % (42.0-52.0); Hemoglobin 11.9 g/dL (14.1-18.0); Immature Granulocytes # 0.02 10^3uL; Immature Granulocytes % 0.3 %; Lymphocytes # 1.2 K/mm3 (0.7-4.5); Mean Corpuscular HGB Conc 30.3 g/dL (31.8-35.4); Mean Corpuscular Hemoglobin 28.4 pg (27.0-31.2); Mean Corpuscular Volume 93.8 fl (80-94); Mean Platelet Volume 11.7 fl (7.4-10.4); Monocytes % 13.2 % (1.7-9.3); Neutrophils # 4.6 K/mm3 (1.8-7.8); Neutrophils % 59.5 % (37.0-80.0); Nucleated Red Blood Cells # 0.15 10^3/uL; Platelet Count 497 K/mm3 (142-424); Red Blood Count 4.19 M/mm3 (4.60-6.20); Red Cell Distribution Width 21.6 % (11.5-17.5); Red Cell Distribution Width-SD 72.5 fL; White Blood Count 7.7 K/mm3 (4.8-10.8)
[2025-04-02 15:44] LABS: Alanine Aminotransferase 17 U/L (12-78); Albumin Level 4.4 g/dl (3.5-5.0); Albumin/Globulin Ratio 1.5 (1.1-1.8); Alkaline Phosphatase 103 U/L (38-126); Anion Gap 9.8 mEq/L (5-15); Aspartate Amino Transferase 27 U/L (17-59); Bilirubin,Total 0.6 mg/dl (0.2-1.3); Blood Urea Nitrogen 25 mg/dl (9-20); Calcium 9.4 mg/dl (8.4-10.2); Carbon Dioxide 35 mmol/L (22.0-30.0); Chloride 98 mmol/L (98-107); Chol/HDL Ratio 3.2 (1-3.5); Cholesterol 139 mg/dl (140-200); Estimated Glomerular Filt Rate 92 ml/min (>60); GFR (African American) 112 ML/MIN (>60); Glucose 149 mg/dl (74-100); HDL Cholesterol 43 mg/dl (40-60); Potassium 4.8 mmoL/L (3.5-5.1); Sodium 138 mmol/L (136-145); Total Protein,Serum 7.4 g/dl (6.3-8.2); Triglycerides 106 mg/dl (30-150); VLDL Cholesterol 21 mg/dL (0-40)
[2025-04-02 15:54] LABS: Direct LDL Cholesterol 66.44 mg/dL (100-129)
[2025-04-02 17:00] LABS: Creatinine,Urine Random 20 mg/dL (Not Estab.); Microalbumin < 6.000 mg/L (0-16.7)
[2025-04-02 18:27] LABS: Hemoglobin A1C 8.3 % (4.0-6.0)
[2025-04-02 19:00] LABS: Vitamin B12 966 pg/mL (239-931)
[2025-04-02 19:20] LABS: Iron 36 ug/dL (49-181)
[2025-04-02 19:30] LABS: Total Iron Binding Capacity 398 ug/dL (261-462)
--- OUTSIDE RECORDS SUMMARY | 2025-04-03 11:19 | XMS_ITS | Clinical Summary ---
Author Organization [facility] Address [address] [place] [address] Care Team Providers Care Supervising Producer Name Role Phone Unavailable Primary Care Provider Unavailabl e Social History Tobacco Use Types Packs/Day Years Used Date Smoking Tobacco: Never Assessed Sex and Gender Information Value Date Recorded Sex Assigned at Not on file Legal Sex Male 9:13 PM EDT Gender Identity Not on file Sexual Orientation Not on file Plan of Treatment Health Maintenance Due Date Last Done Comments DTap,Tdap,and Td (1 - Tdap) 1952 Pneumococcal 50+ (1 of 1 - PCV) 1991 Shingrix (#1) 1991 RSV Vaccine (60+ or ) (1 - 1-dose 75+ series) 2016 Influenza Vaccine (Season Ended) 2025 HPV Aged Out No longer eligi ble based on patient's age to complete this topic Meningococcal conjugate mady nt 4 (MCV4) Aged Out No longer eligible b ased on patient's age to complete this topic RSV Immunization (<20 months) Aged Out No longer eligible based on patient's age to complete this topic
--- OUTSIDE RECORDS SUMMARY | 2025-04-03 11:19 | XMS_ITS | Clinical Summary ---
Author Organization [facility] [address] [place] [address] Phone Care Team Providers Care Egg Tester Name Role Phone Sy Ly MD Unavailable Floyd Olea MD Primary Care Provider [phone] Neto Sauceda MD Unavailable [phone] Allergies Active Allergy Reactions Criticality Noted Date Comments Penicillins Hives Medications rosiglitazone (AVANDIA) 8 mg tablet Take 8 mg by mouth daily. Active metformin (GLUCOPHAGE) 1,000 mg Take 1,000 mg by mouth 2 times daily. Active metoprolol (LOPRESSOR) 25 mg tablet Take 25 mg by mouth 2 times daily. Active glipiZIDE (GLUCOTROL) 10 mg Take 10 mg by mouth 2 times daily. Active valsartan (DIOVAN) 320 mg tablet Take 320 mg by mouth daily. Changed to Ibesartan due to recall. Active predniSONE (DELTASONE) 1 mg tablet Take 1 mg by mouth every evening. Active celecoxib (CELEBREX) 200 mg capsule Take 200 mg by mouth every evening. Active Methotrexate Sodium (METHOTREXATE) 2.5 mg DsPk Take by mouth. 8 x's a week Active folic acid (FOLVITE) 1 mg tablet Take 1 mg by mouth every evening. Active aspirin 81 mg tablet Take 81 mg by mouth daily. Active atorvastatin (LIPITOR) 80 mg tablet Take 80 mg by mouth daily. Active bimatoprost (LUMIGAN) 0.01 % Drop Apply to eye daily. Active Cetirizine (ZYRTEC) 10 mg Cap Take 10 mg by mouth daily. Active omeprazole (PRILOSEC) 20 mg Take 20 mg by mouth daily. Active nitroGLYCERIN (NITROQUICK) 0.[address] under the tongue as needed. Active rivaroxaban (XARELTO) 2.5 mg Oral Tablet Take 2.5 mg by mouth 2 times daily (with meals). Active fUROsemide (LASIX) 40 mg Oral Tablet Take by mouth every 12 hours. Once daily in am Active gabapentin (NEURONTIN) 300 mg Oral Capsule Take by mouth 3 times daily. Active Melatonin 3 mg Oral Tablet Take by mouth. Activ e pioglitazone (ACTOS) 30 mg Oral Tablet Take 30 mg by mouth daily. Active clopidogrel (PLAVIX) 75 mg Oral Tablet Take by mouth daily. Active insulin NPH (HUMULIN N,NOVOLIN N) 100 unit/mL SubQ Suspension Subcutaneous (Inject under the skin) 10 Units nightly. Active timolol (TIMOPTIC) 0.5 % Opht Drops Place 1 Drop into both eyes 2 times daily. Active acetaminophen (TYLENOL) 500 mg Oral TabletIndications:1 000 mg Take 500 mg by mouth 2 times daily. Active irbesartan (AVAPRO) 300 mg Oral TabletIndications:A therosclerosis of [place] arteries of extremities with intermittent claudication, right leg,History of transmetatarsal amputation of left foot (HCC),PAD (peripheral artery disease) Take 300 mg by mouth daily. 10/30/19 19 Active Active Problems Problem Noted Date Diagnosed Date History of transmetatarsal amputation of left fo ot 12/23/2018 PAD (peripheral artery disease) 11/17/2018 Overview (11/17/2018): Added automatically from request for surgery [id number] Type 2 diabetes mellitus, wi th long-term current use of insulin 04/14/2012 Hyperlipidemia 04/14/2012 Atherosclerosis of [place] ar teries of extremities with intermittent claudication, right leg Surgical History Surgery Date Site/Laterality Comments SPLENECTOMY HEMORRHOID SURGERY FOOT AMPUTATION THROUGH METATARSAL Left VASCULAR SURGERY CORONARY ARTERY BYPASS GRAFT x 4 in 1994 ANGIOPLASTY 12/22/2018 Right Right ileoFemoral endarterectomy with patch angioplasty Right profunda endartarectomy patch angioplasty Excisional biopsy right femoral lymph node; Surgeon: Mehdi Oviedo MD; Location: [facility]; Service: Vascular Medical devices from this surgery are in the Medical Devices section. 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 CAD (coronary artery disease) Family History Medical History Relation Name Comments Mental Illness Father Heart Failure Mother CHF Stroke Mother TIA Relation Name Status Comments Father Mother Social History Tobacco Use Types Packs/Day Years Used Date Smoking Tobacco: Former Cigarettes Q uit: 1976 Smokeless Tobacco: Never Comments:remotely quit tobac co use Alcohol Use Standard Drinks/Week Comments No 0 (1 standard drink = 0.6 oz pur e alcohol) remotely quit alcohol use Sex and Gender Information Value Date Recorded Sex Assigned at Not on file Legal Sex Male 3:25 AM EDT Gender Identity Not on file Sexual Orientation Not on file Obstetrics History Last Filed Vital Signs Vital Sign Reading Time Taken Comments Blood Pressure 129/68 08/07/2019 12:22 PM EDT Pulse 65 12/23/2018 12:15 PM EST Temperature 36.7 C (98 F) 12/23/2018 11:30 AM EST Respiratory Rate 14 12/23/2018 12:15 PM EST Oxygen Saturation 95% 12/23/2018 12:15 PM EST Inhaled Oxygen Concentration - - Weight 110.8 kg (244 lb 6 oz) 08/07/2019 12:21 P M EDT Height 182.9 cm (6') 08/07/2019 12:21 PM EDT Body Mass Index 33.14 08/07/2019 12:21 PM EDT Plan of Treatment Health Maintenance Due Date Last Done Comments Meningococcal Vaccine ACWY ( 1 - Risk 2-dose series) 1943 Wellness Exam Medicare 1944 COVID-19 Vaccine (#1) 1946 Lipids 1951 Meningococcal B Vaccine (1 o f 5 - Increased Risk) 1951 Diabetic Eye Exam 1959 DTaP/TDaP/Td (1 - Tdap) 1960 Pneumococcal Vaccine 50+ (1 of 2 - PCV) 1960 Zoster (1 of 2) 1960 RSV or 60+ (1 - 1-d ose 75+ series) 2016 Hemoglobin A1c 06/24/2019 12/22/2018 Microalbuminuria 12/23/2019 12/22/2018 Influenza Vaccine (Season Ended) 2025 Hepatitis B Vaccine Aged Out No longe r eligible based on patient's age to complete this topic Medical Devices Implanted Type Area Locker Room Clerk Device Identifier Shelf Expiration Date Model / Serial / Lot Cataract Lens Leg Stent Leg Stent Cardiac Stent Patch Vascular Biologic Xenosure 0.8cm X 8cm - [id number] Implanted:Qty: 1 on 12/22/2018 by Mehdi Oviedo MD at [facility] Right: Femoral Artery [employer] 04/20/2024 0.8P8 / / [id number] Patch Vascular Biologic Xenosure 0.8cm X 8cm - [id number] Implanted:Qty: 1 on 12/22/2018 by Mehdi Oviedo MD at [facility] Right: Femoral Artery [employer] VASCULAR 06/20/2024 0.8P8 / / [id number] Procedures Procedure Name Priority Date/Time Associated Diagnosis Comments MICROALBUMIN/CREATIN INE RATIO URINE Routine 12/22/2018 8:36 PM EST HEMOGLOBIN A1C Routine 12/22/2018 6:45 PM EST from Last 3 Months or Most Recently Relevant to Health Maintenance Results * MICROALBUMIN/CREATININE RATIO URINE (12/22/2018 8:36 PM EST) Urine Microalb <12.0 mg/L 12/22/2018 9:49 PM EST PREFERRED LAB [facility] [place] Urine Creatinine 12.4 mg/dL 12/23/19 19 9:49 PM EST PREFERRED [facility] [place] Ur Microalb/Creat 0 - 30 mg/g 12/22/2018 9:49 PM EST [facility] [place] Comment: Because the albumin level is below the level of detection in this urine specimen, the laboratory is unable to calculate a reliable albumin/creatinine ratio. Microalbuminuria is unlikely if the urine albumin concentration is less than 20- 30 mg/L in a random specimen. Urine STRUCTURE OF URINARY TRACT PROPER / Unknown 12/22/2018 8:36 PM EST 12/22/2018 8:36 PM EST Mehdi Oviedo MD URINE ORDERABLES Final Result Performing Organization Address City/[facility]/ZIP Co de Phone Number [facility] [address] [facility] , [place] [address] * (ABNORMAL) HEMOGLOBIN A1C (12/22/2018 6:45 PM EST) Hgb A1C 6.4(H) 4.2 - 5.6 % 12/22/2018 7:12 PM EST [facility] Est. Avg Glucose 137 mg/dL 12/22/2018 7:12 PM EST [facility] Blood VENOUS BLOOD / Unknown [facility] / Unknown 12/22/2018 6:45 PM EST 12/22/2018 6:48 PM EST Narrative PREFERRED [facility] - 12/22/2018 7:12 PM EST REFERENCE RANGE: Normal: 4.0-5.6% Pre-diabetes: 5.7-6.4% Provisional diagnosis of diabetes: >6.4% Hgb F>10% and anything which shortens red cell survival, such as hemolytic anemia, or unstable hemoglobin variants such as HbSS, HbSC, or HbCC, will lower the HbA1c value associated with a given level of glycemic control. Mehdi Oviedo MD CHEMISTRY ORDERABLES Final Re sult Performing Organization Address City/[facility] Co de Phone Number [facility] [address] [facility] , [place] [address] from Last 3 Months or Most Recently Relevant to Health Maintenance Insurance MEDICARE [place] PART A AND B SUPPLEMENTAL MEDICARE [place] PART A AND B SUPPLEMENTAL Advance Directives For more information, please contact: [phone] Documents on File Type Date Recorded Patient Screedman/Laborer Expl anation ADVANCE DIRECTIVE 12/22/2018 10:35 AM Care Teams Egg Tester Relationship Specialty Start Date End Date Floyd Olea MD [address] [place] [address] [place] [id number] PCP - General Internal Medicine 04/14/12 Sy Ly MD Surgeon Surgery-Vascular Surgery 11/09/11 Neto Sauceda MD [address] [facility] [address] [place] [id number] Consulting Physician Internal Medicine-Cardiovascular Disease 11/14/18
--- OUTSIDE RECORDS SUMMARY | 2025-04-03 11:19 | XMS_ITS | Referral Summary ---
Author Organization [facility] Address [address] [place] [address] [place] [address] Care Team Providers Care Line Tender Flakeboard Name Role Phone Unavailable Primary Care Provider Unavailabl e Social History Tobacco Use Types Packs/Day Years Used Date Smoking Tobacco: Never Assessed Sex and Gender Information Value Date Recorded Sex Assigned at Not on file Legal Sex Male 9:13 PM EDT Gender Identity Not on file Sexual Orientation Not on file Plan of Treatment Not on file
== END 2025-04-02 23:59 | disposition home or self-care (01) ==
LOC: LAB.DROPOF 04-03 11:15
PROVIDERS: PCP Internal Medicine; Visit Provider Internal Medicine
DX: E11.42 Type 2 diabetes mellitus with diabetic polyneuropathy (principal); E11.59 Type 2 diabetes mellitus with other circulatory complications; I10 Essential (primary) hypertension; E78.2 Mixed hyperlipidemia; D64.9 Anemia, unspecified
CPT/HCPCS: 80053; 80061; 82043; 82570; 82607; 83036; 83540; 83550; 85025

== ENCOUNTER 2025-04-30 05:23 | Emergency (ER) | payer MEDICARE, SELFPAY ==
--- OUTSIDE RECORDS SUMMARY | 2025-03-05 10:12 | XMS_ITS | Continuity of Care Document ---
Author Name [facility] Organization [facility] Care Team Providers Care Bright Cutter Name Role Phone [facility] Unavailable Unavailable Problems Combined list of problems from [facility] and [facility] facilities. It does not include entries that were removed or entered in error. Problem Status Onset Date Problem Type Date of Resolution Comments Source AF - Atrial Fibrillation ([facility] [id number]) Active Condition [facility] Chronic ischemic heart disease Active Condition [facility] Diabetes mellitus type 2 Active Condition [facility] Glaucoma Active Condition [facility] Peripheral vascular disease Active Condition [facility] Rheumatoid arthritis Active Condition [facility] Diagnosis: ICD-10-CM Z13.9 Encounter for screening, unspecified Active Diagnosis [facility] Medications Combined list of outpatient medications from [facility] and [facility] facilities.Medications provided include 1) outpatient medications from the last 15 months, and 2) patient-reported medications. Medication Details Route Status Patient Instructions Prescription Expires Prescription Number Last Dispense Date Ordering Provider Order Date Order Qty Source APIXABAN 5MG TAB TAKE ONE-HALF TABLET BY MOUTH TWICE A DAY ORAL ACTIVE DOWNS,TAR A N 2021 [place] [facility] ASCORBIC ACID 500MG TAB TAKE ONE TABLET BY MOUTH DAILY ORAL ACTIVE DOWNS,TAR A N 2021 [place] [facility] ASPIRIN 81MG TAB,EC TAKE ONE TABLET BY MOUTH DAILY ORAL ACTIVE DOWNS,TAR A N 2021 [place] [facility] CALCIUM 500MG TAB TAKE TWO TABLETS BY MOUTH TWICE A DAY ORAL ACTIVE DOWNS,TAR A N 2021 [place] [facility] CELECOXIB 200MG CAP TAKE 1 CAPSULE BY MOUTH DAILY ORAL ACTIVE DOWNS,TAR A N 2021 [place] [facility] EMPAGLIFLOZ IN 10MG TAB TAKE ONE TABLET BY MOUTH EVERY MORNING ORAL ACTIVE DOWNS,TAR A N 2021 [place] [facility] FOLIC ACID 1MG TAB TAKE ONE TABLET BY MOUTH EVERY MORNING ORAL ACTIVE DOWNS,TAR A N 2021 [place] [facility] FUROSEMIDE 40MG TAB TAKE ONE TABLET BY MOUTH DAILY ORAL ACTIVE DOWNS,TAR A N 2021 [place] [facility] GABAPENTIN 300MG CAP TAKE 1 CAPSULE BY MOUTH THREE TIMES A DAY ORAL ACTIVE DOWNS,TAR A N 2021 [place] [facility] GLIPIZIDE 10MG TAB TAKE ONE TABLET BY MOUTH DAILY ORAL ACTIVE DOWNS,TAR A N 2021 [place] [facility] INSULIN NPH (NOVOLIN N) INJ INJECT UNDER THE SKIN PRN SUBCUT ANEOUS ACTIVE ,TAR A N 2021 [place] [facility] IRBESARTAN 300MG TAB TAKE ONE-HALF TABLET BY MOUTH DAILY ORAL ACTIVE DOWNS,TAR A N 2021 [place] [facility] MAGNESIUM GLUCONATE 250MG TAB TAKE TWO TABLETS BY MOUTH DAILY ORAL ACTIVE ,TAR A N 2021 [place] [facility] MELATONIN 5MG CAP/TAB TAKE 1 CAP(S)/T AB BY MOUTH AT BEDTIME ORAL ACTIVE DOWNS,TAR A N 2021 [place] [facility] METFORMIN HCL 1000MG TAB TAKE ONE TABLET BY MOUTH TWICE A DAY ORAL ACTIVE DOWNS,TAR A N 2021 [place] [facility] METHOTREXAT E NA 2.5MG TAB TAKE 8 TABLETS BY MOUTH WEEKLY ORAL ACTIVE DOWNS,TAR A N 2021 [place] [facility] METOPROLOL TARTRATE 50MG TAB TAKE ONE-HALF TABLET BY MOUTH TWICE A DAY ORAL ACTIVE DOWNS,TAR A N 2021 [place] [facility] OMEPRAZOLE 20MG CAP,EC TAKE 1 CAPSULE BY MOUTH ONCE A DAY 30 MINUTES BEFORE A MEAL ORAL ACTIVE DOWNS,TAR A N 2021 [place] [facility] PREDNISONE 1MG TAB TAKE ONE TABLET BY MOUTH EVERY MORNING ORAL ACTIVE DOWNS,TAR A N 2021 [place] [facility] TIMOLOL MALEATE 0.5% SOLN,OPH PUT 1 DROP IN EYE(S) TWICE A DAY OPHTHA LMIC ACTIVE DOWNS,TAR A N 2021 [place] [facility] Allergies, Adverse Reactions, Alerts Combined list of allergies from [facility] facilities. It does not include entries that were removed or entered in error. Substance Category Reaction Severity Reaction type Status Date Reported Comments Source PENICILLIN Propensity to adverse reactions to drug (finding) Eruption active 7 [facility] Immunizations Combined list of available immunizations from the [facility] facilities. Immunization Series Date Given Administered By Site Reaction Lot Number CVX Code Drug Production Machine Computer Operator Status Comments Source INFLUENZA A & B (HISTORICAL) 2015 88 complet ed [place] [facility] Encounters Combined list of: 1) Encounters from [facility] facilities going backup to the last 18 months, not all [place] inpatient encounters are included; 2) Encounters from the [facility] facilities going backup to 280 months. Location Location Details Encounter Type Encounter Number Reason For Visit Attending Provider ADM Date DC Date Status Disposition Source [facility] BRIEF [facility]UN[facility] TECH-[facility] [id number] Diagnos is: ICD-10- CM Z13.9 Encount er for screeni vida, breti KARAN Norris A 03/05 [facility] [facility] Social History Combined list of available smoking, tobacco, and other social history from [facility]. Social History Type Response Date Comment Sourc e Tobacco smoking status NHIS NM-TOBACCO FORMER USER 02/02/2022 [facility] History of tobacco use NM-TOBACCO QUIT 15 YRS OR MORE 02/02/2022 [facility] History of tobacco use V9 QUIT TOBACCO >7 YEARS AGO 04/20/2017 [facility]
[2025-04-30] VITALS (7 sets, daily range): BP systolic 110–135; BP diastolic 55–67; PULSE 64–87; RESP 13–18; TEMP 36.6–36.9; O2SAT 96–100; BMI 23.0
--- NOTE | 2025-04-30 05:28 | ED_ITS ---
Discharge Plan Disposition Patient Disposition: Home, Self-Care Prescriptions Prescriptions: No Action prednisone 1 mg tablet 1 mg PO DAILY Qty: 90 1RF omeprazole 20 mg capsule,delayed release(DR/EC) See Rx Instructions .ROUTE .COMPLEX Qty: 90 1RF Dose Instruction: TAKE 1 CAPSULE BY MOUTH ONCE DAILY Rx Instructions: TAKE 1 CAPSULE BY MOUTH ONCE DAILY folic acid 1 mg tablet See Rx Instructions .ROUTE .COMPLEX Qty: 90 1RF Dose Instruction: TAKE 1 TABLET BY MOUTH ONCE DAILY Rx Instructions: TAKE 1 TABLET BY MOUTH ONCE DAILY metformin 1,000 mg tablet See Rx Instructions .ROUTE .COMPLEX Qty: 180 1RF Dose Instruction: TAKE 1 TABLET BY MOUTH TWICE DAILY FOR DIABETES Rx Instructions: TAKE 1 TABLET BY MOUTH TWICE DAILY FOR DIABETES celecoxib 200 mg capsule See Rx Instructions .ROUTE .COMPLEX Qty: 90 1RF Dose Instruction: TAKE 1 CAPSULE BY MOUTH ONCE DAILY Rx Instructions: TAKE 1 CAPSULE BY MOUTH ONCE DAILY furosemide [Lasix] 40 mg tablet 40 mg PO DAILY Qty: 90 1RF atorvastatin [Lipitor] 80 mg tablet 80 mg PO HS Qty: 90 1RF zolpidem 5 mg tablet 5 mg PO HS PRN (Reason: sleep) Qty: 30 2RF gabapentin 300 mg capsule See Rx Instructions .ROUTE .COMPLEX Qty: 270 1RF Dose Instruction: TAKE 1 CAPSULE BY MOUTH EVERY 8 HOURS FOR NEUROPATHY Rx Instructions: TAKE 1 CAPSULE BY MOUTH EVERY 8 HOURS FOR NEUROPATHY methotrexate sodium 2.5 mg tablet 15 mg PO WEEKLY 84 Days Qty: 72 1RF Rx Instructions: 6 tablets every Tuesday aspirin [Chely Low Dose Aspirin] 81 mg tablet,delayed release (DR/EC) 81 mg PO DAILY melatonin 10 mg tablet 5 mg PO HSP PRN (Reason: Sleep) timolol maleate 0.5 % drops 1 drp Eye-Both BID (DME) pen needle, diabetic [BD Ultra-Fine Mini Pen Needle] 31 gauge x 3/16 needle See Rx Instructions .Route Qty: 1200 3RF Rx Instructions: As directed Xarelto 2.5 mg tablet See Rx Instructions .ROUTE .COMPLEX Qty: 180 3RF Dose Instruction: TAKE 1 TABLET BY MOUTH TWICE DAILY FOR ANTICOAG Rx Instructions: TAKE 1 TABLET BY MOUTH TWICE DAILY FOR ANTICOAG Jardiance 25 mg tablet 25 mg PO DAILY Qty: 90 1RF Referrals Follow up/Referrals: Floyd Olea MD [Primary Care Provider, Medical] - See instructions Activity Restrictions/Add. Instructions Additional Instructions/Restrictions: Please follow-up with your primary care provider. Please return to the emergency department if you develop any new or worsening symptoms or become concerned for your health. Clinical Impressions Clinical Impression: Back pain Qualifiers: Back pain location: thoracic back pain Chronicity: acute Back pain laterality: midline Qualified Code(s): M54.6 - Pain in thoracic spine Instructions Patient Instructions: DI for Low Back Pain Print Language Print Language: Togolese Discharge ED Provider: Tolu Granados General Adult HPI General Chief complaint: Back Pain/Injury Stated complaint: back pain Time Seen by Provider: 04/30/25 05:28 History of Present Illness HPI narrative: 84-year-old male with history of coronary artery disease status post CABG, Be[place]ies, cholelithiasis, rheumatoid arthritis presents for back pain. He reports he noticed it when he was sleeping a few hours ago. He came to get checked out because when he had his heart attack it presented only with back pain. He reports pain is located in the center below his shoulder blades. Reports it is currently mild. Denies any chest pain abdominal pain shortness of breath nausea vomiting. He tried to sleep it off and it did not seem to get better so he came in. Related Data Home Medications ?Medication ?Instructions ?Recorded ?Confirmed aspirin 81 mg tablet,delayed 81 mg PO DAILY heart, 12/1104/30/25 release (Chely Low Dose Aspirin) melatonin 10 mg tablet 5 mg PO HSP PRN Sleep 04/30/25 timolol maleate 0.5 % eye drops 1 drp Eye-Both BID 07/1704/30/25 Previous Rx's ?Medication ?Instructions ?Recorded pen needle, diabetic 31 gauge x #1,200 ea 10/11/2401/06 (BD Ultra-Fine Mini Pen Needle) rivaroxaban 2.5 mg tablet (Xarelto) See Rx Instruction s .Route 11/13/24 .COMPLEX #180 tabs prednisone 1 mg tablet 1 mg PO DAILY #90 tabs 12/31 empagliflozin 25 mg tablet 25 mg PO DAILY #90 tabs 04/17 (Jardiance) atorvastatin 80 mg tablet (Lipitor) 80 mg PO HS Choles terol #90 tabs 04/02/25 celecoxib 200 mg capsule See Rx Instructions .Route 0 04/02/25 .COMPLEX #90 caps folic acid 1 mg tablet See Rx Instructions .Route 0 04/02/25 .COMPLEX #90 tabs furosemide 40 mg tablet (Lasix) 40 mg PO DAILY Fluid # 90 tabs 04/02/25 gabapentin 300 mg capsule See Rx Instructions .Route 0 04/02/25 .COMPLEX #270 caps metformin 1,000 mg tablet See Rx Instructions .Route 0 04/02/25 .COMPLEX #180 tabs methotrexate sodium 2.5 mg tablet 15 mg (6 x 2.5 mg) P O WEEKLY Pain 04/02/25 84 days #72 tabs omeprazole 20 mg capsule,delayed See Rx Instructions . Route 04/02/25 release .COMPLEX #90 caps zolpidem 5 mg tablet 5 mg PO HS PRN sleep #30 tab s 04/02/25 Allergies Allergy/AdvReac Type Severity Reaction Status Date / Time Penicillins Allergy Severe S-BLISTERING Verified 04/02/25 08:55 [facility] Disclaimer: The information contained in this section may have been updated after the patient was seen, as this information can be updated by other users. Medical History Peripheral vascular disease, unspecified History of left heart catheterization Diabetes mellitus, type 2 Hypercholesteremia Amputation at midfoot Edema Surgical History Aortocoronary bypass status Social History Smoking Status: Never smoker second hand exposure: No alcohol intake: never counseling provided: none substance use type: denies use current occupational status: retired Travel in the last 8 weeks?: None household members: spouse housing: house current occupational exposures/hazards: No caffeine: Yes Have you lived/traveled outside US in past 30 days?: No Contact w/someone who lives/traveled outside US past 30 days?: No Exposure to someone with infectious disease in past 14 days?: No Do you have a fever (greater than 100.4 F or 38 C)?: No Have you tested positive for COVID-19?: No Exposed to someone with COVID-19 in past 14 days?: No Do you have a sore throat?: No Do you have a cough?: No Do you have any weakness?: No Do you have any diarrhea?: No Are you experiencing any unusual bleeding?: No Do you have any muscle aches/pain?: Yes Do you have any abdominal pain?: No Are you experiencing loss of taste or smell?: No Other Medical History Have you received the Flu Vaccine for this season: No Have you received the Pneumonia Vaccine: Yes ROS Obtained: Yes All systems reviewed & no additional complaints except as documented Physical Exam General General appearance: alert and in no apparent distress Head Head exam: atraumatic and normocephalic Eye Eye exam: Present normal appearance, PERRL and EOMI ENT ENT exam: Present normal oropharynx and normal external ear exam Neck Neck exam: Present normal inspection and full ROM Chest Chest inspection: Present normal inspection and symmetric chest wall rise; Absent tenderness Respiratory Respiratory exam: Present normal lung sounds bilaterally; Absent respiratory distress Cardiovascular Cardiovascular exam: Present regular rate and normal rhythm Abdominal Exam Abdominal exam: Present soft; Absent distention, tenderness or guarding Extremities Exam Extremities exam: Present normal inspection; Absent edema or joint swelling Back Exam Back exam: Present normal inspection; Absent tenderness Neurological Exam Neurological exam: Present alert and oriented X3; Absent motor sensory deficit Psychiatric Psychiatric exam: Present normal affect and normal mood Skin Skin exam: Present warm, dry and normal color Lymphatic Lymphatic Findings: no adenopathy Medical Decision Making Medical Records Medical records reviewed: Yes I reviewed the patient's medical records. Screening: Per USPSTF and CDC recommendations, given the prevalence of disease in our region, it is our hospital?s policy to screen for HIV and viral Hepatitis for all patients aged 18 and over and those with ongoing risk factors. Hollis Inquiry Pt receiving controlled substance: No Hollis was queried for this patient: No Vital Signs: 04/30/25 05:32 04/30/25 05:45 04/30/25 06:00 Temperature 97.9 F Temperature Source Oral Pulse Rate 87 Pulse Rate [Left Radial] 81 Respiratory Rate 18 14 Blood Pressure 135/55 L 119/57 L Blood Pressure [Right Arm] 135/55 L Blood Pressure Mean 77 Blood Pressure Mean [Right Arm] 81 Blood Pressure Source Blood Pressure Source [Right Arm] Automatic Cuff Blood Pressure Position 02 Sat by Pulse Oximetry 100 96 Oxygen Delivery Method Room Air 04/30/25 06:10 04/30/25 06:15 04/30/25 06:26 Temperature Temperature Source Pulse Rate 68 Pulse Rate [Left Radial] Respiratory Rate 18 16 Blood Pressure 110/59 L 128/67 115/59 L Blood Pressure [Right Arm] Blood Pressure Mean 77 Blood Pressure Mean [Right Arm] Blood Pressure Source Automatic Cuff Blood Pressure Source [Right Arm] Blood Pressure Position Sitting 02 Sat by Pulse Oximetry 98 Oxygen Delivery Method Room Air 04/30/25 06:46 04/30/25 06:46 Temperature 98.5 F Temperature Source Oral Pulse Rate 64 86 Pulse Rate [Left Radial] Respiratory Rate 16 13 Blood Pressure 114/60 114/60 Blood Pressure [Right Arm] Blood Pressure Mean Blood Pressure Mean [Right Arm] Blood Pressure Source Automatic Cuff Blood Pressure Source [Right Arm] Blood Pressure Position Sitting 02 Sat by Pulse Oximetry 96 Oxygen Delivery Method Room Air Room Air Lab Data Lab results reviewed: Yes I reviewed the patient's lab results. Lab Results 04/30/25 05:57: WBC 16.5 H, RBC 4.02 L, Hgb 11.8 L, Hct 36.8 L, MCV 91.5, MCH 29.4, MCHC 32.1, RDW 20.4 H, Plt Count 491 H, MPV 10.3, Neut % (Auto) 80.8 H, L ymph % (Auto) 5.7 L, Phillips % (Auto) 8.0, Eos % (Auto) 4.2, Baso % (Auto) 0.8, N eut # (Auto) 13.4 H, Lymph # (Auto) 1.0, Phillips # (Auto) 1.3 H, Eos # (Auto) 0.7 H , Baso # (Auto) 0.1, Sodium 138, Potassium 4.1, Chloride 91 L, Carbon Dioxide 31 H, Anion Gap 20.1 H, BUN 21 H, Creatinine 0.80, Estimated Creat Clear 61, Estimated GFR 92, Est GFR ( Amer) 112, Glucose 194 H, Calcium 9.4, Total Bilirubin 1.1, AST 105 H, ALT 50, Alkaline Phosphatase 115, Troponin I < 0.01, Total Protein 7.9, Albumin 4.6, Globulin 3.3 H, Albumin/Globulin Ratio 1.4 04/30/25 05:57 04/30/25 05:57 Orders (Tests/Meds): ED MEDICATIONS Discontinued Medications Generic Name Dose Route Start Last Admin Trade Name Freq PRN Reason Stop Dose Admin Aspirin 324 mg 04/30/25 05:38 04/30/25 06:06 Aspirin 81mg Chewable Tablet PO 04/30/25 05:39 324 mg ONCE ONE Administration Belladonna Alkaloids 60 ml 04/30/25 05:38 04/30/25 06:06 Belladonna Alkaloids 60 Ml Ml PO 04/30/25 05:39 60 ml ONCE ONE Administration ORDERS Category Date Time Status CXR --portable [XR chest portable] Stat Exams 04/30/25 05:39 Taken CBC w/Auto Diff [Complete Blood Count Auto Diff] Stat Lab 04/30/25 05:57 Completed CMP [Comprehensive Metabolic Panel] Stat Lab 04/30/25 05:57 Completed HIV Combo Stat Lab 04/30/25 05:57 Received Hepatitis C Ab Qual. W/ RFX Stat Lab 04/30/25 05:57 Received Trop I [Troponin I] Stat Lab 04/30/25 05:57 Completed 12-lead EKG Request [ECG Request] Stat Y 04/30/25 05:43 Ordered ECG Data Tracing #1: I reviewed this ECG and interpreted as documented below: Sinus rhythm with first-degree AV block, right bundle branch block, similar to prior EKG ECG initial impression date: 04/30/25 ECG initial impression time: 05:40 HEART Score History (anamnesis): Slightly suspicious ECG: Normal Age: >65 years Risk factors: Atherosclerosis history Troponin: </= normal limit HEART Score: 4 Medical Decision Narrative: 84-year-old male with history of diabetes, coronary artery disease, rheumatoid arthritis presents for several hours of back pain. History was obtained via interactive discussion with patient. On arrival, patient is [afebrile, hemodynamically stable, satting appropriately, alert, oriented x4, GCS 15], moving all extremities spontaneously. Full physical exam performed and significant for no significant physical exam abnormalities Differential includes but is not limited to musculoskeletal back pain, ACS, acute aortic syndrome. Patient was given aspirin, Tylenol, GI cocktail for symptomatic management and correction of underlying abnormalities. Workup initiated including CBC CMP troponin EKG chest x-ray. On re-evaluation, patient reports complete symptomatic resolution Laboratory workup independently interpreted by me and significant for negative initial troponin, no significant electrolyte derangement, mild leukocytosis. Imaging independently interpreted by me and significant for clear lungs bilaterally without focal opacity. See radiology read for full review of final results. Repeat cardiac enzyme was considered, but deemed unnecessary due to low concern for ACS, stable EKG from prior, negative initial troponin, no chest pain. CTA chest was considered but due to the story given history and exam. Given patient history, exam and workup, patient's presentation most likely represents musculoskeletal back pain. Patient was discharged in stable condition. Return precautions given.. Procedures Risk/Benefits of Procedure(s) Were Explained: Yes Critical Care Critical Care Time Critical Care Time: No
--- OUTSIDE RECORDS SUMMARY | 2025-04-30 05:34 | XMS_ITS | Referral Summary ---
Author Organization [facility] Address [address] [place] [address] [place] [address] Care Team Providers Care Bank Messenger Name Role Phone Unavailable Primary Care Provider [...]
--- OUTSIDE RECORDS SUMMARY | 2025-04-30 05:34 | XMS_ITS | Clinical Summary ---
Author Organization [facility] [address] [place] [address] Phone Care Team Providers Care Locomotive Engineer Diesel Name Role Phone Sy Ly MD Unavailable Floyd Olea MD Primary Care Provider [phone] Neto Sauceda MD Unavailable [phone] Allergies Active Allergy Reactions Criticality Noted Date [...] (AVAPRO) 300 mg Oral TabletIndications:A therosclerosis of [place] arteries of extremities with intermittent claudication, right leg,History of transmetatarsal amputation of left foot (HCC),PAD (peripheral artery disease) Take 300 mg by mouth daily. 10/30/19 19 Active Active Problems Problem Noted Date Diagnosed Date History of transmetatarsal amputation of left fo ot 12/23/2018 PAD (peripheral artery disease) 11/17/2018 Overview (11/17/2018): Added automatically from request for surgery [id number] Type 2 diabetes mellitus, wi th long-term current use of insulin 04/14/2012 Hyperlipidemia 04/14/2012 Atherosclerosis of [place] ar teries of extremities with intermittent claudication, right leg Surgical History Surgery Date Site/Laterality Comments SPLENECTOMY HEMORRHOID SURGERY FOOT AMPUTATION THROUGH METATARSAL Left VASCULAR SURGERY CORONARY ARTERY BYPASS GRAFT x 4 in 1994 ANGIOPLASTY 12/22/2018 Right Right ileoFemoral endarterectomy with patch angioplasty Right profunda endartarectomy patch angioplasty Excisional biopsy right femoral lymph node; Surgeon: Mehdi Oviedo MD; Location: [facility] MAIN OR; Service: Vascular Medical devices from [...] 1951 Meningococcal B Vaccine (1 o f 4 - Increased Risk) 1951 Diabetic Eye Exam 1959 DTaP/TDaP/Td (1 - Tdap) 1960 Pneumococcal Vaccine 50+ (1 of 2 - PCV) 1960 Zoster (1 of 2) 1960 RSV or 60+ (1 - 1-d ose 75+ series) 2016 Hemoglobin A1c 06/24/2019 12/22/2018 Kidney Health: uACR 12/23/2019 12/22/2018 Kidney Health: eGFR 12/24/2019 12/23/2018 Influenza Vaccine (#1) 2025 Hepatitis B Vaccine Aged Out No longe r eligible based on patient's age to complete this topic Medical Devices Implanted Type Area Director [employer] Device Identifier Shelf Expiration Date Model / Serial / Lot Cataract Lens Leg Stent Leg Stent Cardiac Stent Patch Vascular Biologic Xenosure 0.8cm X 8cm - [id number] Implanted:Qty: 1 on 12/22/2018 by Mehdi Oviedo MD at [facility] Right: Femoral Artery LEMAITRE VASCULAR 04/20/2024 0.8P8 / / [id number] Patch Vascular Biologic Xenosure 0.8cm X 8cm - [id number] Implanted:Qty: 1 on 12/22/2018 by Mehdi Oviedo MD at [facility] Right: Femoral Artery LEMAITRE VASCULAR 06/20/2024 0.8P8 / / [id number] Procedures Procedure Name Priority Date/Time Associated Diagnosis Comments BASIC METABOLIC PANEL Routine 12/23/2018 5:28 AM EST MICROALBUMIN/CREATIN INE RATIO URINE Routine 12/22/2018 8:36 PM EST HEMOGLOBIN A1C Routine 12/22/2018 6:45 PM EST from Last 3 Months or Most Recently Relevant to Health Maintenance Results * (ABNORMAL) BASIC METABOLIC PANEL (12/23/2018 5:28 AM EST) Sodium 135(L) 136 - 145 mmol/L 12/23/2018 6:05 AM EST [facility] Potassium 5.1(H) 3.5 - 5.0 mmol/L 12/23/2018 6:05 AM EST [facility] Chloride 102 98 - 107 mmol/L 12/23/2018 6:05 AM EST [facility] Total CO2 27 22 - 29 mmol/L 12/23/2018 6:05 AM EST [facility] Anion Gap 6(L) 7 - 16 mmol/L 12/23/2018 6:05 AM EST [facility] Calcium 8.7(L) 8.8 - 10.2 mg/dL 12/23/2018 6:05 AM EST [facility] Glucose Lvl 161(H) 82 - 100 mg/dL 12/23/2018 6:05 AM EST [facility] BUN 13 8 - 23 mg/dL 12/23/2018 6:05 AM EST [facility] Creatinine 0.97 0.67 - 1.30 mg/dL 12/23/2018 6:05 AM EST [facility] GFR Afr Am 87 >=60 mL/min/1.7 3 m2 12/23/2018 6:05 AM EST [facility] GFR Non Afr Am 75 >=60 mL/min/1.7 3 m2 12/23/2018 6:05 AM EST [facility] Comment: This estimated GFR was calculated using CKD-EPI equation which is modified based on ethnicity for Non Americans and Americans. Both results are reported since it is not always possible to determine the patient's ethnicity. This equation should only be used for individuals 18 and older. It has not been validated for use with the elderly (>70 years), women, or in some racial or ethnic subgroups, such as Hispanics. The equation will be less accurate in people with differences in nutritional status or muscle mass. Blood VENOUS BLOOD / Unknown Venipuncture / Unknown 12/23/2018 5:28 AM EST 12/23/2018 5:31 AM EST us Mehdi Oviedo MD CHEMISTRY ORDERABLES Final Re sult [facility] [address] , [place] [address] * MICROALBUMIN/CREATININE RATIO URINE (12/22/2018 8:36 PM EST) Urine Microalb <12.0 mg/L 12/22/2018 9:49 PM EST [facility] Urine Creatinine 12.4 mg/dL 12/23/19 9:49 PM EST [facility] Ur Microalb/Creat 0 - 30 mg/g 12/22/2018 9:49 PM EST [facility] Comment: Because the albumin level is below [...] URINE ORDERABLES Final Result Performing Organization Address [facility] Co de Phone Number [employer] [address] [place] [address] , [place] [address] * (ABNORMAL) HEMOGLOBIN A1C (12/22/2018 6:45 PM EST) Hgb A1C 6.4(H) 4.2 - 5.6 % 12/22/2018 7:12 PM EST [facility] Est. Avg Glucose 137 mg/dL 12/22/2018 7:12 PM EST [facility] Blood VENOUS BLOOD / Unknown Butterfly / Unknown 12/22/2018 6:45 PM EST 12/22/2018 6:48 PM EST Narrative [facility] - 12/22/2018 7:12 PM EST REFERENCE RANGE: Normal: 4.0-5.6% Pre-diabetes: 5.7-6.4% Provisional diagnosis of diabetes: >6.4% Hgb F>10% and anything which shortens red cell survival, such as hemolytic anemia, or unstable hemoglobin variants such as HbSS, HbSC, or HbCC, will lower the HbA1c value associated with a given level of glycemic control. Mehdi Oviedo MD CHEMISTRY ORDERABLES Final Re sult Performing Organization Address [facility] Co de Phone Number [employer] [facility] [address] , [place] [address] from Last 3 Months or Most Recently Relevant to Health Maintenance Insurance MEDICARE [place] PART A AND B SUPPLEMENTAL MEDICARE [place] PART A [place] B SUPPLEMENTAL Advance Directives For more information, please contact: [phone] Documents on File Type Date Recorded Patient Claims Service Adjustor Expl anation ADVANCE DIRECTIVE 12/22/2018 10:35 AM Care Teams Locomotive Engineer Diesel Relationship Specialty Start Date End Date Floyd Olea MD [address] [place] [address] [place] [id number] PCP - General Internal Medicine 04/14/12 Sy Ly MD Surgeon Surgery-Vascular Surgery 11/09/11 Neto Sauceda MD [address] [place] [address] [place] [id number] Consulting Physician Internal Medicine-Cardiovascular Disease 11/14/18
--- OUTSIDE RECORDS SUMMARY | 2025-04-30 05:34 | XMS_ITS | Clinical Summary ---
Author Organization [facility] Address [address] [place] [address] Care Team Providers Care Ash Conveyor Operator Name Role Phone Unavailable Primary Care Provider [...]
--- NOTE | 2025-04-30 05:39 | XR_ITS ---
PROCEDURE INFORMATION: Exam: XR Chest Exam date and time: 04/30/2025 6:03 AM Age: 84 years old Clinical indication: Other: Thoracic back pain TECHNIQUE: Imaging protocol: Radiologic exam of the chest. Views: 1 view. COMPARISON: CR XR CHEST PORTABLE 08/02/2022 2:31 PM FINDINGS: Lungs: Patchy opacity in the right lung base likely represents atelectasis or infection. Pleural spaces: Unremarkable. No pleural effusion. No pneumothorax. Heart/Mediastinum: Unremarkable. No cardiomegaly. Bones/joints: Unremarkable. IMPRESSION: Patchy opacity in the right lung base likely represents atelectasis or infection.
--- NOTE | 2025-04-30 05:40 | ECG_ITS ---
APPROVED REPORT Exam: Resting ECG HR:88 bpm ECG Measurements Heart Rate 88 AXES UT 255 P 55 QRSd 159 QRS 49 QT 403 T 38 QTc 449 Conclusion SINUS RHYTHM WITH FIRST DEGREE AV BLOCK POSSIBLE LEFT ATRIAL ENLARGEMENT [-0.1mV P-WAVE IN V1/V2] RIGHT BUNDLE BRANCH BLOCK [120+ ms QRS DURATION, UPRIGHT V1, 40+ ms S IN I/aVL/V4/V5/V6] ANTEROSEPTAL MYOCARDIAL INFARCTION , OF INDETERMINATE AGE [40+ ms Q WAVE IN V1-V4] ABNORMAL ECG INTERPRETATION BASED ON A DEFAULT AGE OF 40 YEARS Electronically signed by : REGINA RIVERA, 05/01/2025 07:24:14
--- NOTE | 2025-04-30 06:04 | PC.NURSE ---
pt reports he is no longer having pain at this time.
[2025-04-30] MEDS: ASPIRIN 81MG CHEWABLE TABLET 324 MG PO (06:06)
[2025-04-30] MEDS: BELLADONNA ALKALOIDS 60 ML ML PO (06:06)
[2025-04-30 06:11] LABS: Hematocrit 36.8 % (42.0-52.0); Hemoglobin 11.8 g/dL (14.1-18.0); Immature Granulocytes % 0.5 %; Mean Corpuscular HGB Conc 32.1 g/dL (31.8-35.4); Mean Corpuscular Hemoglobin 29.4 pg (27.0-31.2); Mean Corpuscular Volume 91.5 fl (80-94); Nucleated Red Blood Cells % 0.8 %; Platelet Count 491 K/mm3 (142-424); Red Blood Count 4.02 M/mm3 (4.60-6.20); Red Cell Distribution Width-SD 66.7 fL; White Blood Count 16.5 K/mm3 (4.8-10.8)
[2025-04-30 06:20] LABS: Alanine Aminotransferase 50 U/L (12-78); Albumin Level 4.6 g/dl (3.5-5.0); Albumin/Globulin Ratio 1.4 (1.1-1.8); Alkaline Phosphatase 115 U/L (38-126); Anion Gap 20.1 mEq/L (5-15); Aspartate Amino Transferase 105 U/L (17-59); Bilirubin,Total 1.1 mg/dl (0.2-1.3); Blood Urea Nitrogen 21 mg/dl (9-20); Calcium 9.4 mg/dl (8.4-10.2); Carbon Dioxide 31 mmol/L (22.0-30.0); Chloride 91 mmol/L (98-107); Creatinine Clearance Estimated 61 mL/min (50-200); Creatinine,Serum 0.80 mg/dl (0.66-1.25); Estimated Glomerular Filt Rate 92 ml/min (>60); GFR (African American) 112 ML/MIN (>60); Globulin 3.3 g/dL (1.3-3.2); Glucose 194 mg/dl (74-100); Potassium 4.1 mmoL/L (3.5-5.1); Sodium 138 mmol/L (136-145); Total Protein,Serum 7.9 g/dl (6.3-8.2)
[2025-04-30 06:42] LABS: Troponin I < 0.01 ng/ml (0.00-0.034)
[2025-04-30 09:57] LABS: Hepatitis C Ab Qual. W/ RFX NEGATIVE (Negative)
== END 2025-04-30 06:52 | disposition home or self-care (01) ==
PROVIDERS: Emergency Provider Emergency Medicine; PCP Internal Medicine
DX: M54.6 Pain in thoracic spine (principal); I44.0 Atrioventricular block, first degree; I45.10 Unspecified right bundle-branch block; I73.9 Peripheral vascular disease, unspecified; Z11.59 Encounter for screening for other viral diseases; Z11.4 Encounter for screening for human immunodeficiency virus [HIV]; Z86.79 Personal history of other diseases of the circulatory system
CPT/HCPCS: 71045; 80053; 84484; 85025; 86803; 87389; 93005; 99284

== ENCOUNTER 2025-10-14 10:17 | Outpatient (CLI) | payer MEDICARE, SELFPAY ==
[2025-10-14 16:06] LABS: Hematocrit 39.6 % (42.0-52.0); Hemoglobin 12.5 g/dL (14.1-18.0); Immature Granulocytes % 0.5 %; Mean Corpuscular HGB Conc 31.6 g/dL (31.8-35.4); Mean Corpuscular Hemoglobin 29.3 pg (27.0-31.2); Mean Corpuscular Volume 92.7 fl (80-94); Nucleated Red Blood Cells % 1.0 %; Platelet Count 615 K/mm3 (142-424); Red Blood Count 4.27 M/mm3 (4.60-6.20); Red Cell Distribution Width-SD 66.6 fL; White Blood Count 8.6 K/mm3 (4.8-10.8)
[2025-10-14 16:39] LABS: Alanine Aminotransferase 20 U/L (12-78); Albumin Level 5.2 g/dl (3.5-5.0); Albumin/Globulin Ratio 1.5 (1.1-1.8); Alkaline Phosphatase 111 U/L (38-126); Anion Gap 17.7 mEq/L (5-15); Aspartate Amino Transferase 31 U/L (17-59); Bilirubin,Total 0.9 mg/dl (0.2-1.3); Blood Urea Nitrogen 19 mg/dl (9-20); Calcium 9.9 mg/dl (8.4-10.2); Carbon Dioxide 31 mmol/L (22.0-30.0); Chloride 94 mmol/L (98-107); Cholesterol 148 mg/dl (140-200); Creatinine,Serum 0.80 mg/dl (0.66-1.25); Estimated Glomerular Filt Rate 92 ml/min (>60); GFR (African American) 111 ML/MIN (>60); Globulin 3.4 g/dL (1.3-3.2); Glucose 155 mg/dl (74-100); HDL Cholesterol 56 mg/dl (40-60); Potassium 5.7 mmoL/L (3.5-5.1); Sodium 137 mmol/L (136-145); Total Protein,Serum 8.6 g/dl (6.3-8.2); Triglycerides 136 mg/dl (30-150)
[2025-10-14 16:49] LABS: Hemoglobin A1C 8.6 % (4.0-6.0)
--- OUTSIDE RECORDS SUMMARY | 2025-10-15 12:50 | XMS_ITS | Clinical Summary ---
Author Organization [facility] Address [address] [place] [address] Care Team Providers Care Beef Cattle Farmer Name Role Phone Unavailable Primary Care Provider [...] - 1-dose 75+ series) 2016 Influenza Vaccine (#1) 2025 HPV Aged Out No longer eligi ble based on patient's age to complete this topic Meningococcal conjugate mady nt 4 (MCV4) Aged Out No longer eligible b ased on patient's age to complete this topic RSV Immunization (<20 months) Aged Out No longer eligible based on patient's age to complete this topic
--- OUTSIDE RECORDS SUMMARY | 2025-10-15 12:50 | XMS_ITS | Clinical Summary ---
Author Organization 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 10/30/19 19 Active Active Problems Problem Noted Date Diagnosed Date History of transmetatarsal amputation of left fo ot 12/23/2018 PAD (peripheral artery disease) 11/17/2018 Overview (11/17/2018): Added automatically from request for surgery [id number] Type 2 diabetes mellitus, wi th long-term current use of insulin 04/14/2012 Hyperlipidemia 04/14/2012 Atherosclerosis of [place] ar teries of extremities with intermittent claudication, right leg Surgical History Surgery Date Site/Laterality Comments SPLENECTOMY HEMORRHOID SURGERY FOOT AMPUTATION THROUGH METATARSAL Left VASCULAR SURGERY CORONARY ARTERY BYPASS GRAFT x 4 in 1994 ANGIOPLASTY 12/22/2018 Right Right ileoFemoral endarterectomy with patch angioplasty Right profunda endartarectomy patch angioplasty Excisional biopsy right femoral lymph node; Surgeon: Mehdi Oviedo MD; Location: [facility] MAIN OR; Service: Vascular Medical devices from [...] on file Sexual Orientation Not on file Last Filed Vital Signs Vital Sign Reading [...] Health Maintenance Due Date Last Done Comments COVID-19 Vaccine (#1) 1941 Meningococcal Vaccine ACWY ( 1 - Risk 2-dose series) 1943 Wellness Exam Medicare 1944 Lipids 1951 Meningococcal B Vaccine (1 o [...] this topic Medical Devices Implanted Type Area Cushion Installer Device Identifier Shelf Expiration Date Model / Serial / Lot Cataract Lens Leg Stent Leg Stent Cardiac Stent Patch Vascular Biologic Xenosure 0.8cm X 8cm - [id number] Implanted:Qty: 1 on 12/22/2018 by Mehdi Oviedo MD at [facility] Right: Femoral Artery [employer] VASCULAR 04/20/2024 0.8P8 / / [id number] Patch Vascular Biologic Xenosure 0.8cm X 8cm - [id number] Implanted:Qty: 1 on 12/22/2018 by Mehdi Oviedo MD at [facility] Right: Femoral Artery LEMAITRE VASCULAR 06/20/2024 0.8P8 / / [id number] Procedures Procedure Name Priority Date/Time Associated Diagnosis Comments BASIC METABOLIC PANEL Routine 12/23/2018 5:28 AM EST ALBUMIN/CREATININE RATIO, RANDOM URINE Routine 12/22/2018 8:36 PM EST HEMOGLOBIN [...] 6:05 AM EST [facility] Anion Gap 6(L) 7 - 16 mmol/L 12/23/2018 6:05 AM EST [facility] Calcium 8.7(L) 8.8 - 10.2 mg/dL 12/23/2018 6:05 AM EST [facility] Glucose Lvl 161(H) 82 - 100 mg/dL 12/23/2018 6:05 AM EST [facility] BUN 13 8 - 23 mg/dL 12/23/2018 6:05 AM EST [facility] Creatinine 0.97 0.67 - 1.30 mg/dL 12/23/2018 6:05 AM EST [facility] GFR Afr Am 87 >=60 mL/min/1.7 3 m2 12/23/2018 6:05 AM EST [facility] GFR Non Afr Am 75 >=60 mL/min/1.7 3 m2 12/23/2018 6:05 AM EST [facility] Comment: This estimated GFR was calculated using [...] 5:28 AM EST 12/23/2018 5:31 AM EST Mehdi Oviedo MD CHEMISTRY ORDERABLES Final Re sult [facility] [address] [facility] , [place] [address] * MICROALBUMIN/CREATININE RATIO URINE (12/22/2018 8:36 PM EST) Urine Albumin <12.0 mg/L 12/22/2018 9:49 PM EST [facility] Urine Creatinine 12.4 mg/dL 12/23/19 9:49 PM EST [facility] Ur Albumin/Creat Ratio 0 - 30 mg/g 12/22/2018 9:49 PM EST [employer] Comment: Because the albumin level is below [...] URINE ORDERABLES Final Result Performing Organization Address [facility] de Phone Number [employer] [address] [facility] , [place] [address] * (ABNORMAL) HEMOGLOBIN A1C (12/22/2018 6:45 PM EST) Hgb A1C 6.4(H) 4.2 - 5.6 % 12/22/2018 7:12 PM EST [employer] Est. Avg Glucose 137 mg/dL 12/22/2018 7:12 PM EST [employer] Blood VENOUS BLOOD / Unknown Butterfly / Unknown 12/22/2018 6:45 PM EST 12/22/2018 6:48 PM EST Narrative [employer] - 12/22/2018 7:12 PM EST REFERENCE RANGE: Normal: 4.0-5.6% Pre-diabetes: 5.7-6.4% Provisional diagnosis of diabetes: >6.4% Hgb F>10% and anything which shortens red cell survival, such as hemolytic anemia, or unstable hemoglobin variants such as HbSS, HbSC, or HbCC, will lower the HbA1c value associated with a given level of glycemic control. Mehdi Oviedo MD CHEMISTRY ORDERABLES Final Re sult Performing Organization Address [facility] Co de Phone Number [employer] [address] [facility] [place] [address] from Last 3 Months or Most Recently Relevant to Health Maintenance Insurance [place]ICARE [place] PART A [place] B [place]PP[place]AL [place] B [place]AL Advance Directives For more information, please contact: [phone] Documents on File Type Date Recorded Patient Clinical Pharmacy Specialist Expl anation ADVANCE DIRECTIVE 12/22/2018 10:35 AM Care Teams Core Shaper Relationship Specialty Start Date End Date Floyd Olea MD [address] [facility] [address] [place] [id number] PCP - General Internal Medicine 04/14/12 Sy Ly MD Surgeon Surgery-Vascular Surgery 11/09/11 Neto Sauceda MD [address] [facility] [address] [place] [id number] Consulting Physician Internal Medicine-Cardiovascular Disease 11/14/18
[2025-10-16 15:11] LABS: Albumin 3.8 g/dL (2.9-4.4); Alpha-1-Globulin 0.3 g/dL (0.0-0.4); Alpha-2-Globulin 1.2 g/dL (0.4-1.0); Gamma Globulin 1.3 g/dL (0.4-1.8)
[2025-10-21 15:27] LABS: PDF SCANNED IMAGE
== END 2025-10-14 23:59 | disposition home or self-care (01) ==
LOC: LAB.DROPOF 10-15 12:47
PROVIDERS: PCP Internal Medicine; Visit Provider Internal Medicine
DX: E11.59 Type 2 diabetes mellitus with other circulatory complications (principal); I10 Essential (primary) hypertension; E11.42 Type 2 diabetes mellitus with diabetic polyneuropathy; E78.2 Mixed hyperlipidemia; M06.9 Rheumatoid arthritis, unspecified; D64.9 Anemia, unspecified; R77.9 Abnormality of plasma protein, unspecified; Z12.5 Encounter for screening for malignant neoplasm of prostate
CPT/HCPCS: 80053; 80061; 83036; 84155; 84165; 85025; G0103